=== PATIENT | female | born 1955 | race Caucasian/White ===

== ENCOUNTER 2018-01-15 20:57 | Observation (INO) | payer OTHER, SELFPAY ==
[2018-01-15] VITALS (7 sets, daily range): BP systolic 141–189; BP diastolic 66–104; PULSE 73–101; RESP 14–20; TEMP 36.3–36.9; O2SAT 97–100; BMI 32.2; BMI 33.5; BMI 33.6
--- NOTE | 2018-01-15 21:13 | EKG12_ITS ---
Test Reason : CP Blood Pressure : / mmHG Vent. Rate : 086 BPM Atrial Rate : 086 BPM P-R Int : 148 ms QRS Dur : 098 ms QT Int : 384 ms P-R-T Axes : 026 -20 036 degrees QTc Int : 459 ms Sinus rhythm with frequent Premature ventricular complexes Nonspecific ST abnormality Abnormal ECG Confirmed by ARLYN MCKEON, CHIRAG ([id number]), film or videotape editor MILES KINSEY ([id number]) on 01/16/2018 2:30:24 PM Referred By: DIXIE Confirmed By:CHIRAG STODDARD MD
--- NOTE | 2018-01-15 21:15 | RAD_ITS ---
STUDY: X-RAY CHEST REASON FOR EXAM: Female, 62 years old. Shortness of breath TECHNIQUE: Single AP portable view of the chest. COMPARISON: None. FINDINGS: The lungs are clear and expanded. There is no demonstrated pleural abnormality. Normal size heart. Normal mediastinum and jayson. Normal visualized pulmonary arteries. Normal visualized aortic arch and descending thoracic aorta. Normal visualized thoracic spine. Normal visualized ribs, clavicles, and shoulders. There is no demonstrated abnormality of the visualized soft tissue structures of the upper abdomen. RAD/Chest 1 View (Portable) IMPRESSION: Normal x-ray examination of the chest. Electronically Signed: Darryl Rodriguez MD at 21:42 EST , Service support ,
[2018-01-15 21:24] LABS: Absolute Lymphocyte Count 2.63 X10^3/ul (0.83-4.51); Basophil# 0.02 X10^3/uL; Basophil% 0.3 % (0-1); Eosinophil# 0.43 X10^3/uL; Eosinophils% 5.4 % (0-5); Hematocrit 43.6 % (37-47); Hemoglobin 14.2 g/dl (12.0-15.0); Lymphocyte # 2.63 X10^3/ul (4.0); Lymphocyte % 33.2 % (19-41); Mean Corp Hgb Conc 32.6 g/gl (32-36); Mean Corpuscular Hgb 28.6 pg (27.0-32.0); Mean Corpuscular Volume 87.9 fL (81-99); Mean Platelet Vol. 10.1 fl (6.2-12.0); Monocyte# 0.81 X10^3/uL; Monocyte% 10.2 % (0-10); Neutrophil # 4.03 X10^3/uL (2.7-7.7); Neutrophil % 50.8 % (47-70); POSITIVE COUNT NO; POSITIVE DIFFERENTIAL NO; POSITIVE MORPHOLOGY NO; Platelet Count 283 K/mm3 (150-450); RBC Distribution Width CV 13.5 % (11.6-14.6); RBC Distribution Width SD 43.1 fl (35.1-43.9); Red Blood Count 4.96 M/mm3 (4.2-5.4); White Blood Count 7.9 K/mm3 (4.4-11.0)
[2018-01-15] MEDS: Aspirin 81 MG TAB.CHEW 324 MG PO (21:26)
[2018-01-15 21:44] LABS: Anion Gap 5 (5-15); BUN 22 mg/dL (7-18); BUN/Creat Ratio 19.8 RATIO (10-20); Calcium,Total 9.1 mg/dL (8.5-10.1); Chloride 104 mmol/L (98-107); Creatinine, Serum 1.11 mg/dL (0.55-1.02); EST Glomerular Filtration Rate 53 mL/min (>60); Est Glom Filt Rate - Afr Amer 64 mL/min (>60); Estimated Creatinine Clearance 44.21 ml/min; Glucose 125 mg/dL (74-106); Potassium 3.8 mmol/L (3.5-5.1); Sodium Level 137 mmol/L (136-145)
--- NOTE | 2018-01-15 21:54 | ED.DCSUM_ITS ---
- ER Visit Summary Date of Service: 01/15/18 Chief Complaint: Chest pain History of Present Illness: The patient is a 62 F she reports that approximately 45 minutes ago while at rest she had the onset of a left-sided chest tightness associated with shortness of breath. States that it is 7 out of 10 at worst and 4-10 currently. She denies any associated nausea, vomiting, or diaphoresis. She reports that after this came on she began to feel anxious and went outside to try to catch her breath. She denies any chest pain or change in dyspnea exertion in the past week. She has never had a stress test or heart catheterization. Physical Examination: Vitals: Stable. Afebrile. General: Well-nourished and well-developed. Head: Normocephalic atraumatic. Neck: Supple, no lymphadenopathy. No JVD. Nontender. Cardiovascular: Regular rate and rhythm. No murmurs. Respiratory: No respiratory distress. Clear to auscultation bilaterally. Abdominal: Soft, nontender, nondistended, normal bowel sounds. No guarding, rebound, or peritoneal signs. Back: Nontender. Extremities: Nontender, no edema. Skin: Normal color, no rash. Neurologic: Alert and oriented ?3. Cranial nerves II through XII are intact. Normal strength and sensation. Psych: Normal affect. Test Results: EKG is sinus at 86 with no acute changes. Troponin is negative. Chem-7 is more for BUN of 22, creatinine 1.11, glucose 125. CBC is more for monocytes of 10. Chest x-ray is normal. Emergency Department Course and Treatment: Patient was treated with aspirin. She is resting comfortably. Treatment Plan: The patient was discussed with Dr. Barker. She will be admitted to the hospital for further evaluation and treatment. Disposition: Admitted in improved condition. Impression: 1. Chest pain. 2. JEANINE score of 0. This note was generated with [employer] dictation software. It may contain incorrect words, spelling, and punctuation that were not noted in review of the chart prior to signing ED Disposition - Plan for ED Patient: Chief Complaint: Shortness of Breath Referrals: Neftali Lowe MD [Primary Care Provider] -
--- NOTE | 2018-01-15 22:13 | PCM.HP.STD ---
Problem List (1) Atypical chest pain Status: Acute (2) Anxiety Status: Chronic History of Present Illness Date of Admission: 01/15/18 Chief Complaint: Chest pain today The patient is a 62 year old F with no significant past medical history except anxiety on bupropion came to ER with left-sided chest pain at about 8 PM. She was nervous and anxiety and upset at the workplace with her bowels. She also lifted firewood in the evening but this is not first time and then she felt bilateral shoulder discomfort. After that she was short of breath and felt like she could not take deep breath. She was restless and then developed left-sided chest pain which lasted about an hour. Chest pain was limited on the left side without radiation and has now almost resolved. She denies palpitation, near syncope or syncope. She never had SD or coronary artery disease. In ED her blood pressure was high 189/95 currently systolic 150s. Patient does not want antihypertensive medication and she said her blood pressure in the PCP office recently was 130/84. [] Initial blood workup in the ER is unremarkable. EKG shows normal sinus rhythm with frequent PVCs. Past Medical History Past Medical History (Chronic Problems): Chronic Problems Anxiety (Chronic) Allergies cefazolin [From Anc] Allergy (Verified 01/15/18 21:02) Shortness of breath codeine Allergy (Verified 01/15/18 21:02) Unknown Home Medications: Ambulatory Orders Medication Instructions Recorded Bupropion HCl [Bupropion HCl Sr] 150 mg PO DAILY 01/15/18 Spironolactone 25 mg PO DAILY 01/15/18 Surgical History: no surgical history Smoking Status: Never smoker - *Family History Paternal History Items: No pertinent history Review of Systems Constitutional: Denies: Chills, Fever, Weight Change HEENT: Denies: Head Aches, Sinus Congestion, Sinus Drainage Cardiovascular: Reports: Chest Pain. Denies: Palpitations Respiratory: Reports: Shortness of Breath. Denies: Cough, Shortness of breath at rest, Sputum production Gastrointestinal: Denies: Abdominal Pain, Nausea, Vomiting Genitourinary: Denies: Dysuria Musculoskeletal: Denies: Joint Pain, Joint Tenderness Skin: Denies: Rash, Wounds Neurological: Denies: Numbness, Tingling, Focal weakness Psychiatric: Denies: Anxiety, Depression, Homicidal Ideations, Suicidal Ideations Hematologic/ Lymphatic: Denies: Easy Bruising, Easy Bleeding VTE Information - Inpt Only VTE Present on Admission: No VTE Mechan Device Prophylaxis: SCD's VTE Pharm Prophylaxis ordered?: Yes Patient Problems: Active and Suspected Problems Atypical chest pain (Acute) - Physical Exam General: Alert, Oriented x3, Cooperative HEENT: Atraumatic, PERRLA, EOMI, Normocephalic Neck: Supple, No JVD, Negative Carotid Bruits Lungs: Clear to auscultation, Normal air movement, No rhonchi, No wheeze, No rales Cardiovascular: Regular rate, Regular Rhythm, Normal S1, Normal S2, No murmurs Abdomen: Bowel Sounds Present, Soft, Non Tender, Non-Distended Extremities: No edema, Capillary Refill Less than 3 Seconds Skin: No rashes, No breakdown Musculoskeletal: No Tenderness to Palpation of Joints or Extremities Neurological: Cranial nerves II-XII grossly intact Psych/Mental Status: Normal Affect, Appropriate Vital Signs Temp Pulse Resp BP Pulse Ox 97.4 F L 92 14 189/95 H 100 01/15/18 20:57 01/15/18 21:04 01/15/18 21:04 01/15/18 21:04 01/15/18 21:21 Oxygen Flow Rate 2 Oxygen Delivery Method Nasal Cannula Weight: 188 lb Body Mass Index (BMI) 32.2 Laboratory Tests Past 24 Hrs 01/15/18 01/15/18 21:10 21:10 WBC 7.9 RBC 4.96 Hgb 14.2 Hct 43.6 MCV 87.9 MCH 28.6 MCHC 32.6 RDW 13.5 RDW Differential 43.1 Plt Count 283 MPV 10.1 Immature Gran % (Auto) 0.100 Neut % (Auto) 50.8 Lymph % (Auto) 33.2 Gates % (Auto) 10.2 H Eos % (Auto) 5.4 H Baso % (Auto) 0.3 Absolute Neuts (auto) 4.0 Absolute Lymphs (auto) 2.63 Total Counted Not Reportable Sodium 137 Potassium 3.8 Chloride 104 Carbon Dioxide 28.0 Anion Gap 5 BUN 22 H Creatinine 1.11 H Estim Creat Clear Calc 44.21 Est GFR (MDRD) Af Amer 64 Est GFR (MDRD) Non-Af 53 L BUN/Creatinine Ratio 19.8 Glucose 125 H Calcium 9.1 Troponin I < 0.02 Assessment/Plan Active and Suspected Problems Atypical chest pain (Acute) The patient is a 62 year old F with no significant past medical history except anxiety on bupropion came to ER with left-sided chest pain at about 8 PM. She was nervous and anxiety and upset at the workplace with her Boss. She was restless and then developed left-sided chest pain which lasted about an hour. Chest pain was limited on the left side without radiation, aggravating or relieving factor and has now almost resolved. She denies palpitation, near syncope or syncope. She never had SD or coronary artery disease. In ED her blood pressure was high 189/95 currently systolic 150s. Patient does not want antihypertensive medication and she said her blood pressure in the PCP office recently was 130/84. [] Initial blood workup in the ER is unremarkable. EKG shows normal sinus rhythm with frequent PVCs. 1. Atypical chest pain: Patient is being admitted as an observation in the PCU. ACS protocol with serial cardiac enzymes and treadmill nuclear stress test tomorrow morning. Discussed with the plan and patient agreed that if stress test negative, can be discharged tomorrow. On sublingual nitro as needed for chest pain. 2. Elevated blood pressure probably related to anxiety: Patient denies history of hypertension. Given the option of antihypertensive medication, patient wanted to wait and watch and declined for medication. 3. Chronic anxiety and possible depression: Continue bupropion. DVT prophylaxis: Moderate risk: On Lovenox and bilateral SCDs This note was generated with [employer] dictation software. Every effort was made to ensure accuracy, however computerized animal attendant mistakes may persist. Code Visit OBSV E&M: 88059 Initial observation care L3
--- NOTE | 2018-01-15 22:23 | HP.PCM_ITS ---
Problem List (1) Atypical chest pain Status: Acute (2) Anxiety Status: Chronic History of Present Illness Date of Admission: 01/15/18 Chief Complaint: Chest pain today The patient is a 62 year old F with no significant past medical history except anxiety on bupropion came to ER with left-sided chest pain at about 8 PM. She was nervous and anxiety and upset at the workplace with her bowels. She also lifted firewood in the evening but this is not first time and then she felt bilateral shoulder discomfort. After that she was short of breath and felt like she could not take deep breath. She was restless and then developed left- sided chest pain which lasted about an hour. Chest pain was limited on the left side without radiation and has now almost resolved. She denies palpitation , near syncope or syncope. She never had IN or coronary artery disease. In ED her blood pressure was high 189/95 currently systolic 150s. Patient does not want antihypertensive medication and she said her blood pressure in the PCP office recently was 130/84. [] Initial blood workup in the ER is unremarkable. EKG shows normal sinus rhythm with frequent PVCs. Past Medical History Past Medical History (Chronic Problems): Chronic Problems Anxiety (Chronic) Allergies cefazolin [From Anc] Allergy (Verified 01/15/18 21:02) Shortness of breath codeine Allergy (Verified 01/15/18 21:02) Unknown Home Medications: Ambulatory Orders Medication Instructions Recorded Bupropion HCl [Bupropion HCl Sr] 150 mg PO DAILY 01/15/18 Spironolactone 25 mg PO DAILY 01/15/18 Surgical History: no surgical history Smoking Status: Never smoker - *Family History Paternal History Items: No pertinent history Review of Systems Constitutional: Denies: Chills, Fever, Weight Change HEENT: Denies: Head Aches, Sinus Congestion, Sinus Drainage Cardiovascular: Reports: Chest Pain. Denies: Palpitations Respiratory: Reports: Shortness of Breath. Denies: Cough, Shortness of breath at rest, Sputum production Gastrointestinal: Denies: Abdominal Pain, Nausea, Vomiting Genitourinary: Denies: Dysuria Musculoskeletal: Denies: Joint Pain, Joint Tenderness Skin: Denies: Rash, Wounds Neurological: Denies: Numbness, Tingling, Focal weakness Psychiatric: Denies: Anxiety, Depression, Homicidal Ideations, Suicidal Ideations Hematologic/ Lymphatic: Denies: Easy Bruising, Easy Bleeding VTE Information - Inpt Only VTE Present on Admission: No VTE Mechan Device Prophylaxis: SCD's VTE Pharm Prophylaxis ordered?: Yes Patient Problems: Active and Suspected Problems Atypical chest pain (Acute) - Physical Exam General: Alert, Oriented x3, Cooperative HEENT: Atraumatic, PERRLA, EOMI, Normocephalic Neck: Supple, No JVD, Negative Carotid Bruits Lungs: Clear to auscultation, Normal air movement, No rhonchi, No wheeze, No rales Cardiovascular: Regular rate, Regular Rhythm, Normal S1, Normal S2, No murmurs Abdomen: Bowel Sounds Present, Soft, Non Tender, Non-Distended Extremities: No edema, Capillary Refill Less than 3 Seconds Skin: No rashes, No breakdown Musculoskeletal: No Tenderness to Palpation of Joints or Extremities Neurological: Cranial nerves II-XII grossly intact Psych/Mental Status: Normal Affect, Appropriate Vital Signs Temp Pulse Resp BP Pulse Ox 97.4 F L 92 14 189/95 H 100 01/15/18 20:57 01/15/18 21:04 01/15/18 21:04 01/15/18 21:04 01/15/18 21:21 Oxygen Flow Rate 2 Oxygen Delivery Method Nasal Cannula Weight: 188 lb Body Mass Index (BMI) 32.2 Laboratory Tests Past 24 Hrs 01/15/18 01/15/18 21:10 21:10 WBC 7.9 RBC 4.96 Hgb 14.2 Hct 43.6 MCV 87.9 MCH 28.6 MCHC 32.6 RDW 13.5 RDW Differential 43.1 Plt Count 283 MPV 10.1 Immature Gran % (Auto) 0.100 Neut % (Auto) 50.8 Lymph % (Auto) 33.2 Harlan % (Auto) 10.2 H Eos % (Auto) 5.4 H Baso % (Auto) 0.3 Absolute Neuts (auto) 4.0 Absolute Lymphs (auto) 2.63 Total Counted Not Reportable Sodium 137 Potassium 3.8 Chloride 104 Carbon Dioxide 28.0 Anion Gap 5 BUN 22 H Creatinine 1.11 H Estim Creat Clear Calc 44.21 Est GFR (MDRD) Af Amer 64 Est GFR (MDRD) Non-Af 53 L BUN/Creatinine Ratio 19.8 Glucose 125 H Calcium 9.1 Troponin I < 0.02 Assessment/Plan Active and Suspected Problems Atypical chest pain (Acute) The patient is a 62 year old F with no significant past medical history except anxiety on bupropion came to ER with left-sided chest pain at about 8 PM. She was nervous and anxiety and upset at the workplace with her Boss. She was restless and then developed left-sided chest pain which lasted about an hour. Chest pain was limited on the left side without radiation, aggravating or relieving factor and has now almost resolved. She denies palpitation, near syncope or syncope. She never had IN or coronary artery disease. In ED her blood pressure was high 189/95 currently systolic 150s. Patient does not want antihypertensive medication and she said her blood pressure in the PCP office recently was 130/84. [] Initial blood workup in the ER is unremarkable. EKG shows normal sinus rhythm with frequent PVCs. 1. Atypical chest pain: Patient is being admitted as an observation in the PCU. ACS protocol with serial cardiac enzymes and treadmill nuclear stress test tomorrow morning. Discussed with the plan and patient agreed that if stress test negative, can be discharged tomorrow. On sublingual nitro as needed for chest pain. 2. Elevated blood pressure probably related to anxiety: Patient denies history of hypertension. Given the option of antihypertensive medication, patient wanted to wait and watch and declined for medication. 3. Chronic anxiety and possible depression: Continue bupropion. DVT prophylaxis: Moderate risk: On Lovenox and bilateral SCDs This note was generated with [employer] dictation software. Every effort was made to ensure accuracy, however computerized set up mechanic coating machines mistakes may persist. Code Visit OBSV E&M: 12554 Initial observation care L3
[2018-01-16 03:12] VITALS: PULSE 64
[2018-01-16 04:50] VITALS: BP 139/84; PULSE 65; RESP 14; TEMP 36.6; O2SAT 97
[2018-01-16] MEDS: 0.9% NaCl Peripheral Flush Adult/Peds IV (05:03)
[2018-01-16 05:21] LABS: Absolute Lymphocyte Count 1.66 X10^3/ul (0.83-4.51); Absolute Neutrophil Count 4.2 X10^3/uL (2.0-7.7); Basophil# 0.03 X10^3/uL; Basophil% 0.4 % (0-1); Eosinophil# 0.25 X10^3/uL; Eosinophils% 3.7 % (0-5); Hematocrit 43.4 % (37-47); Lymphocyte # 1.66 X10^3/ul (4.0); Lymphocyte % 24.3 % (19-41); Mean Corp Hgb Conc 32.3 g/gl (32-36); Mean Corpuscular Hgb 28.5 pg (27.0-32.0); Mean Corpuscular Volume 88.2 fL (81-99); Mean Platelet Vol. 10.1 fl (6.2-12.0); Monocyte# 0.64 X10^3/uL; Monocyte% 9.4 % (0-10); Neutrophil # 4.24 X10^3/uL (2.7-7.7); Neutrophil % 62.1 % (47-70); Platelet Count 271 K/mm3 (150-450); RBC Distribution Width CV 13.5 % (11.6-14.6); RBC Distribution Width SD 43.7 fl (35.1-43.9); Red Blood Count 4.92 M/mm3 (4.2-5.4); White Blood Count 6.8 K/mm3 (4.4-11.0)
[2018-01-16 05:24] LABS: POSITIVE COUNT NO; POSITIVE DIFFERENTIAL NO; POSITIVE MORPHOLOGY NO
[2018-01-16 05:46] LABS: Anion Gap 7 (5-15); BUN 22 mg/dL (7-18); BUN/Creat Ratio 25.7 RATIO (10-20); Chloride 104 mmol/L (98-107); Cholesterol 230 mg/dL (200); Creatinine, Serum 0.86 mg/dL (0.55-1.02); EST Glomerular Filtration Rate 71 mL/min (>60); Est Glom Filt Rate - Afr Amer 86 mL/min (>60); Estimated Creatinine Clearance 57.07 ml/min; Glucose 93 mg/dL (74-106); High Density Lipoprotein 58 mg/dL; Potassium 4.5 mmol/L (3.5-5.1); Sodium Level 141 mmol/L (136-145); Thyroid Stim Hormone (TSH) 2.22 uIU/mL (0.358-3.74); Triglycerides 141 mg/dL; Very Low Density Lipoprotein 28 mg/dL (5-40)
[2018-01-16 05:52] LABS: International Normalized Ratio 1.2; Partial Thromboplast Time 29.6 Seconds (24.1-36.2); Prothrombin Time (Protime)PT. 14.6 SECONDS (11.7-14.9)
--- NOTE | 2018-01-16 05:55 | EKG12_ITS ---
Test Reason : AM EKG Blood Pressure : / mmHG Vent. Rate : 063 BPM Atrial Rate : 063 BPM P-R Int : 160 ms QRS Dur : 098 ms QT Int : 442 ms P-R-T Axes : 023 -20 018 degrees QTc Int : 452 ms Normal sinus rhythm Normal ECG When compared with ECG of 15-JAN-2018 21:07, MANUAL COMPARISON REQUIRED, DATA IS UNCONFIRMED Confirmed by ARLYN MCKEON, CHIRAG ([id number]), electronic news gathering editor MILES KINSEY ([id number]) on 01/23/2018 1:21:27 PM Referred By: DR KELLOGG Confirmed By:CHIRAG STODDARD MD
[2018-01-16 06:54] VITALS: PULSE 69
--- NOTE | 2018-01-16 08:45 | STRESSREP ---
Stress Test Report Exercise myocardial perfusion stress test. 62-year-old lady with a history of chest pain. Stress protocol: Resting EKG demonstrates normal sinus rhythm with a rate of 71 bpm. Resting blood pressure is 122/88 mmHg. The patient exercised according to the regular Celio protocol for a total duration of 7 minutes and 15 seconds completing 1 minute and 15 seconds into stage III of the Celio protocol. The maximum heart rate attained was 141 bpm which was 90% of the maximum predicted heart rate. The maximum workload was 8.9 metabolic equivalents. At rest there were no ST or T-wave changes noted to suggest ischemia at peak exercise upsloping ST changes only were noted we did not meet the criteria for ischemia. The resting blood pressure is 122/88 with a peak blood pressure 184/80. No angina was noted no arrhythmias were noted. The test was terminated due to leg fatigue. Myocardial perfusion protocol: 11.9 mCi of technetium 99m sestamibi was injected at rest. The patient exercised according to the regular Celio protocol. At peak exercise 33.4 mCi of technetium 99m sestamibi was injected. Stress and rest images were reconstructed and compared in the short axis vertical long and horizontal long axis. Gated images were also obtained. Perfusion SPECT analysis: Review of the stress images demonstrate normal uptake of tracer in all areas of the myocardium. The resting images similarly demonstrated normal uptake of tracer noted in all areas of the myocardium. No areas of reversibility are noted suggest ischemia no previous infarct is noted. Gated SPECT analysis: The gated ejection fraction is noted to be 75%. No wall motion abnormalities are present. Conclusion: Normal exercise myocardial perfusion stress test at a moderate workload with no evidence of ischemia. Preserved ejection fraction.
[2018-01-16 10:15] VITALS: BP 142/77; PULSE 75; RESP 18; TEMP 37.1; O2SAT 98
[2018-01-16] MEDS: Loratadine 10 MG Tablet PO (10:21)
[2018-01-16] MEDS: Spironolactone 25 MG Tablet PO (10:22)
[2018-01-16 11:12] VITALS: PULSE 74
--- NOTE | 2018-01-16 11:44 | PCM.DC ---
- Discharge Diagnoses Current Active Problems: Current Active and Chronic Problems Atypical chest pain (Acute) Anxiety (Chronic) You will use the following diet at home:: Cardiac - 3g sodium restriction Your food should be the consistency of: Regular Your liquids should be the consistency of: Regular/Thin Discharge Activity: Return to Normal Activity Allergies/Adverse Reactions: Allergies cefazolin [From Anc] Allergy (Verified 01/15/18 21:02) Shortness of breath codeine Allergy (Verified 01/15/18 21:02) Unknown Medications to take at Discharge Bupropion HCl [Bupropion HCl Sr] 150 mg PO DAILY 01/15/18 Cetirizine HCl [Zyrtec] 10 mg PO DAILY 01/15/18 Spironolactone 25 mg PO DAILY 01/15/18 Amlodipine [Norvasc] 5 mg PO DAILY #30 tab 01/16/18 Atorvastatin Calcium [Lipitor] 10 mg PO QHS #30 tab 01/16/18 The following prescriptions were given: Amlodipine [Norvasc] 5 mg PO DAILY #30 tab Atorvastatin Calcium [Lipitor] 10 mg PO QHS #30 tab Primary Care Physician: Neftali Lowe MD [Primary Care Provider] - Please follow up with your Primary Care Physician in: 1-2 weeks Proposed Discharge Date: 01/16/18
--- NOTE | 2018-01-16 12:04 | PCM.DC.SUM ---
Discharge Date and Diagnosis - Problem List Patient Problems: Active and Suspected Problems Atypical chest pain (Acute) Date of Admission: 01/15/18 Date of Discharge: 01/16/18 - Primary Discharge Diagnosis Active and Suspected Problems Atypical chest pain (Acute) - musculoskeletal HTN HLD Chronic anx/depression Chronic vertigo - Secondary Discharge Diagnosis Chronic Problems Anxiety (Chronic) Hospital Course and Treatment Imaging Results: 01/16/18 05:55 Nuclear Stress Test - Treadmil [NM] AM (NON MEDS) Conclusion: Normal exercise myocardial perfusion stress test at a moderate workload with no evidence of ischemia. Preserved ejection fraction. RAD/Chest 1 View (Portable) IMPRESSION: Normal x-ray examination of the chest. Operations: None Procedures: Stress test Summary of Care Provided: General: Resting comfortably NAD Psych: A/Ox3 normal affect HEENT: PEARRLA AT NC Neck: Supple NT CV: RRR no m/t/r/g/h Resp: CTA Abd: [id number] Soft NT no guarding or rigidity Ext: DP2+= no edema Skin: W/D normal turgor Lymph/Heme: No active bleeding or adenopathy Neuro: CN2-12 intact Hospital course: The patient is a 62 year old F who presented to the emergency room with chief complaint of chest pain that began that day earlier when she was highly stressed out with conversation with her boss, and after lifting firewood at home. She described her pain is left-sided with some pain in the shoulders as well. Pain lasts about an hour and was nonradiating. Had resolved by time she came to the emergency room. In the ER her blood pressure was significantly elevated at 189/95, she had negative troponin, negative chest x-ray, and EKG with PVCs. She is admitted for chest pain workup. Troponin was cycled remained negative. She was remained on telemetry with no events overnight. The following morning she had a normal EKG. She underwent stress testing which was negative for inducible ischemia. Lipid panel was checked and had an elevated LDL so she was started on low-dose atorvastatin. Her blood pressure did improve but did remain elevated in the 140 systolic so she was started on Norvasc. She is also started on daily baby aspirin. She is discharged home in stable condition and will need follow-up with her PCP in 1-2 weeks. This patient was seen by Isael Quintanilla PA-C under the supervision of Doctor Loly. [] Discharge Diet: Low fat/ Low Cholesterol, - - 3 g sodium daily Discharge Activity: Return to Normal Activity Home Medications: Medications to take at Discharge Bupropion HCl [Bupropion HCl Sr] 150 mg PO DAILY 01/15/18 Cetirizine HCl [Zyrtec] 10 mg PO DAILY 01/15/18 Spironolactone 25 mg PO DAILY 01/15/18 Amlodipine [Norvasc] 5 mg PO DAILY #30 tab 01/16/18 Aspirin [Aspirin, Baby] 81 mg PO DAILY@0800 #30 tab.chew 01/16/18 Atorvastatin Calcium [Lipitor] 10 mg PO QHS #30 tab 01/16/18 Following Prescrptions Were Given to Patient: Amlodipine [Norvasc] 5 mg PO DAILY #30 tab Aspirin [Aspirin, Baby] 81 mg PO DAILY@0800 #30 tab.chew Atorvastatin Calcium [Lipitor] 10 mg PO QHS #30 tab Primary Care Physician: Neftali Lowe MD [Primary Care Provider] - Please follow up with your Primary Care Physician in: 1-2 weeks Disposition: Home Minutes spent on discharge:: 35 Patient Condition:: Stable Meaningful Use Info Meaningful Use Diagnoses (Choose all that apply): None applicable
== END 2018-01-16 13:28 | disposition home or self-care (01) ==
LOC: ED 21:46 → PCU 22:15
PROVIDERS: Admitting Provider Internal Medicine; Emergency Provider Emergency Medicine; Family Provider Family Medicine; PCP Family Medicine; Visit Provider Family Medicine
DX: R07.89 Other chest pain (principal); E78.5 Hyperlipidemia, unspecified; R03.0 Elevated blood-pressure reading, without diagnosis of hypertension; F41.9 Anxiety disorder, unspecified; F32.9 Major depressive disorder, single episode, unspecified; Z79.899 Other long term (current) drug therapy
CPT/HCPCS: 36415; 71045; 78452; 80048; 80061; 84443; 84484; 85025; 85610; 85730; 93005; 93017; 99218; 99285; A9500; A4216; G0378

== ENCOUNTER → 2018-08-23 08:19 | Outpatient (CLI) | payer OTHER, SELFPAY ==
--- NOTE | 2018-08-23 08:22 | BI_ITS ---
MAMMOGRAPHY - BILATERAL SCREENING 3-D LELAND SYNTHESIS REASON FOR EXAM: Female, 62 years old. Bilateral Screening 3-D tomosynthesis PERTINENT HISTORY: Left breast excisional biopsy 1992. 1 paternal aunt and one maternal aunt, both approximate age 50. TECHNIQUE: 2-D mammograms and 3-D Leland synthesis of the breast (s) were performed. CAD was performed. COMPARISON: 06/25/2017, 05/05/2016 and 04/26/2015. FINDINGS: The breast composition is composed of scattered fibroglandular density. No dense spiculated dominant masses or suspicious microcalcification cluster are identified. No architectural distortion, asymmetric density, skin thickening or nipple retraction identified. There has been no significant change since the prior study. BI/SCREENING MAMM (CAD), BILAT IMPRESSION: No mammographic signs of malignancy. Routine yearly mammograms recommended. ASSESSMENT CATEGORY: BIRADS Category 2: Benign. A letter regarding these results will be sent to the patient by the facility within 30 days. FOLLOW UP RECOMMENDATION: Yearly follow up mammogram recommended. (A) Negative mammographic results should not deter biopsy as a palpable lesion if present should be followed based on clinical grounds and biopsy performed if clinically persistent for 3 months or increasing size. Approximately 10% of breast cancers are not detected by mammography. A normal mammogram should not delay biopsy of a clinically suspicious abnormality. Electronically Signed: Remi Luu, at 8:15 EDT Tel , Service support ,
== END ==
PROVIDERS: Family Provider Family Medicine; PCP Family Medicine; Referring Provider Family Medicine; Visit Provider Family Medicine
DX: Z12.31 Encounter for screening mammogram for malignant neoplasm of breast (principal)
CPT/HCPCS: 77063; 77067

== ENCOUNTER → 2018-09-23 13:06 | Outpatient (CLI) | payer OTHER, SELFPAY ==
--- NOTE | 2018-09-23 13:10 | RAD_ITS ---
STUDY: X-RAY - SOFT TISSUE NECK REASON FOR EXAM: Female, 62 years old. Snoring. Possible sleep apnea. TECHNIQUE: AP and lateral view(s) of the neck were obtained. COMPARISON: None. FINDINGS: Normal visualized nasopharynx, oropharynx, hypopharynx. The airway measures 12.2 mm from the base of the tongue to the anterior paravertebral soft tissues at the C2-C3 level. Normal epiglottis. Normal visualized subglottic tracheal air column. Normal prevertebral soft tissue structures. There are degenerative changes of the cervical spine with cervical spondylosis. The soft tissue structures are unremarkable. RAD/Neck for Soft Tissue IMPRESSION: The airway measures 12.2 mm from the base of the tongue into the anterior prevertebral soft tissues. Electronically Signed: Breezy Galan MD at 11:19 EST Tel [phone], Service support ,
== END ==
PROVIDERS: Family Provider Family Medicine; PCP Family Medicine; Referring Provider Otolaryngology Otolaryngology/Facial Plastic Surgery; Visit Provider Otolaryngology Otolaryngology/Facial Plastic Surgery
DX: R06.83 Snoring (principal)
CPT/HCPCS: 70360

== ENCOUNTER → 2019-09-19 08:02 | Outpatient (CLI) | payer OTHER, SELFPAY ==
[2019-09-19 10:24] LABS: Vitamin D,25 Hydroxy 29.3 ng/mL (29.95-100.01)
[2019-09-19 10:37] LABS: Anion Gap 10 (5-15); BUN 20 mg/dL (7-18); BUN/Creat Ratio 24.1 RATIO (10-20); Calcium,Total 9.1 mg/dL (8.5-10.1); Chloride 104 mmol/L (98-107); Cholesterol 240 mg/dL (200); Creatinine, Serum 0.83 mg/dL (0.55-1.02); EST Glomerular Filtration Rate 73 mL/min (>60); Est Glom Filt Rate - Afr Amer 89 mL/min (>60); Glucose 90 mg/dL (74-106); High Density Lipoprotein 62 mg/dL; Potassium 4.2 mmol/L (3.5-5.1); Sodium Level 139 mmol/L (136-145); Triglycerides 133 mg/dL; Very Low Density Lipoprotein 27 mg/dL (5-40)
== END ==
PROVIDERS: Family Provider Family Medicine; PCP Family Medicine; Visit Provider Family Medicine
DX: Z00.00 Encounter for general adult medical examination without abnormal findings (principal)
CPT/HCPCS: 36415; 80048; 80061; 82306

== ENCOUNTER → 2019-09-29 08:04 | Outpatient (CLI) | payer OTHER, SELFPAY ==
[2018-01-15 22:58] VITALS: BMI 33.5
--- NOTE | 2019-09-29 08:08 | BI_ITS ---
MAMMOGRAPHY - BILATERAL SCREENING REASON FOR EXAM: Female, 63 years old. Routine annual screening examination. PERTINENT HISTORY: Aunt with breast cancer. Remote left excisional breast biopsy. TECHNIQUE: Digital bilateral breast leland (3D mammographic acquisition) in the CC and MLO projections. 2-D mediolateral oblique (MLO) and craniocaudad (CC) views of both breasts were obtained. CAD: Full Field Digital Mammography with Computer Added Detection was performed. COMPARISON: Comparison is made with prior study September 17, 2018 and June 25, 2017. FINDINGS: Breast Composition: There are scattered areas of fibroglandular density. Questionable area of architectural distortion in the deep lateral aspect of the left breast as seen on the craniocaudad view. The patient will be recalled for additional views including compression spot views and exaggerated craniocaudad view. No other significant abnormalities are identified. BI/SCREEN MAMM (CAD) W/LELAND BILAT IMPRESSION: Focal area of architectural distortion in the deep lateral aspect of the left breast as seen on the craniocaudad view. Patient will be recalled for additional views. Recall Side: Left Breast ASSESSMENT CATEGORY: BIRADS Category 0: Incomplete. Need additional imaging evaluation. A letter regarding these results will be sent to the patient by the facility within 30 days. Approximately 10% of breast cancers are not detected by mammography. A normal mammogram should not delay biopsy of a clinically suspicious abnormality. [id number] Electronically Signed: Breezy Galan, at 11:19 EST , Service support ,
== END ==
PROVIDERS: Family Provider Family Medicine; PCP Family Medicine; Referring Provider Family Medicine; Visit Provider Family Medicine
DX: Z12.31 Encounter for screening mammogram for malignant neoplasm of breast (principal); Z80.3 Family history of malignant neoplasm of breast
CPT/HCPCS: 77063; 77067

== ENCOUNTER → 2019-09-30 08:53 | Outpatient (CLI) | payer OTHER, SELFPAY ==
--- NOTE | 2019-09-30 08:55 | BI_ITS ---
MAMMOGRAPHY - UNILATERAL DIAGNOSTIC: LEFT BREAST REASON FOR EXAM: Female, 63 years old. Abnormal screening mammogram. PERTINENT HISTORY: Aunt with breast cancer. TECHNIQUE: Compression spot views as well as a 90 degree lateral view of the left breast were obtained. An exaggerated craniocaudad view was obtained as well. CAD: Full Field Digital Mammography with Computer Added Detection was performed. COMPARISON: Comparison is made with prior mammogram dated September 29, 2019. FINDINGS: Breast Composition: There are scattered areas of fibroglandular density. The previously seen possible area of architectural distortion in the deep lateral aspect of the left breast is not seen at this time. This represents superimposition of tissue. No other significant abnormalities are identified. BI/DIAG MAMM W/CAD, UNILAT IMPRESSION: Negative unilateral diagnostic mammogram. Yearly followup mammogram recommended. (A) ASSESSMENT CATEGORY: BIRADS Category 2: Benign. A letter regarding these results will be sent to the patient by the facility within 30 days. Approximately 10% of breast cancers are not detected by mammography. A normal mammogram should not delay biopsy of a clinically suspicious abnormality. Electronically Signed: Breezy Galan, at 9:54 EST , Service support ,
== END ==
PROVIDERS: Family Provider Family Medicine; PCP Family Medicine; Referring Provider Family Medicine; Visit Provider Family Medicine
DX: R92.8 Other abnormal and inconclusive findings on diagnostic imaging of breast (principal); Z80.3 Family history of malignant neoplasm of breast
CPT/HCPCS: 77065

== ENCOUNTER → 2020-09-15 09:59 | Outpatient (CLI) | payer OTHER, SELFPAY ==
[2018-01-15 22:58] VITALS: BMI 33.5
[2020-09-15 12:48] LABS: Vitamin D,25 Hydroxy 27.1 ng/mL
[2020-09-15 12:53] LABS: Anion Gap 6 (5-15); BUN 14 mg/dL (7-18); BUN/Creat Ratio 16.1 RATIO (10-20); Calcium,Total 9.3 mg/dL (8.5-10.1); Chloride 104 mmol/L (98-107); Cholesterol 248 mg/dL (200); Creatinine, Serum 0.87 mg/dL (0.55-1.02); EST Glomerular Filtration Rate 69 mL/min (>60); Est Glom Filt Rate - Afr Amer 84 mL/min (>60); Glucose 89 mg/dL (74-106); High Density Lipoprotein 64 mg/dL; Potassium 4.2 mmol/L (3.5-5.1); Sodium Level 138 mmol/L (136-145); Triglycerides 210 mg/dL; Very Low Density Lipoprotein 42 mg/dL (5-40)
== END ==
PROVIDERS: PCP Family Medicine; Referring Provider Family Medicine; Visit Provider Family Medicine
DX: Z00.00 Encounter for general adult medical examination without abnormal findings (principal)
CPT/HCPCS: 36415; 80048; 80061; 82306

== ENCOUNTER → 2021-09-07 08:49 | Outpatient (CLI) | payer OTHER, SELFPAY ==
[2021-09-07 10:40] LABS: Anion Gap 6 (5-15); BUN 18 mg/dL (7-18); Calcium,Total 8.9 mg/dL (8.5-10.1); Chloride 106 mmol/L (98-107); Cholesterol 229 mg/dL (200); Creatinine, Serum 0.75 mg/dL (0.55-1.02); EST Glomerular Filtration Rate 82 mL/min (>60); Est Glom Filt Rate - Afr Amer 99 mL/min (>60); Glucose 91 mg/dL (74-106); High Density Lipoprotein 58 mg/dL; Sodium Level 140 mmol/L (136-145); Triglycerides 100 mg/dL; Very Low Density Lipoprotein 20 mg/dL (5-40)
[2021-09-07 12:48] LABS: Vitamin D,25 Hydroxy 40.8 ng/mL
== END ==
PROVIDERS: PCP Family Medicine; Referring Provider Family Medicine; Visit Provider Family Medicine
DX: Z00.00 Encounter for general adult medical examination without abnormal findings (principal); Z20.822 Contact with and (suspected) exposure to COVID-19
CPT/HCPCS: 36415; 80048; 80061; 82306; 86769

== ENCOUNTER 2022-01-14 11:32 | Emergency (ER) | payer OTHER, SELFPAY ==
[2022-01-14 11:33] VITALS: BP 186/83; PULSE 84; RESP 16; TEMP 36.3; O2SAT 97; BMI 31.6
--- NOTE | 2022-01-14 11:51 | ED.VIS.LOWEX ---
HPI History of Present Illness Chief Complaint: Lower Extremity Injury Informant: patient Occured/Mechanism Mechanism/Context: Yes blunt trauma Onset/Context/Timing Onset: Yesterday Context: Sudden Onset Timing: Continuous Quality of Pain: Aching Current Severity: Moderate Maximum Severity: Moderate Associated Symptoms Associated Symptoms: Negative for Parasthesia, Weakness and Loss of Funtion Narrative Narrative: 66 yo female history of hypertension. States that she was walking down the steps last night she missed a step and injured her right knee. She fell and hyperflexed and thinks she stretched the soft tissues around it. No prior right knee history. No surgery to the right knee. Denies any other injuries. Did not hit her head. No LOC. No neck or back pain. Prior similar symptoms: No Recent Illness/Hospitalization: No PFSH PFSH Home Medications bupropion HCl (smoking deter) 150 mg PO DAILY 01/15/18 [History Last Taken 01/15/18 08:00] cetirizine [Zyrtec] 10 mg PO DAILY 01/15/18 [History Last Taken 01/15/18 08:00] spironolactone 25 mg PO DAILY 01/15/18 [History Last Taken 01/15/18 08:00] amlodipine 5 mg PO DAILY #30 tab 01/16/18 [Rx Last Taken Unknown] aspirin 81 mg PO DAILY@0800 #30 tab.chew 01/16/18 [Rx Last Taken Unknown] atorvastatin 10 mg PO QHS #30 tab 01/16/18 [Rx Last Taken Unknown] Allergy/AdvReac Type Severity Reaction Status Date / Time cefazolin [From [facility]] Allergy Shortness Verified 01/14/22 11:34 of breath codeine Allergy Unknown Verified 01/14/22 11:34 Social History Smoking Status: Never smoker ROS ROS ED ROS Narrative Denies recent illness. Review of Systems ROS Unobtainable: Denies due to encephalopathy Constitutional Constitutional ED: Denies fever(s) Eyes Eyes: Denies change in vision ENT ENT ED: Denies ear pain Cardiovascular Cardiovascular: Denies chest pain Respiratory/Chest Respiratory/Chest: Denies dyspnea Gastrointestinal Gastrointestinal: Denies abdominal pain, diarrhea, nausea or vomiting Genitourinary Genitourinary ED: Denies dysuria Musculoskeletal Musculoskeletal: Denies myalgias Integumentary Denies rash Neurologic Neurologic: Denies headache(s) Psychiatric Psychiatric: Denies depression Endocrine Endocrinology: Denies polyuria Hematologic/Lymphatic Hematologic/Lymphatic: Denies easy bruising Allergic/Immunologic Allergic/Immunologic ED: Denies urticaria EXAM Physical Exam Narrative Exam Narrative: 58-year-old female no acute distress. Vital signs stable afebrile. H EENT exam unremarkable atraumatic nontender. C-spine nontender. Lungs are clear. Heart regular rhythm. Chest wall nontender. Abdomen soft nontender. Back and spine nontender no signs of trauma. Pelvic girdle intact. No shortening or rotation. No hip tenderness. Left lower extremity both upper extremities are nontender with normal range of motion, strength and sensation. Right knee tender. Minimal swelling. No significant large effusion. Ligaments are intact including the ACL, PCL, MCL, LCL. Also the quadriceps and infrapatellar tendons are intact. She can flex the knee with some discomfort. She can extend 180 degrees. She can lift her leg off the bed. No gross bony deformity. Right ankle and foot are nontender with normal range of motion and motor strength. Neurologic exam she is awake alert with no focal motor deficits. GCS of 15. Const Vital Signs: 01/14/22 11:33 Temperature 97.4 F L Temperature Source Temporal Pulse Rate 84 Respiratory Rate 16 Blood Pressure 186/83 H Blood Pressure Mean 117 Pulse Ox 97 Oxygen Delivery Method Room Air Positive well nourished and well developed; Negative for cachectic, contractures or unkempt General Appearance ED: well developed and NAD; Negative for unkempt, cachectic or contractures Nutritional Appearance: Negative for cachectic HEENT Reports moist mucous membranes normocephalic and atraumatic Eyes PERRL Neck full ROM and supple Thyroid: Negative for tender Chest Wall inspection of chest normal and palpation of chest normal Resp normal respiratory effort, no retractions and clear to auscultation bilaterally Auscultation: rales; Negative for rhonchi or wheezes Cardio regular rate, regular rhythm, S1 normal heart sound, S2 normal heart sound and no murmurs GI non-tender, non-distended and no masses Inspection: Negative for abdominal distention Auscultation: normoactive bowel sounds Palpation: soft; Negative for tender, guarding or rebound tenderness present Back/Spine no CVA tenderness General Back: Negative for CVA tenderness Cervical Spine: Negative for cervical spine tenderness Thoracic Spine / Upper Back: Negative for thoracic spinal tenderness Lumbar Spine / Lower Back: Negative for lumbar spinal tenderness Extremity normal to inspection and full ROM Extremity Narrative: Except tenderness of the right knee. Ligaments intact. Mild swelling. No significant effusion. Flexion extension intact. No bony deformity. General Extremety ED: Negative for cyanosis or edema General Extremity: Negative for cyanosis or edema Neuro oriented x3 Sensorium / Orientation: alert, oriented to person, oriented to place and oriented to time; Negative for confused or lethargic Motor Exam: strength 5/5 throughout Psych mental status grossly normal Appearance: Negative for unkempt Mood & Affect: Negative for anxious Skin no wounds Lesions: no lesions Rashes: no rashes Trauma: Negative for abrasion or laceration MDM MDM MDM Narrative Medical decision making narrative: Patient with a fall last night complaining of right knee pain. X-ray being obtained. Repeat exam at 12 PM unchanged. Patient be discharged home and treated as a knee sprain. Ice, elevate, Motrin and Tylenol for pain. Follow-up if not improving for further evaluation. I did discuss with the patient that x-rays are good for fractures and dislocations but are not good if there would be a soft tissue injury or an injury to the knee joint soft tissue. Radiography Diagnostic Testing: Right knee x-ray, 4 views, interpreted by myself. She has no acute abnormality. Chronic changes. No fracture. No dislocation. No significant effusion. Discharge Plan Triage Chief Complaint: Lower Extremity Injury ED Provider: Deandre Hernandez Dx/Rx/DC Orders Clinical Impression: Knee sprain, Fall Instructions: ED Knee Sprain Prescriptions: No Action spironolactone 25 MG tablet 25 mg PO DAILY RF: 0 bupropion HCl (smoking deter) 150 MG Tab.Er.12h 150 mg PO DAILY RF: 0 cetirizine [Zyrtec] 10 MG tablet 10 mg PO DAILY RF: 0 atorvastatin 10 MG tablet 10 mg PO QHS Qty: 30 RF: 0 amlodipine 5 MG tablet 5 mg PO DAILY Qty: 30 RF: 0 aspirin 81 MG Tab.Chew 81 mg PO DAILY@0800 Qty: 30 RF: 0 Primary Care Provider: Neftali Lowe Referrals: Neftali Lowe MD [Primary Care Provider] - 10-14 Days if not better Activity Restrictions/Additional Instructions: Ice and elevate your knee for the next several days. Motrin for pain and inflammation and Tylenol for pain. Increase activity slowly as tolerated. Follow-up with your primary care physician if not improving. The x-rays were unremarkable. Disposition Disposition: Home, Self Care
--- NOTE | 2022-01-14 12:05 | RAD_ITS ---
STUDY: X-RAY - RIGHT KNEE REASON FOR EXAM: Female, 66 years old. Status post fall TECHNIQUE: 4 view(s) of the knee. COMPARISON: None. FINDINGS: Normal visualized distal femur. Normal visualized proximal tibia and fibula. Normal proximal tibiofibular articulation. There is no demonstrated fracture. Normal medial femorotibial compartment. Normal lateral femorotibial compartment. There is mild to moderate degenerative arthrosis of the patellofemoral articulation. There is no demonstrated joint effusion. The soft tissue structures are unremarkable. RAD/Knee 4 or More Views IMPRESSION: Degenerative arthrosis. No demonstrated acute osseous injury. Electronically Signed: Shawn Wolff, at 12:31 EST ,
== END 2022-01-14 12:31 | disposition home or self-care (01) ==
PROVIDERS: Emergency Provider Emergency Medicine; PCP Family Medicine; Visit Provider Emergency Medicine
DX: S83.91XA Sprain of unspecified site of right knee, initial encounter (principal); W10.9XXA Fall (on) (from) unspecified stairs and steps, initial encounter; Y93.01 Activity, walking, marching and hiking; I10 Essential (primary) hypertension; Z79.899 Other long term (current) drug therapy
CPT/HCPCS: 73564; 99282

== ENCOUNTER → 2022-09-08 | Outpatient (CLI) | payer OTHER, SELFPAY ==
[2022-09-08 12:39] LABS: Anion Gap 6 (5-15); BUN 17 mg/dL (7-18); BUN/Creat Ratio 20.5 RATIO (10-20); Calcium,Total 9.1 mg/dL (8.5-10.1); Chloride 104 mmol/L (98-107); Cholesterol 228 mg/dL (200); Creatinine, Serum 0.83 mg/dL (0.55-1.02); EST Glomerular Filtration Rate 72 mL/min (>60); Est Glom Filt Rate - Afr Amer 88 mL/min (>60); Glucose 95 mg/dL (74-106); High Density Lipoprotein 65 mg/dL; Potassium 4.3 mmol/L (3.5-5.1); Sodium Level 137 mmol/L (136-145); Triglycerides 163 mg/dL; Very Low Density Lipoprotein 33 mg/dL (5-40); Vitamin D,25 Hydroxy 49.2 ng/mL
== END | disposition home or self-care (01) ==
LOC: MFPLAB 10:24
PROVIDERS: PCP Family Medicine; Referring Provider Family Medicine; Visit Provider Family Medicine
DX: Z00.00 Encounter for general adult medical examination without abnormal findings (principal)
CPT/HCPCS: 36415; 80048; 80061; 82306

== ENCOUNTER 2023-03-15 09:57 | Emergency (ER) | payer OTHER, SELFPAY ==
[2023-03-15 09:58] VITALS: BP 207/95; PULSE 90; RESP 20; TEMP 36.1; O2SAT 97; BMI 33.7
--- NOTE | 2023-03-15 10:38 | EKG12_ITS ---
Test Reason : CP Blood Pressure : / mmHG Vent. Rate : 082 BPM Atrial Rate : 082 BPM P-R Int : 148 ms QRS Dur : 098 ms QT Int : 394 ms P-R-T Axes : 015 -25 028 degrees QTc Int : 460 ms Normal sinus rhythm Nonspecific ST abnormality Abnormal ECG When compared with ECG of 16-JAN-2018 05:45, Nonspecific T wave abnormality no longer evident in Anterior leads Confirmed by ARLYN MCKEON, CHIRAG ([id number]), scientific publications editor PAUL BETANCOURT ([id number]) on 03/20/2023 11:55:19 AM Referred By: PIO Confirmed By:CHIRAG STODDARD MD
--- NOTE | 2023-03-15 10:45 | RAD_ITS ---
STUDY: X-RAY CHEST REASON FOR EXAM: Female, 67 years old. Left-sided chest pain. TECHNIQUE: PA and lateral views of the chest. COMPARISON: Comparison is made with prior study January 15, 2018. FINDINGS: EKG electrodes are seen. The lungs are clear and expanded. There is no demonstrated pleural abnormality. Normal size heart. Normal mediastinum and jayson. Normal visualized pulmonary arteries. Normal visualized aortic arch and descending thoracic aorta. There are diffuse degenerative changes of the visualized thoracic spine. Normal visualized ribs, clavicles, and shoulders. There is no demonstrated abnormality of the visualized soft tissue structures of the upper abdomen. RAD/Chest PA and Lateral IMPRESSION: No acute abnormality is seen. Electronically Signed: Breezy Galan MD at 11:03 EDT ,
[2023-03-15 10:52] LABS: Absolute Lymphocyte Count 1.23 X10^3/uL (0.83-4.51); Absolute Neutrophil Count 5.4 X10^3/uL (2.0-7.7); Basophil# 0.03 X10^3/uL; Basophil% 0.4 % (0-1); Eosinophils% 1.4 % (0-5); Hematocrit 47.8 % (37-47); Hemoglobin 14.9 g/dL (12.0-15.0); Lymphocyte # 1.23 X10^3/ul (0.83-4.51); Lymphocyte % 16.7 % (19-41); Mean Corp Hgb Conc 31.2 g/dL (32-36); Mean Corpuscular Hgb 28.5 pg (27.0-32.0); Mean Corpuscular Volume 91.4 fL (81-99); Monocyte# 0.53 X10^3/uL; Monocyte% 7.2 % (0-10); NRBC Flagged by Analyzer 0 % (0-5); Neutrophil # 5.43 X10^3/uL (2.7-7.7); Neutrophil % 73.9 % (47-70); Platelet Count 317 K/mm3 (150-450); RBC Distribution Width CV 12.4 % (11.6-14.6); RBC Distribution Width SD 41.4 fl (35.1-43.9); Red Blood Count 5.23 M/mm3 (4.2-5.4); White Blood Count 7.4 K/mm3 (4.4-11.0)
[2023-03-15 11:00] VITALS: BP 168/80; PULSE 72; RESP 14; O2SAT 99
[2023-03-15] MEDS: Aspirin 81 MG TAB.CHEW 324 MG PO (11:07)
[2023-03-15 11:10] LABS: Anion Gap 5 (5-15); BUN 16 mg/dL (7-18); Calcium,Total 9.4 mg/dL (8.5-10.1); Chloride 106 mmol/L (98-107); Creatinine, Serum 0.84 mg/dL (0.55-1.02); EST Glomerular Filtration Rate 71 mL/min (>60); Est Glom Filt Rate - Afr Amer 86 mL/min (>60); Estimated Creatinine Clearance 54.58 ml/min; Glucose 118 mg/dL (74-106); Magnesium 2.4 mg/dL (1.6-2.6); Potassium 3.6 mmol/L (3.5-5.1); Sodium Level 137 mmol/L (136-145); Troponin-I HS (w/2H Reflex) 6 pg/mL (3.0-54.0)
[2023-03-15 11:52] LABS: D-Dimer Quantitative (DVT/PE) 0.42 FEU/ug/m (0.27-0.49)
[2023-03-15 12:00] VITALS: BP 155/72; PULSE 67; RESP 22; O2SAT 98
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
[2023-03-15 12:47] LABS: Reflex Troponin-HS? (from REC) Y
[2023-03-15 13:00] VITALS: BP 138/77; PULSE 66; RESP 17; O2SAT 98
[2023-03-15 13:16] LABS: Troponin-I HS 7 pg/mL (3.0-54.0)
[2023-03-15 14:00] VITALS: BP 159/76; PULSE 66; RESP 18; O2SAT 98
[2023-03-15 14:34] VITALS: BP 159/86
== END 2023-03-15 14:37 | disposition home or self-care (01) ==
PROVIDERS: Emergency Provider Emergency Medicine; PCP Family Medicine; Visit Provider Emergency Medicine
DX: R07.89 Other chest pain (principal); F41.9 Anxiety disorder, unspecified; I10 Essential (primary) hypertension
CPT/HCPCS: 71046; 80048; 83735; 84484; 85025; 85379; 93005; 99284; A4216

== ENCOUNTER → 2023-08-15 | Outpatient (CLI) | payer OTHER, SELFPAY ==
--- NOTE | 2023-08-15 10:54 | BD_ITS ---
STUDY: DUAL ENERGY X-RAY ABSORPTIOMETRY / DXA REASON FOR EXAM: Female, 67 years old. [id number] TECHNIQUE: Bone Mineral Density (BMD) measurements of lumbar spine and bilateral hips were obtained. COMPARISON: Comparison is made with prior study dated August 31, 2016. FINDINGS: Lumbar Spine (L1-L4): g/cm2 (0.982) / T-score (-0.6) / Z-score (1.5) Findings are suggestive of normal bone density with a low fracture risk. Left Femur Total: g/cm2 (0.911) / T-score (-0.3) / Z-score (1.2) Left Femoral Neck: g/cm2 (0.749) / T-score (-0.9) / Z-score (0.9) Right Femur Total: g/cm2 (0.853) / T-score (-0.7) / Z-score (0.8) Right Femoral Neck: g/cm2 (0.745) / T-score (-0.9) / Z-score (0.8) The T-Scores on the most recent prior examination were: Lumbar Spine (L1-L4): There has been worsening of bone density since the previous examination. Left Femur Total: which represents a worsening of 2.3%. Right Femur Total: which represents a worsening of 8.1%. BD/Dexa Bone Density Study IMPRESSION: The patient is considered normal as outlined below according to World Víctor Organization (WHO) criteria with a low fracture risk. There has been worsening of bone density since the previous examination. Reference Information: The T-score is the number of standard deviations above or below the standard which is normal for young adults at their peak bone mineral density. The World Health Organization (WHO) interprets the T-scores as follows: Above -1 Normal bone density Between -1 and -2.5 Osteopenia Equal to / or below -2.5 Osteoporosis As a practical clinical guideline, osteopenia may be graded as follows: Mild -1 through -1.5 Moderate -1.6 through -2.0 Severe -2.1 through -2.4 The Z-score is the number of standard deviations above or below age-matched controls. A Z-score of less than -1.5 would be considered abnormal. References: 1. NIH Osteoporosis and Related Bone Diseases www osteo.org 2. International Society for Clinical Densitometry www iscd.org 3. National Osteoporosis Foundation www nof.org Electronically Signed: Breezy Galan MD at 15:07 EDT ,
== END | disposition home or self-care (01) ==
LOC: OPBD 10:46
PROVIDERS: PCP Family Medicine; Referring Provider Family Medicine; Visit Provider Family Medicine
DX: Z00.00 Encounter for general adult medical examination without abnormal findings (principal)
CPT/HCPCS: 77080

== ENCOUNTER → 2023-09-14 | Outpatient (CLI) | payer OTHER, SELFPAY ==
[2023-09-14 13:03] LABS: Anion Gap 6 (5-15); BUN 18 mg/dL (7-18); BUN/Creat Ratio 23.8 RATIO (10-20); Chloride 105 mmol/L (98-107); Cholesterol 234 mg/dL (200); Creatinine, Serum 0.76 mg/dL (0.55-1.02); EST Glomerular Filtration Rate 80 mL/min (>60); Est Glom Filt Rate - Afr Amer 97 mL/min (>60); Glucose 92 mg/dL (74-106); High Density Lipoprotein 65 mg/dL; Potassium 4.2 mmol/L (3.5-5.1); Sodium Level 137 mmol/L (136-145); Triglycerides 134 mg/dL; Very Low Density Lipoprotein 27 mg/dL (5-40)
== END | disposition home or self-care (01) ==
LOC: MFPLAB 09:33
PROVIDERS: PCP Family Medicine; Visit Provider Family Medicine
DX: Z00.00 Encounter for general adult medical examination without abnormal findings (principal)
CPT/HCPCS: 36415; 80048; 80061

== ENCOUNTER → 2024-10-13 | Outpatient (CLI) | payer OTHER, SELFPAY ==
[2024-10-13 11:04] LABS: Anion Gap 6 (5-15); BUN 16 mg/dL (7-18); BUN/Creat Ratio 22.1 RATIO (10-20); Calcium,Total 9.1 mg/dL (8.5-10.1); Chloride 107 mmol/L (98-107); Cholesterol 205 mg/dL (200); Creatinine, Serum 0.72 mg/dL (0.55-1.02); EST Glomerular Filtration Rate 84 mL/min (>60); Est Glom Filt Rate - Afr Amer 102 mL/min (>60); Glucose 94 mg/dL (74-106); High Density Lipoprotein 67 mg/dL; Potassium 4.4 mmol/L (3.5-5.1); Sodium Level 139 mmol/L (136-145); Triglycerides 79 mg/dL; Very Low Density Lipoprotein 16 mg/dL (5-40)
== END | disposition home or self-care (01) ==
LOC: MFPLAB 08:40
PROVIDERS: PCP Family Medicine; Visit Provider Family Medicine
DX: Z00.00 Encounter for general adult medical examination without abnormal findings (principal)
CPT/HCPCS: 36415; 80048; 80061

== ENCOUNTER 2024-11-10 10:14 | Emergency (ER) | payer OTHER, SELFPAY ==
[2024-11-10 10:15] VITALS: BP 215/103; PULSE 97; PULSE 99; RESP 16; RESP 18; TEMP 36.1; O2SAT 96; O2SAT 98
--- NOTE | 2024-11-10 10:32 | EKG12_ITS ---
Test Reason : SOB/PALP Blood Pressure : */* mmHG Vent. Rate : 95 BPM Atrial Rate : 95 BPM P-R Int : 158 ms QRS Dur : 98 ms QT Int : 356 ms P-R-T Axes : 10 -35 23 degrees QTcB Int : 447 ms Normal sinus rhythm Left axis deviation Incomplete right bundle branch block Nonspecific ST abnormality Abnormal ECG Confirmed by ARLYN MCKEON, CHIRAG ([id number]), video news editor PAUL BETANCOURT ([id number]) on 11/13/2024 2:21:33 PM Referred By: KAY/PIO Confirmed By: CHIRAG STODDARD MD
[2024-11-10 10:48] LABS: Absolute Neutrophil Count 4.3 X10^3/uL (2.0-7.7); Basophil# 0.04 X10^3/uL; Basophil% 0.6 % (0-1); Eosinophil# 0.11 X10^3/uL; Eosinophils% 1.8 % (0-5); Hematocrit 47.8 % (37-47); Hemoglobin 15.2 g/dL (12.0-15.0); Lymphocyte % 19.4 % (19-41); Mean Corp Hgb Conc 31.8 g/dL (32-36); Mean Corpuscular Hgb 28.3 pg (27.0-32.0); Mean Corpuscular Volume 88.8 fL (81-99); Mean Platelet Vol. 9.8 fl (6.2-12.0); Monocyte# 0.48 X10^3/uL; Monocyte% 7.8 % (0-10); NRBC Flagged by Analyzer 0 % (0-5); Neutrophil # 4.32 X10^3/uL (2.7-7.7); Neutrophil % 69.9 % (47-70); Platelet Count 292 K/mm3 (150-450); RBC Distribution Width CV 12.7 % (11.6-14.6); Red Blood Count 5.38 M/mm3 (4.2-5.4); White Blood Count 6.2 K/mm3 (4.4-11.0)
--- NOTE | 2024-11-10 11:12 | EX.ED.DYSGE1 ---
HPI History of Present Illness Chief Complaint: Shortness of Breath Detail of Chief Complaint: Bilateral blurred vision, movement and problems with balance Informant: patient and spouse/S.O. Onset/Context/Timing Onset: Hours Context: Sudden Onset Timing: Intermittent and Lasts (30 to 60 seconds) Quality: Vertigo and patient became anxious Location: Patient was standing in the restroom when this occurred. Current Severity: Gone Maximum Severity: Moderate Worsened by: Nothing Relieved by: Not applicable Associated Symptoms Associated Symptoms: Nausea as well Narrative Narrative: Patient is a 68-year-old female. She has a history of vertigo. She also has history of anxiety. Patient was in the restroom. She was looking in the mirror. She then attempted to look at something. She states she had bilateral blurred vision that lasted approximately 30 seconds. She felt unsteady and her eyes were moving for 30 to 60 seconds. When she walked out of the restroom and spoke to her there was no abnormality of her voice or language. She denied headache. She denied double vision, partial loss of vision or loss of vision. She denies ringing or ears or decreased hearing. She denies rhinorrhea, postnasal drainage or congestion. She denies sore throat. She denies trouble with swallowing. She denies chest pain. She presently denies shortness of breath. She denies cough. She denies leg pain, swelling discoloration. She does have a history of hypertension. She reports compliance with her medication. She denies paresthesia, anesthesia or motor weakness of the upper or lower extremities. She presently has no symptoms. Prior similar symptoms: Yes (Vertigo) Recent Illness/Hospitalization: No [facility] Medical History Meniere's disease HTN (hypertension) Vertigo Home Medications ?Medication ?Instructions ?Recorded ?Last Taken ?Type bupropion HCl (smoking deter) 150 150 mg PO DAILY anxiety 01/15/18 01/15/18 08:00 History mg tablet,12 hr sustained-release(smoking deterrent) cetirizine 10 mg tablet (Zyrtec) 10 mg PO DAILY Allergies 01/15/18 01/15/18 08:00 History spironolactone 25 mg tablet 25 mg PO DAILY vertigo 01/15/18 01/15/18 08:00 History amlodipine 5 mg tablet 5 mg PO DAILY #30 tabs 01/16/18 Unknown Rx aspirin 81 mg chewable tablet 81 mg PO DAILY@0800 ##30 01/16/18 Unknown Rx atorvastatin 10 mg tablet 10 mg PO QHS #30 tabs 01/16/18 Unknown Rx hydroxyzine HCl 25 mg tablet 25 mg PO QHS PRN anxiety #7 tabs 03/15/23 Unknown Rx hukmaxyn-kakirqrwq-deddsupe 3.5 drp ophthalmic (eye) 11/10/24 Unknown History mg/mL-10,000 unit/mL-0.1% eye drops Allergy/AdvReac Type Severity Reaction Status Date / Time cefazolin (From [facility]) Allergy Shortness Verified 01/14/22 11:34 of breath codeine Allergy Unknown Verified 01/14/22 11:34 Social History (Updated 11/10/24 @ 11:[address] Carroll Saenz MD) household members: spouse Smoking Status: Never smoker ROS ROS ED Constitutional Constitutional ED: Denies chills, fever(s) or subjective Eyes Eyes: Reports blurry vision bilateral; Denies change in vision or diplopia ENT ENT ED: Denies ear pain, rhinorrhea or sore throat Cardiovascular Cardiovascular: Denies chest pain, orthopnea or palpitations Respiratory/Chest Respiratory/Chest: Denies cough, dyspnea, dyspnea on exertion or orthopnea Gastrointestinal Gastrointestinal: Reports nausea; Denies abdominal pain, diarrhea, melena or vomiting Genitourinary Genitourinary ED: Denies dysuria, hematuria or urinary frequency Musculoskeletal Musculoskeletal: Denies back pain or neck pain Integumentary Denies rash Neurologic Neurologic: Reports other Details: HPI narrative for complete detail ; Denies headache(s), paresthesias or weakness Psychiatric Psychiatric: Reports anxiety; Denies depression Endocrine Endocrinology: Denies cold intolerance Hematologic/Lymphatic Hematologic/Lymphatic: Denies systems reviewed and no addt'l complaints, except as documented EXAM Physical Exam Const Vital Signs: 11/10/24 10:15 11/10/24 10:15 11/10/24 10:28 Temperature 96.9 F L Temperature Source Temporal Pulse Rate 97 99 Respiratory Rate 16 18 Respiratory Effort Normal Blood Pressure 215/103 H 215/103 H Blood Pressure Mean 140 140 Pulse Ox 98 96 Oxygen Delivery Method Room Air Room Air Positive well nourished and well developed General Appearance ED: well developed and NAD; Negative for cyanotic, diaphoretic or pallor HEENT Reports moist mucous membranes HEENT Narrative: Head is atraumatic no cephalic. Ears normal. External auditory canal normal. TMs normal. Nares patent. Posterior pharynx is normal. Uvula is midline. There is no deviation tongue or protrusion. Eyes PERRL and EOMs intact bilaterally Eyes Narrative: There is no nystagmus. There is no visual field cut. General Eye ED: Negative for pale conjunctiva or scleral icterus Neck no lymphadenopathy, supple and no JVD Chest Wall inspection of chest normal Resp normal respiratory effort and clear to auscultation bilaterally Cardio regular rate, regular rhythm, S1 normal heart sound, S2 normal heart sound and no murmurs GI normal to inspection, nondistended, normoactive bowel sounds, non-tender, non-distended and no masses; Negative for hepatosplenomegaly Extremity normal to inspection Extremity Narrative: Radial pulse is 2+ and symmetric and DP pulse is 2+ and symmetric Neuro oriented x3, CN's II-XII intact bilaterally and no sensory deficits noted Neuro Narrative: There is no dysmetria. Romberg with eyes open and close is negative. The eye askew test was negative. DTR 2+ bicep, brachialis, patella and ankle. There is no clonus or Babinski sign noted. Sensorium / Orientation: alert Motor Exam: strength 5/5 throughout Psych mental status grossly normal Skin no rashes or lesions noted, no wounds and skin turgor normal General Skin Exam: Negative for jaundice or pallor MDM MDM MDM Narrative Medical decision making narrative: Suspicious this represents peripheral vertigo. Do not believe this to be a central process. Because of her symptoms EKG was done per protocol. Lab Data Attestation: I reviewed the patient's lab results. Lab results narrative: Electrolyte panel reveals an elevated BUN to creatinine ratio 24:1. Glucose slightly elevated 114 with a normal CO2 anion gap. CBC reveals an elevated H&H of 15.2 and 47.8. Labs: Laboratory Results - last 24 hr 11/10/24 10:40 WBC 6.2 RBC 5.38 Hgb 15.2 H Hct 47.8 H MCV 88.8 MCH 28.3 MCHC 31.8 L RDW Std Deviation 41.0 RDW Coeff of Melissa 12.7 Plt Count 292 MPV 9.8 Immature Gran % (Auto) 0.500 Neut % (Auto) 69.9 Lymph % (Auto) 19.4 Clare % (Auto) 7.8 Eos % (Auto) 1.8 Baso % (Auto) 0.6 Absolute Neuts (auto) 4.3 Absolute Lymphs (auto) 1.20 Nucleated RBC % 0 Sodium 135 L Potassium 4.4 Chloride 103 Carbon Dioxide 26.0 Anion Gap 6 BUN 21 H Creatinine 0.85 Estim Creat Clear Calc 2.31 Est GFR (MDRD) Af Amer 85 Est GFR (MDRD) Non-Af 70 BUN/Creatinine Ratio 24.6 H Glucose 114 H Calcium 9.4 EKG Initial EKG: Attestation: I personally reviewed and interpreted this EKG as follows: Interpretation: Sinus Rhythm (Rate is 95. ID interval is 158 ms. Cures duration 98 ms. QT duration 256 ms. Ethel is to the left. There is an RR prime in V1 and V2. There is ST abnormality predominately in V5. Will need old EKG for comparison.) Treatment and Re-Evaluation :: Patient was observed walking from the restroom to her room. There was no ataxia. There is no unsteadiness. Patient was informed in light of her history of M?ni?re's disease and benign positional vertigo and the fact that the symptoms lasted 30 seconds my opinion this is a peripheral issue and related to her vertigo. Plan is to discharge to home. (1200) Discharge Plan Triage Chief Complaint: Shortness of Breath ED Provider: Carroll Saenz Dx/Rx/DC Orders Clinical Impression: Vertigo, Elevated blood pressure reading with diagnosis of hypertension, History of anxiety Instructions: ED Vertigo, Unspecified Prescriptions: No Action spironolactone 25 MG tablet 25 mg PO DAILY Patient Comments: vertigo bupropion HCl (smoking deter) 150 MG tablet extended release 12 hr 150 mg PO DAILY Patient Comments: anxiety cetirizine [Zyrtec] 10 MG tablet 10 mg PO DAILY Patient Comments: Allergies atorvastatin 10 MG tablet 10 mg PO QHS Qty: 30 0RF amlodipine 5 MG tablet 5 mg PO DAILY Qty: 30 0RF aspirin 81 MG tablet,chewable 81 mg PO DAILY@0800 Qty: 30 0RF hydroxyzine HCl 25 mg tablet 25 mg PO QHS PRN (Reason: anxiety) Qty: 7 0RF neomycin-polymyxin B-dexameth 3.5mg/mL-10,000 unit/mL-0.1 % drops,suspension ophthalmic (eye) Primary Care Provider: Neftali Lowe Referrals: Neftali Lowe MD [Primary Care Provider] - 1-2 Weeks Activity Restrictions/Additional Instructions: Recommend contacting Dr. Neftali Lowe for blood pressure check in 1 to 2 weeks Print Language: Palestinian
[2024-11-10 11:27] LABS: Anion Gap 6 (5-15); BUN 21 mg/dL (7-18); BUN/Creat Ratio 24.6 RATIO (10-20); Calcium,Total 9.4 mg/dL (8.5-10.1); Chloride 103 mmol/L (98-107); Creatinine, Serum 0.85 mg/dL (0.55-1.02); EST Glomerular Filtration Rate 70 mL/min (>60); Est Glom Filt Rate - Afr Amer 85 mL/min (>60); Estimated Creatinine Clearance 2.31 ml/min; Glucose 114 mg/dL (74-106); Potassium 4.4 mmol/L (3.5-5.1); Sodium Level 135 mmol/L (136-145)
[2024-11-10 12:18] VITALS: BP 141/59
[2024-11-10 12:20] VITALS: BP 141/59; PULSE 87; RESP 16; TEMP 36.6; O2SAT 98
[2024-11-10 12:21] VITALS: BP 141/59; BP 147/71; BP 158/89; PULSE 87; PULSE 88; PULSE 94
== END 2024-11-10 12:20 | disposition home or self-care (01) ==
LOC: ED 11:05
PROVIDERS: Emergency Provider Emergency Medicine; PCP Family Medicine; Visit Provider Emergency Medicine
DX: R06.02 Shortness of breath (principal); F41.9 Anxiety disorder, unspecified; R42 Dizziness and giddiness; I10 Essential (primary) hypertension; Z79.899 Other long term (current) drug therapy; Z79.82 Long term (current) use of aspirin
CPT/HCPCS: 80048; 85025; 93005; 99284

== ENCOUNTER 2025-08-08 18:06 | Emergency (ER) | payer BC, SELFPAY ==
[2025-08-08] VITALS (11 sets, daily range): BP systolic 136–211; BP diastolic 63–106; PULSE 70–88; RESP 14–18; TEMP 36.2–36.6; O2SAT 93–100; BMI 32.3
--- NOTE | 2025-08-08 18:55 | RAD_ITS ---
PROCEDURE: CHEST 1 VIEW (PORTABLE) 08/08/2025 REASON FOR EXAM: CHEST PAIN TECHNIQUE: Frontal view of the chest. COMPARISON: Chest x-ray March 15, 2023. Prior report is not available. FINDINGS: Lungs: The lungs are symmetrically expanded. Lung volumes are low. Slightly coarsened reticular lung markings again noted likely due to chronic interstitial thickening. There is no consolidation. There is no peribronchial thickening. There is no pulmonary vascular redistribution. Pleura: No significant pleural effusion seen. There is no evidence of pneumothorax. Mediastinum: There is no mediastinal widening or mediastinal shift. Heart: The cardiac silhouette is not enlarged. Haven: The pulmonary haven are not enlarged or retracted. Osseous: No acute fracture is seen. Mild degenerative changes of the spine and shoulders. RAD/Chest 1 View (Portable) IMPRESSION: Low lung volumes. No acute infiltrate seen. Other findings discussed above. Reading Location: [id number]
--- NOTE | 2025-08-08 18:55 | EKG12_ITS ---
Test Reason : Blood Pressure : */* mmHG Vent. Rate : 79 BPM Atrial Rate : 79 BPM P-R Int : 154 ms QRS Dur : 100 ms QT Int : 386 ms P-R-T Axes : 8 -31 18 degrees QTcB Int : 442 ms Normal sinus rhythm Left axis deviation Incomplete right bundle branch block Nonspecific ST abnormality Abnormal ECG Confirmed by ARLYN MCKEON, CHIRAG ([id number]), supervising film or videotape editor ISAI GARCIA ([id number]) on 08/10/2025 8:31:42 AM Referred By: Confirmed By: CHIRAG STODDARD MD
[2025-08-08 19:17] LABS: Hematocrit 45.0 % (37-47); Hemoglobin 14.7 g/dL (12.0-15.0); Immature Granulocytes Count 0.010 X10^3/uL (0.0-0.0); Mean Corp Hgb Conc 32.7 g/dL (32-36); Mean Corpuscular Volume 87.5 fL (81-99); Mean Platelet Vol. 10.0 fl (6.2-12.0); NRBC Flagged by Analyzer 0 % (0-5); Platelet Count 296 K/mm3 (150-450); RBC Distribution Width CV 12.6 % (11.6-14.6); RBC Distribution Width SD 40.0 fl (35.1-43.9); Red Blood Count 5.14 M/mm3 (4.2-5.4); White Blood Count 7.3 K/mm3 (4.4-11.0)
[2025-08-08 19:18] LABS: Anion Gap 12 (5-15); BUN 16 mg/dL (4-19); BUN/Creat Ratio 21.1 RATIO (10-20); Calcium,Total 9.4 mg/dL (7.6-11.0); Carbon Dioxide 24.1 mmol/L (21.0-32.0); Chloride 103 mmol/L (98-108); Estimated Creatinine Clearance 70.75 ml/min (50-250); Glucose 88 mg/dL (70-99); Potassium 4.0 mmol/L (3.3-5.1); Troponin T High Sensitivity 13 ng/L (<=14)
--- NOTE | 2025-08-08 19:51 | CT_ITS ---
PROCEDURE: CT BRAIN/HEAD WITHOUT CONTRAST 08/08/2025 REASON FOR EXAM: LEFT SIDED PARESTHESIAS TECHNIQUE: Procedure Code: CTBR Modality: CT Procedure: BRAIN/HEAD WITHOUT CONTRAST Coronal and Sagittal reconstruction series were provided. One or more dose reduction techniques were used (e.g., Automated exposure control, adjustment of the mA and/or kV according to patient size, use of iterative reconstruction technique. RADIATION DOSE SUMMARY: CTDlvol: 44.99 mGy DLP: 796.11 mGycm COMPARISON: None. FINDINGS: No acute intracranial hemorrhage, extra-axial collection, mass effect or evidence of acute infarct. Ventricles and subarachnoid spaces are normal in size. Orbital contents are unremarkable. Intact skull base and calvarium. Clear paranasal sinuses and mastoid air cells. CT/Brain/Head without Contrast IMPRESSION: Unremarkable head CT. Reading Location: [facility]
--- OUTSIDE RECORDS SUMMARY | 2025-08-08 20:10 | XMS RPT_ITS | CCD ---
Author Organization [facility] Care Team Providers Care Twisting Operator Name Role Phone Neftali Lowe Primary Care Unavailable Neftali Lowe Attending Unavailable Carroll Saenz Attending Unavailable Neftali Lowe Primary Care Unavailable Allergies Allergy Classification Reported Allergen(s) Allergy Type Date of Onset Reaction(s) Facility (2 sources) ceFAZolin Drug Allergy 2 Shortness of breath [facility] (2 sources) Codeine Drug Allergy 2 Unknown [facility] (1 source) ceFAZolin Drug Allergy 2 [facility] (1 source) Codeine Drug Allergy 2 [facility] Medications Current Medications Medication Drug Class(es) Dates Sig (Normalized) Sig (Original) amLODIPine 5 mg oral tablet (2 sources) Dihydropyridine Calcium [place] Start: 01-16-2018 take 5 mg by mouth once daily Amlodipine Active 5 MG PO DAILY January 16, 2018 1:00am aspirin 81 mg chewable tablet (2 sources) Platelet Aggregation Inhibitor, Nonsteroidal Anti-inflammatory Drug Start: 01-16-2018 take 81 mg by mouth once daily Aspirin Active 81 MG PO DAILY@0800 January 16, 2018 1:00am atorvastatin 10 mg oral tablet (2 sources) HMG-CoA Reductase Inhibitor Start: 01-16-2018 take 10 mg by mouth at bedtime Atorvastatin Active 10 MG PO AT BEDTIME January 16, 2018 1:00am smoking cessation 12 hr buPROPion hydrochloride 150 mg extended release oral tablet (2 sources) Aminoketone Start: 01-15-2018 take 150 mg by mouth once daily Bupropion Hcl (Smoking Deter) Active 150 MG PO DAILY January 15, 2018 1:00am cetirizine hydrochloride 10 mg oral tablet (2 sources) Histamine-1 Receptor Antagonist Start: 01-15-2018 take 1 tablet by mouth once daily Cetirizine (Zyrtec) 10 MG tablet Active 10 MG PO DAILY January 15, 2018 1:00am hydrOXYzine hydrochloride 25 mg oral tablet (2 sources) Antihistamine Start: 03-15-2023 take 25 mg by mouth at bedtime Hydroxyzine Hcl Active 25 MG PO AT BEDTIME 7 March 15, 2023 2:28pm spironolactone 25 mg oral tablet (2 sources) Aldosterone Antagonist Start: 01-15-2018 take 25 mg by mouth once daily Spironolactone Active 25 MG PO DAILY January 15, 2018 1:00am Problems Problem Classification Problem Date Documented Da te Episodic/Chronic Anxiety disorders (2 sources) Anxiety; Translations: [Anxiety disorder, unspecified] 03-15-2023 Chronic E Codes: Fall (2 sources) Fall; Translations: [Unspecified fall, initial encounter] 01-22-2022 Episodic Nonspecific chest pain (2 sources) Atypical chest pain; Translations: [Other chest pain] 03-15-2023 Episodic Other lower respiratory disease (1 source) Shortness of breath; Translations: [Shortness of breath] Onset: 12-01-2024 Episodic Sprains and strains (2 sources) Sprain of knee; Translations: [Sprain of unspecified site of unspecified knee, initial encounter] 01-22-2022 Episodic Results Test Name Value Interpretation Reference Range Facility 12 Lead EKGon 11-10-2024 12 Lead EKG [facility] [address] [place] [address] 12 Lead EKG 11/10/24 1021 MR#: [id number] Acct: [id number] Name: CAN MALLORY Rep #: [id number] : 1955 68 From: Onesimo Stoddard MD Attending Dr: Status: DEP ER Ordering Dr: Carroll Saenz MD Date: 11/10/24 Location: ED Sex: F C Admitted: Test Reason : SOB/PALP Blood Pressure : */* mmHG Vent. Rate : 95 BPM Atrial Rate : 95 BPM P-R Int : 158 ms QRS Dur : 98 ms QT Int : 356 ms P-R-T Axes : 10 -35 23 degrees QTcB Int : 447 ms Normal sinus rhythm Left axis deviation Incomplete right bundle branch block Nonspecific ST abnormality Abnormal ECG Confirmed by ONESIMO STODDARD MD ([id number]), material expeditor PAUL BETANCOURT ([id number]) on 11/13/2024 2:21:33 PM Referred By: KAY/PIO Confirmed By: ONESIMO STODDARD MD 11/13/24 1421 Date Onesimo Stoddard MD CC: Dr. Neftali Lowe MD; Dr. Carroll Saenz MD Signed Normal [facility] Basic Metabolic Profile (BMP )on 11-10-2024 BUN/CRE 24.6 RATIO High 10-20 [facility] Comment on above: Performed By: #### L 500.2500, L100.0100 #### [facility] [address] [place], [address] CA,Total 9.4 mg/dL Normal 8.5-10.1 [facility] Comment on above: Performed By: #### L 500.2500, L100.0100 #### [facility] [address] [place], [address] Chloride [Moles/Vol] 103 mmol/L Normal 98-107 [facility] Comment on above: Performed By: #### L 500.2500, L100.0100 #### [facility] [address] [place], [address] CO2 [Moles/Vol] 26.0 mmol/L Normal 21.0-32.0 [facility] Comment on above: Performed By: #### L 500.2500, L100.0100 #### [facility] [address] [place], [address] Creatinine [Mass/Vol] 0.85 mg/dL Normal 0.55-1.02 [facility] Comment on above: Result Comment: The validity of the calculated GFR GFRAA in patients over 70 years has not been determined. Clinical correlation is essential. Performed By: #### L 500.2500, L100.0100 #### [facility] [address] [place], [address] ECRCL 2.31 ml/min Normal [facility] Comment on above: Performed By: #### L 500.2500, L100.0100 #### [facility] [address] [place], [address] EST GFR - AA 85 mL/min Normal >60 [facility] Comment on above: Result Comment: Afri can Greek GFR Calc Performed By: #### L 500.2500, L100.0100 #### [facility] [address] [place], [address] GAP 6 Normal 5-15 [facility] Comment on above: Performed By: #### L 500.2500, L100.0100 #### [facility] [address] [place], [address] GFR/1.73 sq M.predicted among non-blacks MDRD (S/P/Bld) [Vol rate/Area] 70 mL/min/{1.73_m2} Normal >60 [facility] Comment on above: Result Comment: Non- GFR Calc Performed By: #### L 500.2500, L100.0100 #### [facility] [address] [place], [address] Glucose [Mass/Vol] 114 mg/dL High 74-106 [facility] Comment on above: Result Comment: Fast ing Glucose result from 100 to 125 mg/dL suggests IMPAIRED HOMEOSTASIS per A.D.A. criteria. Performed By: #### L 500.2500, L100.0100 #### [facility] [address] [place], [address] Potassium [Moles/Vol] 4.4 mmol/L Normal 3.5-5.1 [facility] Comment on above: Result Comment: Mode rate Hemolysis, Result may be falsely increased. Performed By: #### L 500.2500, L100.0100 #### [facility] [address] [place], [address] Sodium [Moles/Vol] 135 mmol/L Low 136-145 [facility] Comment on above: Performed By: #### L 500.2500, L100.0100 #### [facility] [address] [place], [address] Urea nitrogen [Mass/Vol] 21 mg/dL High 7-18 [facility] Comment on above: Performed By: #### L 500.2500, L100.0100 #### [facility] [address] [place], [address] CBC W/Diff, Automatedon 12-12 22-2023 Absolute Lymph 1.20 X10 3/uL Normal 0.83-4.51 [facility] Comment on above: Performed By: #### L 500.2500, L100.0100 #### [facility] [address] [place], [address] Absolute Neut 4.3 X10 3/uL Normal 2.0-7.7 [facility] Comment on above: Performed By: #### L 500.2500, L100.0100 #### [facility] [address] [place], [address] Basophils/100 WBC (Bld) 0.6 % Normal 0-1 [facility] Comment on above: Performed By: #### L 500.2500, L100.0100 #### [facility] [address] [place], [address] Eosinophils/100 WBC (Bld) 1.8 % Normal 0-5 [facility] Comment on above: Performed By: #### L 500.2500, L100.0100 #### [facility] [address] [place], [address] Erythrocyte distribution width (RBC) [Ratio] 12.7 % Normal 11.6-14.6 [facility] Comment on above: Performed By: #### L 500.2500, L100.0100 #### [facility] [address] [place], [address] Hematocrit (Bld) [Volume fraction] 47.8 % High 37-47 [facility] Comment on above: Performed By: #### L 500.2500, L100.0100 #### [facility] [address] [place], [address] Hemoglobin (Bld) [Mass/Vol] 15.2 g/dL High 12.0-15.0 [facility] Comment on above: Performed By: #### L 500.2500, L100.0100 #### [facility] [address] [place], [address] IG% 0.500 Normal 0.0-0.9 [facility] Comment on above: Result Comment: IG% - Immature Granulocytes (promyelocytes, myelocytes and metamyelocytes) > 1% indicates that a LEFT SHIFT is Present. Performed By: #### L 500.2500, L100.0100 #### [facility] [address] [place], [address] Lymphocytes/100 WBC (Bld) 19.4 % Normal 19-41 [facility] Comment on above: Performed By: #### L 500.2500, L100.0100 #### [facility] [address] [place], [address] MCH (RBC) [Entitic mass] 28.3 pg Normal 27.0-32.0 [facility] Comment on above: Performed By: #### L 500.2500, L100.0100 #### [facility] [address] [place], [address] MCHC (RBC) [Mass/Vol] 31.8 g/dL Low 32-36 [facility] Comment on above: Performed By: #### L 500.2500, L100.0100 #### [facility] [address] [place], [address] MCV (RBC) [Entitic vol] 88.8 fL Normal 81-99 [facility] Comment on above: Performed By: #### L 500.2500, L100.0100 #### [facility] [address] [place], [address] Monocytes/100 WBC (Bld) 7.8 % Normal 0-10 [facility] Comment on above: Performed By: #### L 500.2500, L100.0100 #### [facility] [address] [place], [address] Neutrophils/100 WBC (Bld) 69.9 % Normal 47-70 [facility] Comment on above: Performed By: #### L 500.2500, L100.0100 #### [facility] [address] [place], [address] Nucleated RBC (Bld) [#/Vol] 0 10*3/uL Normal 0-5 [facility] Comment on above: Performed By: #### L 500.2500, L100.0100 #### [facility] [address] [place], [address] Platelet mean volume (Bld) [Entitic vol] 9.8 fL Normal 6.2-12.0 [facility] Comment on above: Performed By: #### L 500.2500, L100.0100 #### [facility] [address] [place], [address] Platelets (Bld) [#/Vol] 292 10*3/uL Normal 150-450 [facility] Comment on above: Performed By: #### L 500.2500, L100.0100 #### [facility] [address] [place], [address] RBC (Bld) [#/Vol] 5.38 10*6/uL Normal 4.2-5.[address] [facility] Comment on above: Performed By: #### L 500.2500, L100.0100 #### [facility] [address] [place], [address] RDW SD 41.0 fl Normal 35.1-43.9 [facility] Comment on above: Performed By: #### L 500.2500, L100.0100 #### [facility] [address] [place], [address] WBC (Bld) [#/Vol] 6.2 10*3/uL Normal 4.4-11.0 [facility] Comment on above: Performed By: #### L 500.2500, L100.0100 #### [facility] [address] [place], [address] Emergency Department Summary on 11-10-2024 Emergency Department Summary [facility] Medical Records Department [address] [place] [address] Emergency Department Summary 11/10/24 MR#: [id number] Acct: [id number] Name: CAN MALLORY Rep #: [id number] : 1955 68 From: Carroll Saenz MD PCP: Dr. Neftali Lowe MD Status:REG ER Location: ED HPI History of Present Illness Chief Complaint: Shortness of Breath Detail of Chief Complaint: Bilateral blurred vision, movement and problems with balance Informant: patient and spouse/S.O. Onset/Context/Gianni ng Onset: Hours Context: Sudden Onset Timing: Intermittent and Lasts (30 to 60 seconds) Quality: Vertigo and patient became anxious Location: Patient was standing in the restroom when this occurred. Current Severity: Gone Maximum Severity: Moderate Worsened by: Nothing Relieved by: Not applicable Associated Symptoms Associated Symptoms: Nausea as well Narrative Narrative: Patient is a 68-year-old female. She has a history of vertigo. She also has history of anxiety. Patient was in the restroom. She was looking in the mirror. She then attempted to look at something. She states she had bilateral blurred vision that lasted approximately 30 seconds. She felt unsteady and her eyes were moving for 30 to 60 seconds. When she walked out of the restroom and spoke to her there was no abnormality of her voice or language. She denied headache. She denied double vision, partial loss of vision or loss of vision. She denies ringing or ears or decreased hearing. She denies rhinorrhea, postnasal drainage or congestion. She denies sore throat. She denies trouble with swallowing. She denies chest pain. She presently denies shortness of breath. She denies cough. She denies leg pain, swelling discoloration. She does have a history of hypertension. She reports compliance with her medication. She denies paresthesia, anesthesia or motor weakness of the upper or lower extremities. She presently has no symptoms. Prior similar symptoms: Yes (Vertigo) Recent Illness/Hospitaliz ation: No [facility] Medical History Meniere's disease HTN (hypertension) Vertigo Home Medications ???Medication ???Instructions ???Recorded ???Last Taken ???Type bupropion HCl (smoking deter) 150 150 mg PO DAILY anxiety 01/15/18 01/15/18 08:00 History mg tablet,12 hr sustained-release( smoking deterrent) cetirizine 10 mg tablet (Zyrtec) 10 mg PO DAILY Allergies 01/15/18 01/15/18 08:00 History spironolactone 25 mg tablet 25 mg PO DAILY vertigo 01/15/18 01/15/18 08:00 History amlodipine 5 mg tablet 5 mg PO DAILY #30 tabs 01/16/18 Unknown Rx aspirin 81 mg chewable tablet 81 mg PO DAILY@0800 ##30 01/16/18 Unknown Rx atorvastatin 10 mg tablet 10 mg PO QHS #30 tabs 01/16/18 Unknown Rx hydroxyzine HCl 25 mg tablet 25 mg PO QHS PRN anxiety #7 tabs 03/15/23 Unknown Rx neomycin-polymyxin -dexameth 3.5 drp ophthalmic (eye) 11/10/24 Unknown History mg/mL-10,000 unit/mL-0.1% eye drops Allergy/AdvReac Type Severity Reaction Status Date / Time cefazolin (From Anc) Allergy Shortness Verified 01/14/22 11:34 of breath codeine Allergy Unknown Verified 01/14/22 11:34 Social History (Updated 11/10/24 @ 11:[address] Carroll Saenz MD) household members: spouse Smoking Status: Never smoker ROS ROS ED Constitutional Constitutional ED: Denies chills, fever(s) or subjective Eyes Eyes: Reports blurry vision bilateral; Denies change in vision or diplopia ENT ENT ED: Denies ear pain, rhinorrhea or sore throat Cardiovascular Cardiovascular: Denies chest pain, orthopnea or palpitations Respiratory/Chest Respiratory/Chest: Denies cough, dyspnea, dyspnea on exertion or orthopnea Gastrointestinal Gastrointestinal: Reports nausea; Denies abdominal pain, diarrhea, melena or vomiting Genitourinary Genitourinary ED: Denies dysuria, hematuria or urinary frequency Musculoskeletal Musculoskeletal: Denies back pain or neck pain Integumentary Denies rash Neurologic Neurologic: Reports other Details: HPI narrative for complete detail ; Denies headache(s), paresthesias or weakness Psychiatric Psychiatric: Reports anxiety; Denies depression Endocrine Endocrinology: Denies cold intolerance Hematologic/Lympha tic Hematologic/Lympha tic: Denies systems reviewed and no addt'l complaints, except as documented EXAM Physical Exam Const Vital Signs: 11/10/24 10:15 11/10/24 10:15 11/10/24 10:28 Temperature 96.9 F L Temperature Source Temporal Pulse Rate 97 99 Respiratory Rate 16 18 Respiratory Effort Normal Blood Pressure 215/103 H 215/103 H Blood Pressure Mean 140 140 Pulse Ox 98 96 Oxygen Delivery Method Room Air Room Air Positive well nourished and well developed General Appearance ED: well developed and (more content not included)... Normal [facility] Basic Metabolic Profile (BMP )on 10-13-2024 BUN/CRE 22.1 RATIO High 09-07 [facility] Comment on above: Performed By: #### L 500.4100, L500.2500 #### [facility] [address] [place], [address] CA,Total 9.1 mg/dL Normal 8.5-10.1 [facility] Comment on above: Performed By: #### L 500.4100, L500.2500 #### [facility] [address] [place], [address] Chloride [Moles/Vol] 107 mmol/L Normal 98-107 [facility] Comment on above: Performed By: #### L 500.4100, L500.2500 #### [facility] [address] [place], [address] CO2 [Moles/Vol] 26.0 mmol/L Normal 21.0-32.0 [facility] Comment on above: Performed By: #### L 500.4100, L500.2500 #### [facility] [address] [place], [address] Creatinine [Mass/Vol] 0.72 mg/dL Normal 0.55-1.02 [facility] Comment on above: Result Comment: The validity of the calculated GFR GFRAA in patients over 70 years has not been determined. Clinical correlation is essential. Performed By: #### L 500.4100, L500.2500 #### [facility] [address] [place], [address] EST GFR - AA 102 mL/min Normal >60 [facility] Comment on above: Result Comment: Afri can Greek GFR Calc Performed By: #### L 500.4100, L500.2500 #### [facility] [address] [place], [address] GAP 6 Normal 5-15 [facility] Comment on above: Performed By: #### L 500.4100, L500.2500 #### [facility] [address] [place], [address] GFR/1.73 sq M.predicted among non-blacks MDRD (S/P/Bld) [Vol rate/Area] 84 mL/min/{1.73_m2} Normal >60 [facility] Comment on above: Result Comment: Non- GFR Calc Performed By: #### L 500.4100, L500.2500 #### [facility] [address] [place], [address] Glucose [Mass/Vol] 94 mg/dL Normal 74-106 [facility] Comment on above: Performed By: #### L 500.4100, L500.2500 #### [facility] [address] [place], [address] Potassium [Moles/Vol] 4.4 mmol/L Normal 3.5-5.1 [facility] Comment on above: Performed By: #### L 500.4100, L500.2500 #### [facility] [address] [place], [address] Sodium [Moles/Vol] 139 mmol/L Normal 136-145 [facility] Comment on above: Performed By: #### L 500.4100, L500.2500 #### [facility] [address] [place], [address] Urea nitrogen [Mass/Vol] 16 mg/dL Normal 7-18 [facility] Comment on above: Performed By: #### L 500.4100, L500.2500 #### [facility] [address] [place], [address] Lipid Profileon 10-13-2024 Cholesterol [Mass/Vol] 205 mg/dL High 200 [facility] Comment on above: Result Comment: <200 mg/dL Desirable 200-240 mg/dL Borderline >240 mg/dL High Risk Performed By: #### L 500.4100, L500.2500 #### [facility] [address] [place], [address] Cholesterol in HDL [Mass/Vol] 67 mg/dL Normal [facility] Comment on above: Result Comment: The drugs N-Acetylcysteine and Metamizole may falsely depress this assay. Reference Range HDL <40 mg/dL Low HDL Cholesterol HDL >or= 60 mg/dL High HDL Cholesterol Performed By: #### L 500.4100, L500.2500 #### [facility] [address] [place], [address] Cholesterol in LDL [Mass/Vol] 122 mg/dL Normal 0-130 [facility] Comment on above: Performed By: #### L 500.4100, L500.2500 #### [facility] [address] [place], [address] Cholesterol in VLDL [Mass/Vol] 16 mg/dL Normal 5-40 [facility] Comment on above: Performed By: #### L 500.4100, L500.2500 #### [facility] [address] [place], [address] Triglyceride [Mass/Vol] 79 mg/dL Normal [facility] Comment on above: Result Comment: The drugs N-Acetylcysteine and Metamizole may falsely depress this assay. Serum Triglycerides Reference Interval Normal <150 mg/dL Borderline high 150 - 199 mg/dL High 200 - 499 mg/dL Very High > or = 500 mg/dL Performed By: #### L 500.4100, L500.2500 #### [facility] [address] [place], [address] Basophil percentageOrdered B y: Neftali Lowe on 09-14-2023 Chloride [Moles/Vol] 105 mmol/L 98-107 [facility] Cholesterol [Mass/Vol] 234 mg/dL <200 [facility] Comment on above: <200 mg/dL Desirable 200-240 mg/dL Borderline >240 mg/dL High Risk Glucose [Mass/Vol] 92 mg/dL 74-106 [facility] Potassium [Moles/Vol] 4.2 mmol/L 3.5-5.1 [facility] Comment on above: Slight Hemolysis, Re sult may be falsely increased. Sodium [Moles/Vol] 137 mmol/L 136-145 [facility] Triglyceride [Mass/Vol] 134 mg/dL <199 [facility] Comment on above: The drugs N-Acetylcy steine and Metamizole may falsely depress this assay.Serum Triglycerides Reference Interval Normal <150 mg/dL Borderline high 150 - 199 mg/dL High 200 - 499 mg/dL Very High > or = 500 mg/dL Laboratory - Chemistry and C hemistry - challengeOrdered By: Neftali Lowe on 09-14-2023 CO2 [Moles/Vol] 26.0 mmol/L 21.0-32.0 [facility] Urea nitrogen/Creatinine [Mass ratio] 23.8 mg/mg 10-20 [facility] No Panel InformationOrdered By: Neftali Lowe on 09-14-2023 Estimated GFR (MDRD) Amer 97 mL/min >60 [facility] Comment on above: GFR Calc Estimated GFR (MDRD) Non-Af Amer 80 mL/min >60 [facility] Comment on above: Non- GFR Calc Serum or plasma calcium bridger urement (mass/volume)Ordered By: Neftali Lowe on 09-14-2023 Calcium [Mass/Vol] 9.0 mg/dL 8.5-10.1 [facility] Serum or plasma cholesterol in HDL measurement (mass/volume)Ordered By: Neftali Lowe on 09-14-2023 Cholesterol in HDL [Mass/Vol] 65 mg/dL >40 [facility] Comment on above: The drugs N-Acetylcy steine and Metamizole may falsely depress this assay. Reference Range HDL <40 mg/dL Low HDL Cholesterol HDL >or= 60 mg/dL High HDL Cholesterol Serum or plasma cholesterol in VLDL measurement (mass/volume)Ordered By: Neftali Lowe on 09-14-2023 Cholesterol in VLDL [Mass/Vol] 27 mg/dL 5-40 [facility] Serum or plasma creatinine m easurement (mass/volume)Ordered By: Neftali Lowe on 09-14-2023 Creatinine [Mass/Vol] 0.76 mg/dL 0.55-1.02 [facility] Comment on above: The validity of the calculated GFR & GFRAA in patients over 70 years has not been determined. Clinical correlation is essential. Serum or plasma low density lipoprotein (LDL) cholesterol measurement (mass/volume)Ordered By: Neftali Lowe on 09-14-2023 Cholesterol in LDL [Mass/Vol] 142 mg/dL 0-130 [facility] Serum or plasma urea nitroge n measurement (mass/volume)Ordered By: Neftali Lowe on 09-14-2023 Urea nitrogen [Mass/Vol] 18 mg/dL 7-18 [facility] Thin prep Papanicolaou smear with manual screeningOrdered By: Neftali Lowe on 09-14-2023 Thin prep Papanicolaou smear with manual screening 6 5-15 [facility] Absolute lymphocyte countOrd ered By: Dr. Cruz on 03-15-2023 Lymphocytes Auto (Unsp spec) [#/Vol] 1.23 10*3/uL 0.83-4.51 [facility] Basophil percentageOrdered B y: Dr. Cruz on 03-15-2023 Basophils/100 WBC (Bld) 0.4 % 0-1 [facility] Chloride [Moles/Vol] 106 mmol/L 98-107 [facility] Eosinophils/100 WBC (Bld) 1.4 % 0-5 [facility] Glucose [Mass/Vol] 118 mg/dL 74-106 [facility] Comment on above: Fasting Glucose resu lt from 100 to 125 mg/dL suggests IMPAIRED HOMEOSTASIS per A.D.A. criteria. Neutrophils (Bld) [#/Vol] 5.4 10*3/uL 2.0-7.7 [facility] Neutrophils/100 WBC (Bld) 73.9 % 47-70 [facility] Potassium [Moles/Vol] 3.6 mmol/L 3.5-5.1 [facility] Sodium [Moles/Vol] 137 mmol/L 136-145 [facility] WBC (Bld) [#/Vol] 7.4 10*3/uL 4.4-11.0 [facility] Blood erythrocytes count (nu mber/volume)Ordered By: Dr. Cruz on 03-15-2023 RBC (Bld) [#/Vol] 5.23 10*6/uL 4.2-5.[address] [facility] Blood hemoglobin measurement (mass/volume)Ordered By: Dr. Cruz on 03-15-2023 Hemoglobin (Bld) [Mass/Vol] 14.9 g/dL 12.0-15.0 [facility] Blood lymphocytes/100 leukoc ytesOrdered By: Dr. Cruz on 03-15-2023 Lymphocytes/100 WBC (Bld) 16.7 % 19-41 [facility] Blood monocytes/100 leukocyt esOrdered By: Dr. Cruz on 03-15-2023 Monocytes/100 WBC (Bld) 7.2 % 0-10 [facility] Blood platelet mean volumeOr dered By: Dr. Cruz on 03-15-2023 Platelet mean volume (Bld) [Entitic vol] 10.0 fL 6.2-12.0 [facility] Determination of erythrocyte mean corpuscular volume (MCV)Ordered By: Dr. Cruz on 03-15-2023 MCV (RBC) [Entitic vol] 91.4 fL 81-99 [facility] Hematocrit Auto (Bld) [Volum e fraction]Ordered By: Dr. Cruz on 03-15-2023 Hematocrit (Bld) [Volume fraction] 47.8 % 37-47 [facility] Laboratory - Chemistry and C hemistry - challengeOrdered By: Dr. Cruz on 03-15-2023 CO2 [Moles/Vol] 26.0 mmol/L 21.0-32.0 [facility] Magnesium [Mass/Vol] 2.4 mg/dL 1.6-2.6 [facility] Urea nitrogen/Creatinine [Mass ratio] 19.0 mg/mg 10-20 [facility] Laboratory - Hematology and Cell countsOrdered By: Dr. Cruz on 03-15-2023 Erythrocyte distribution width (RBC) [Entitic vol] 41.4 fL 35.1-43.9 [facility] Erythrocyte distribution width (RBC) [Ratio] 12.4 % 11.6-14.6 [facility] Immature granulocytes/100 WBC (Bld) 0.400 % 0.0-0.9 [facility] Comment on above: IG% - Immature Granu locytes (promyelocytes, myelocytes and metamyelocytes) > 1% indicates that a LEFT SHIFT is Present. MCH (RBC) [Entitic mass] 28.5 pg 27.0-32.0 [facility] Nucleated RBC/100 WBC (Bld) [Ratio] 0 % 0-5 [facility] MCHC Auto (RBC) [Mass/Vol]Or dered By: Dr. Cruz on 03-15-2023 MCHC (RBC) [Mass/Vol] 31.2 g/dL 32-36 [facility] No Panel InformationOrdered By: Dr. Cruz on 03-15-2023 Troponin I High Sensitivity 7 pg/mL 3.0-54.0 [facility] Comment on above: Please Note: [place] t Units and Gender Specific Reference Ranges. For more information see Policy Stat Procedure [place] High Sensitivity Troponin (TNIH) and attachments. D-Dimer Quantitative (PE/DVT) 0.42 FEU/ug/m 0.27-0.49 [facility] Comment on above: NORMAL D-Dimer level (<0.50) indicates no DVT or PE. Estimated Creatinine Clearance Calc 54.58 ml/min [facility] Estimated GFR (MDRD) Amer 86 mL/min >60 [facility] Comment on above: GFR Calc Estimated GFR (MDRD) Non-Af Amer 71 mL/min >60 [facility] Comment on above: Non- GFR Calc Platelets bldOrdered By: Dr. Cruz on 03-15-2023 Platelets (Bld) [#/Vol] 317 10*3/uL 150-450 [facility] Serum or plasma calcium bridger urement (mass/volume)Ordered By: Dr. Cruz on 03-15-2023 Calcium [Mass/Vol] 9.4 mg/dL 8.5-10.1 [facility] Serum or plasma creatinine m easurement (mass/volume)Ordered By: Dr. Cruz on 03-15-2023 Creatinine [Mass/Vol] 0.84 mg/dL 0.55-1.02 [facility] Comment on above: The validity of the calculated GFR & GFRAA in patients over 70 years has not been determined. Clinical correlation is essential. Serum or plasma urea nitroge n measurement (mass/volume)Ordered By: Dr. Cruz on 03-15-2023 Urea nitrogen [Mass/Vol] 16 mg/dL 7-18 [facility] Thin prep Papanicolaou smear with manual screeningOrdered By: Dr. Cruz on 03-15-2023 Thin prep Papanicolaou smear with manual screening 5 5-15 [facility] CNPTOUTREACHon 12-19-2019 [facility]reach (FAMPWS) -------- CAN MALLORY ([id number]) 1955 F Date Time Provider Department 12/19/19 ANGELIA KENDALL) CAROL During your visit today, we recorded the following information about you: Angelia Kendall MA 12/19/2019 2:57 PM Signed [facility] JACKIE Provider Action/FYI: Patients charted reviewed in teamlet with Dr. Montgomery Last patient activity 05-05-16 Last PCP visit 04-19-15 Based on this information has been removed as PCP. Patient identified by name and . Angelia Kendall MA Allergies As of Date: 12/19/2019 Noted Allergy Reaction ANCEF (CEFAZOLIN SODIUM) 09/05/2007 12 - Shortness of Breath HYDROCODONE-ACETAM INOPHEN 12/08/2010 11 - Vomiting Comments: told by hand surgeon not to take any pain meds in this class Z PACK (AZITHROMYCIN) 01/03/2011 5 - Intolerance Comments: cigarette smell Date Reviewed: 04/19/2015 Reviewed by: Karo Tapia Ma - Fully Assessed Reason for Visit: PHMA/Care Gap Outreach [[id number]] Prescriptions as of 12/19/2019 Sig: FAMCICLOVIR 500 MG TABLET Take 3 pills one time at the * LYSINE 1,000 MG TABLET Take 1,000 mg by mouth once d* SPIRONOLACTONE 25 MG TABLET Take 25 mg by mouth every oth* POTASSIUM GLUCONATE 500 MG (8* Take by mouth once daily. VITAMIN E 400 UNIT TABLET Take 1 capsule by mouth once * CHOLECALCIFEROL (VITAMIN D3) * Take 1,000 Units by mouth onc* ASCORBIC ACID (VITAMIN C) 1,0* Take 1 tablet by mouth once d* MECLIZINE 12.5 MG TABLET Take 1 tablet by mouth every * PROMETHAZINE 25 MG TABLET Take 1 tablet by mouth every * COMPOUNDED PRESCRIPTION otc allergy medication MULTIVITAMIN TABLET Take one(1) tablet daily. Problem List As Of Date 12/19/2019 Noted Resolved HYPERLIPIDEMIA NEC/NOS [E78.5] 02/24/2008 DEPRESSIVE DISORDER NEC [F32.9] 02/08/2009 Vertigo [R42] 05/13/2014 Tinnitus [H93.19] 05/13/2014 Hearing loss [H91.90] 05/13/2014 Meniere's disease [H81.09] 04/19/2015 Encounter Status:Closed by ANGELIA KENDALL on 12/19/19 [facility] PROGRESSon 12-19-2019 PROGRESS HNO ID: [id number] Author: Angelia Michele (Narinder) Faiza Service: ? Author Type: Certified Juvenile Probation Officer Type: Progress Notes Filed: 12/19/2019 2:57 PM Note Text: [facility] QUICKNOTE Provider Action/FYI: Patients charted reviewed in teamlet with Dr. Montgomery Last patient activity 05-05-16 Last PCP visit 04-19-15 Based on this information has been removed as PCP. Patient identified by name and . Angelia Kendall MA [facility] Vital Signs Date Time Vital Sign Value Performing Clinician Faci lity 08-15-2023 10:52-0400 Body height 162.56 cm [facility] 03-15-2023 14:34-0400 Diastolic blood pressure 86 mm[Hg] [facility] 03-15-2023 14:34-0400 Systolic blood pressure 159 mm[Hg] [facility] 03-15-2023 14:00-0400 Heart rate 66 /min [facility] 03-15-2023 14:00-0400 Respiratory rate 18 /min [facility] 03-15-2023 14:00-0400 SaO2% (BldA) [Mass fraction] 98 % [facility] 03-15-2023 09:58-0400 Body height 162.56 cm [facility] 03-15-2023 09:58-0400 Body mass index (BMI) [Ratio] 33.7 kg/m2 [facility] 03-15-2023 09:58-0400 Body temperature 97 [degF] [facility] 03-15-2023 09:58-0400 Body weight 89.08 kg [facility] Hospital Encounters Encounter Date Encounter Type Care Provider Facility Start: 11-11-2024 Encounter for genera l adult medical examination without abnormal findings Neftali Chrissy [facility] Start: 11-10-2024 End: 11-10-2024 Emergency department patient visit Carroll Saenz Facility:[facility] Start: 10-13-2024 End: 10[facility] Start: 09-14-2023 End: 09-14-2023 ambulatory [facility] Work Phone: Start: 09-14-2023 End: 09-14-2023 Patient encounter procedure [facility]Laboratory, Nadine Flores Start: 08-15-2023 End: 08-15-2023 Patient encounter procedure [facility]Outpatient Bone Densitometry Work Phone: Start: 03-15-2023 End: 03-15-2023 Emergency department patient visit [facility] Procedures Date Procedure Procedure Detail Performing Clinician Start: 08-15-2023 Dual energy X-ray absorptiometry Start: 03-15-2023 Plain chest X-ray Plan of Treatment Date Care Activity Detail Author Start: 03-15-2023 [facility] Patient Education ED Chest Pain, Uncertain Cause [facility] Work Phone: Patient referral [facility] Work Phone: Payers Date Payer Category Payer Self-pay [id number] 2024 Unknown [id number] Unknown [id number] Unknown [id number] Social History Date Type Detail Facility Start: [facility] Start: 1955 Sex Assigned At Female [facility] Mental Status Date Assessment Result Facility 03-15-2023 Cognitive function Voice/Name [facility] Work Phone: Evaluation note Note Date & Type Note Facility Evaluation note No assessment information availa ble [facility] Work Phone: Hospital Discharge instructions Note Date & Type Note Facility Hospital Discharge instructions Additional Instructions Please call Dr. Lowe's office today to schedule an appointment to be seen tomorrow. We will discuss further medication management and work-up outpatient. Return to the ER if you have progression or worsening of your symptoms. At this time you do not have findings consistent with acute coronary syndrome, heart attack, pneumonia, collapsed lung or blood clots. [facility] Work Phone: Summary Purpose Family History No Family History Records Found Relationship Condition Age at Onset Recorded Date/T leo Unknown Family History?No pe rtinent history Unknown January 15, 2018 11:22pm Family History?No pe rtinent history Unknown January 15, 2018 11:22pm Advance Directives No Advanced Directives Records Found Advance Directive Response Recorded Date/ Time Living Will No March 15, 2023 10:18am Power of Warehouse Manager No March 15 10:18am Chief Complaint and Reason for Visit Chief Complaint CHEST PAIN Chief Complaint ROUTINE [employer]NANCE Additional Source Comments INFORMATION SOURCE (unrecogn ized section and content) DATE CREATED AUTHOR 12/19/2019 [facility] DATE CREATED AUTHOR AUTHOR'S ORGANIZ ATION 12/04/2024 [facility] Care Teams (unrecognized sec tion and content) Team Status: Active Member Role Status Dates Dr. Neftali Lowe MD Family Provider Active Dr. Neftali Lowe MD Primary Care Provider Active Team Status: Inactive Member Role Status Dates Dr. Neftali Lowe MD Primary Care Provider Active Dr. Tiffanie Cruz DO Emergency Provider Active Team Status: Inactive Member Role Status Dates Dr. Neftali Lowe MD Primary Care Provi ethan, Attending Provider, Referring Provider Active Team Status: Inactive Member Role Status Dates Dr. Neftali Lowe MD Primary Care Provider, Attending Provider Active Goals (unrecognized section and content) Goals may be documented in a n alternate sectionGoals may be documented in an alternate section FOR RECORDS PERTAINING TO PATIENTS WHO ARE OR HAVE BEEN ENROLLED IN A CHEMICAL DEPENDENCY/SUBSTANCEABUSE PROGRAM, SOME INFORMATION MAY BE OMITTED. This clinical summary was aggregated from multiple sources. Caution should be exercised in using it in the provision of clinical care. This summary normalizes information from multiple sources, and as a consequence, information in this document may materially change the coding, format and clinical context of patient data. In addition, data may be omitted in some cases. CLINICAL DECISIONS SHOULD BE BASED ON THE PRIMARY CLINICAL RECORDS. [facility], [facility]. provides no warranty or guarantee of the accuracy or completeness of information in this document.
[2025-08-08 21:01] LABS: Troponin T High Sens 2 HR 16 ng/L (<=14)
[2025-08-08 22:58] LABS: Troponin T High Sens 4 HR 18 ng/L (<=14)
--- NOTE | 2025-08-08 23:26 | EDS_ITS ---
HPI History of Present Illness Chief Complaint: Chest Pain Informant: patient Narrative Narrative: Patient is a 69-year-old female with history of anxiety, GERD, hypertension (states she does not currently have hypertension nor does she take blood pressure medication) and vertigo/M?ni?re's disease presenting for left-sided chest discomfort. Patient notes that earlier today she had a dull ache in her left shoulder going down to her elbow. It seemed to improve within earlier in the evening she developed discomfort in her left thigh area and then around 530 or 6 PM developed a tightness in her left chest. States she is has been feeling well today has been very tired. Notes that she has recently had some stomach issues with increased acid reflux and bloating but that feels like it is more in her left side of her body. Also notes for couple weeks she has been having episodes of tingling on the left side of her body. Last for few hours at a time. She denies any shortness of breath. She denies any swelling of her legs. States she felt just fine yesterday. She is not sure if this is anxiety or something more. Came in for further evaluation. [facility] Medical History Meniere's disease HTN (hypertension) Vertigo Home Medications ?Medication ?Instructions ?Recorded ?Last Taken ?Type aspirin 81 mg chewable tablet 81 mg PO DAILY@0800 ##30 01/16/18 Unknown Rx lorazepam 0.5 mg tablet (Ativan) 0.5 mg PO BID PRN anx iety #6 tabs 08/08/25 Unknown Rx omeprazole 20 mg capsule,delayed 20 mg PO DAILY Unknown History release Allergy/AdvReac Type Severity Reaction Status Date / Time cefazolin (From [facility]) Allergy Shortness Verified 08/08/25 18:09 of breath codeine Allergy Unknown Verified 08/08/25 18:09 Social History household members: spouse Smoking Status: Never smoker ROS ROS ED Constitutional Constitutional ED: Denies chills or fever(s) ENT ENT ED: Denies sore throat Cardiovascular Cardiovascular: Reports as per HPI and chest pain; Denies palpitations Respiratory/Chest Respiratory/Chest: Denies cough or dyspnea Gastrointestinal Gastrointestinal: Reports abdominal pain and other Details: Reports mild GI upset/acid reflux and abdominal bloating ; Denies diarrhea or nausea Musculoskeletal Musculoskeletal: Reports myalgias; Denies arthralgias Integumentary Denies Abrasions or rash Neurologic Neurologic: Reports paresthesias LUE and LLE (Has had intermittent paresthesias for the past few days to weeks. None currently) Psychiatric Psychiatric: Reports anxiety Hematologic/Lymphatic Hematologic/Lymphatic: Denies easy bleeding or easy bruising EXAM Physical Exam Const Vital Signs: 08/08/25 18:07 08/08/25 18:09 08/08/25 18:14 Temperature 97.1 F L Temperature Source Temporal Pulse Rate 84 83 Respiratory Rate 16 18 Respiratory Effort Normal Non-Labored Blood Pressure 211/91 H 206/106 H Blood Pressure Mean 131 139 Pulse Ox 98 100 Oxygen Delivery Method Room Air Room Air 08/08/25 18:52 08/08/25 19:00 08/08/25 19:00 Temperature Temperature Source Pulse Rate 79 77 Respiratory Rate 17 18 Respiratory Effort Blood Pressure 195/90 H 175/83 H Blood Pressure Mean 125 113 Pulse Ox 98 99 Oxygen Delivery Method Room Air Room Air Room Air 08/08/25 20:00 08/08/25 21:00 08/08/25 21:30 Temperature Temperature Source Pulse Rate 77 88 78 Respiratory Rate 18 17 18 Respiratory Effort Blood Pressure 181/82 H 182/94 H 194/92 H Blood Pressure Mean 115 123 126 Pulse Ox 98 100 98 Oxygen Delivery Method Room Air Room Air Room Air 08/08/25 22:00 08/08/25 22:00 08/08/25 22:30 Temperature Temperature Source Pulse Rate 83 81 76 Respiratory Rate 18 18 18 Respiratory Effort Blood Pressure 191/88 H 191/88 H 170/71 H Blood Pressure Mean 122 122 104 Pulse Ox 99 99 93 Oxygen Delivery Method Room Air Room Air 08/08/25 23:00 08/08/25 23:30 Temperature 98 F Temperature Source Pulse Rate 70 71 Respiratory Rate 14 16 Respiratory Effort Blood Pressure 142/63 H 136/64 H Blood Pressure Mean 89 88 Pulse Ox 96 95 Oxygen Delivery Method Room Air Positive well nourished and well developed General Appearance ED: well developed and NAD HEENT Reports moist mucous membranes normocephalic and atraumatic Eyes PERRL and EOMs intact bilaterally Neck supple and no JVD Chest Wall inspection of chest normal Chest Narrative: No chest wall crepitus. Mild tenderness palpation of the left anterior chest wall. Resp normal respiratory effort and clear to auscultation bilaterally Cardio regular rate, regular rhythm and no murmurs Cardio Narrative: 2+ radial DP pulses GI normal to inspection, nondistended, normoactive bowel sounds and soft to palpation Extremity normal to inspection General Extremety ED: Negative for edema General Extremity: Negative for edema Neuro oriented x3, CN's II-XII intact bilaterally and no sensory deficits noted Neuro Narrative: NIH equals 0 Sensorium / Orientation: awake and alert Motor Exam: strength 5/5 throughout; Negative for general weakness Psych Mood & Affect: anxious Skin no rashes or lesions noted and no wounds Heart Score History: Slightly/Non-Suspicious ECG: Normal Age: >/= 65 years Risk Factors: 1 or 2 Risk Factors Troponin: </= Normal Limit Score: 3 MDM MDM MDM Narrative Medical decision making narrative: Patient is evaluated for left-sided chest discomfort as well as elevated blood pressure. She also reports she has had this vague intermittent tingling on the left side of her body. Does not sound consistent with ACS however given her elevated blood pressure did also consider TIA or intracranial hemorrhage. In addition to cardiac workup CT of the brain is obtained. Will check TSH to ensure she does not have acute thyroid abnormality causing her symptoms. Check BMP to check for any electrolyte derangement or signs of endorgan damage from her elevated blood pressure. CT of the brain does not show any acute process. CBC and BMP is normal. Initial high-sensitivity troponin is normal at 13. TSH is normal. Delta high- sensitivity troponin is now at 16. While this technically is a delta of less than 4 given her significantly elevated blood pressure I did suggest we check a 4-hour troponin level. This repeat is only 18 and her total delta is less than 6 which is not consistent with ACS and low risk per our guidelines. Chest x-ray reviewed by myself as well as radiology does not show any acute process. After the second delta patient does start to become very anxious and feels that she should just leave the ER. I did encourage her to stay and she would like some anxiety medicine to be more comfortable. Also given Tylenol she states she has a headache. Is given a dose of IV Ativan 0.5 mg as well as acetaminophen. Repeat evaluation her blood pressure is now normalized to 136/64 she states her symptoms have resolved and she is feeling much better. Given her overall reassuring cardiac workup and this pretty significant change in blood pressure and symptoms I do wonder if there is a significant anxiety component to her presentation today. Patient would like to be discharged home. Given her largely negative workup I think this is reasonable. She is a good candidate for outpatient follow-up. Encouraged to follow-up with her primary care doctor for this as I do think she would benefit from further outpatient testing. Also discussed keeping a blood pressure log and checking her blood pressure once a day or every few days for which she follows with her primary care doctor. She verbalized agreement understand this plan. Will be given a short prescription for Ativan for breakthrough anxiety symptoms. Encouraged to return to the emergency room should she have worsening symptoms including worsening chest pain or continued elevated blood pressure readings. She normalized so much with only anxiety medicine and I am hesitant to start her any blood pressure medicine at this time. Will have her follow-up with her primary care doctor for this Lab Data Attestation: I reviewed the patient's lab results. Labs: Laboratory Results - last 24 hr 08/08/25 08/08/25 08/08/25 18:25 20:34 22:14 WBC 7.3 RBC 5.14 Hgb 14.7 Hct 45.0 MCV 87.5 MCH 28.6 MCHC 32.7 RDW Std Deviation 40.0 RDW Coeff of Melissa 12.6 Plt Count 296 MPV 10.0 Immature Gran % (Auto) 0.100 Neut % (Auto) 55.2 Lymph % (Auto) 34.1 [place] % (Auto) 7.2 Eos % (Auto) 3.0 Baso % (Auto) 0.4 Absolute Neuts (auto) 4.0 Absolute Lymphs (auto) 2.47 Nucleated RBC % 0 Sodium 139 Potassium 4.0 Chloride 103 Carbon Dioxide 24.1 Anion Gap 12 BUN 16 Creatinine 0.75 Estim Creat Clear Calc 70.75 Est GFR (MDRD) Non-Af 85 BUN/Creatinine Ratio 21.1 H Glucose 88 Calcium 9.4 Troponin T High Sens 13 Troponin T Hi Sens 2 Hr 16 H Troponin T Hi Sens 4Hr 18 H TSH 2.220 Radiography Chest X-Ray - ED: 1 View, Read by ED Physician, Read by Radiologist and No Acute Disease Diagnostic Testing: Clinical Impression(s) from Imaging Studies Chest X-Ray 08/08/25 18:55 IMPRESSION: Low lung volumes. No acute infiltrate seen. Other findings discussed above. Reading Location: [id number] Brain CT 08/08/25 19:51 IMPRESSION: Unremarkable head CT. Reading Location: [facility] Rhythm Strip Rhythm Strip: Sinus Rhythm Rate: 79 Ectopy: None EKG Initial EKG: Attestation: I personally reviewed and interpreted this EKG as follows: Interpretation: Sinus Rhythm Comments: Normal sinus rhythm rate of 79 bpm Left axis deviation Incomplete right bundle branch block Normal ST segment Prior EKG tracings: available for review Prior: Unchanged (From 11/10/2020) Discharge Plan Triage Chief Complaint: Chest Pain ED Provider: Tiffanie Cruz Dx/Rx/DC Orders Clinical Impression: Atypical chest pain, Anxiety, Elevated blood pressure reading Instructions: ED Chest Pain, Uncertain Cause, ED Hypertension, To Be Confirmed Prescriptions: New lorazepam [Ativan] 0.5 mg tablet 0.5 mg PO BID PRN (Reason: anxiety) Qty: 6 0RF No Action aspirin 81 MG tablet,chewable 81 mg PO DAILY@0800 Qty: 30 0RF omeprazole 20 mg capsule,delayed release(DR/EC) 20 mg PO DAILY Primary Care Provider: Neftali Lowe Referrals: Neftali Lowe MD [Primary Care Provider, Family Practice] Activity Restrictions/Additional Instructions: Your blood pressure was initially quite elevated however did normalize. Your workup overall was reassuring. Please follow-up with your family medicine doctor for blood pressure check and further evaluation of this chest pain. Be a progression or worsening symptoms please return to the emergency room. Recommend keeping a blood pressure log continue follow-up with family doctor (check your blood pressure once a day or every other day) so he can review it Print Language: Lithuanian Disposition Disposition: Home, Self Care Discharge Date/Time: 08/08/25 23:45
== END 2025-08-08 23:45 | disposition home or self-care (01) ==
PROVIDERS: Emergency Provider Emergency Medicine; PCP Family Medicine; Visit Provider Emergency Medicine
DX: R07.89 Other chest pain (principal); F41.9 Anxiety disorder, unspecified; R03.0 Elevated blood-pressure reading, without diagnosis of hypertension; Z79.82 Long term (current) use of aspirin; Z79.899 Other long term (current) drug therapy
CPT/HCPCS: 70450; 71045; 80048; 84443; 84484; 85025; 93005; 96374; 99284; A4216

== ENCOUNTER → 2025-09-12 | Outpatient (CLI) | payer BC, SELFPAY ==
--- OUTSIDE RECORDS SUMMARY | 2025-09-12 08:00 | XMS RPT_ITS | CCD ---
Author Organization [facility] Care Team Providers Care Relationship Specialist Name Role Phone Chrissy MCKEON, Dr. Lindsay Primary Care Physician Dr. Tiffanie Cruz DO Attending Physician Dr. Tiffanie Cruz DO Emergency Department Physi mariangel Neftali Lowe Primary Care Unavailable Tiffanie Cruz Attending Unavailable Carroll Saenz Attending Unavailable Neftali Lowe Primary Care Unavailable Fransisca Garduno Attending Unavailable Shaan SENIOR SALESFORCE DEVELOPERFransisca Referring UnavailNeftali Chavarria Primary Care Unavailable Neftali Lowe Primary Care Unavailable Neftali Lowe Attending Unavailable Allergies Allergy Classification Reported Allergen(s) Allergy Type Date of Onset Reaction(s) Facility (3 sources) ceFAZolin Drug Allergy 2 Shortness of breath [facility] (3 sources) Codeine Drug Allergy 2 Unknown [facility] (1 source) ceFAZolin Drug Allergy 5 [facility]ository (1 source) Codeine Drug Allergy 5 [facility] Medications Current Medications Medication Drug Class(es) Dates Sig (Normalized) Sig (Original) aspirin 81 mg chewable tablet (3 sources) Platelet Aggregation Inhibitor, Nonsteroidal Anti-inflammatory Drug Start: 01-16-2018 take 1 tablet by mouth once daily Aspirin 81 MG tablet,chewable Active 81 mg PO DAILY@0800 30 0 January 16, 2018 1:00am Complies with drug therapy LORazepam 0.5 mg oral tablet (1 source) Benzodiazepine Start: 08-08-2025 take 1 tablet by mouth twice daily as needed for anxiety omeprazole 20 mg delayed release oral capsule (1 source) Proton Pump Inhibitor Start: 08-08-2025 take 1 capsule by mouth once daily Omeprazole 20 mg capsule,delayed release(/EC) Active 20 mg PO DAILY August 08, 2025 12:00am Complies with drug therapy Completed/Discontinued Medications Medication Drug Class(es) Dates Sig (Normalized) Sig (Original) amLODIPine 5 mg oral tablet (3 sources) Dihydropyridine Calcium Channel Neville Start: 01-16-2018 End: 08-08-2025 take 1 tablet by mouth once daily Amlodipine 5 MG tablet Discontinued 5 mg PO DAILY 30 0 January 16, 2018 1:00am August 08, 2025 8:00pm atorvastatin 10 mg oral tablet (3 sources) HMG-CoA Reductase Inhibitor Start: 01-16-2018 End: 08-08-2025 take 1 tablet by mouth at bedtime Atorvastatin 10 MG tablet Discontinued 10 mg PO AT BEDTIME 30 0 January 16, 2018 1:00am August 08, 2025 8:00pm smoking cessation 12 hr buPROPion hydrochloride 150 mg extended release oral tablet (3 sources) Aminoketone Start: 01-15-2018 End: 08-08-2025 take 1 tablet by mouth once daily, then take 1 tablet by mouth every twelve hours Bupropion Hcl (Smoking Deter) 150 MG tablet extended release 12 hr Discontinued 150 mg PO DAILY January 15, 2018 1:00am August 08, 2025 8:00pm anxiety cetirizine hydrochloride 10 mg oral tablet (3 sources) Histamine-1 Receptor Antagonist Start: 01-15-2018 End: 08-08-2025 take 1 tablet by mouth once daily Cetirizine (Zyrtec) 10 MG tablet Discontinued 10 mg PO DAILY January 15, 2018 1:00am August 08, 2025 8:00pm Allergies dexamethasone 1 mg/ml / neomycin 3.5 mg/ml / polymyxin b 62632 unt/ml ophthalmic suspension (1 source) Aminoglycoside Antibacterial, Polymyxin-class Antibacterial, Corticosteroid Start: 11-10-2024 End: 08-08-2025 Neomycin-Polymyxin B-Dexameth 3.5mg/mL-10,000 unit/mL-0.1 % drops,suspension Discontinued NMA OPHTHALMIC November 10, 2024 1:00am August 08, 2025 8:00pm hydrOXYzine hydrochloride 25 mg oral tablet (3 sources) Antihistamine Start: 03-15-2023 End: 08-08-2025 take 1 tablet by mouth at bedtime as needed for anxiety Hydroxyzine Hcl 25 mg tablet Discontinued 25 mg PO AT BEDTIME as needed for anxiety 7 0 March 15, 2023 2:28pm August 08, 2025 8:00pm spironolactone 25 mg oral tablet (3 sources) Aldosterone Antagonist Start: 01-15-2018 End: 08-08-2025 take 1 tablet by mouth once daily Spironolactone 25 MG tablet Discontinued 25 mg PO DAILY January 15, 2018 1:00am August 08, 2025 8:00pm vertigo Problems Active Problems Problem Classification Problem Date Documented Da te Episodic/Chronic Anxiety disorders (3 sources) Anxiety; Translations: [Anxiety disorder, unspecified] 03-15-2023 Chronic Conditions associated with dizziness or vertigo (1 source) Vertigo; Translations: [Dizziness and giddiness] 11-18-2024 Episodic E Codes: Fall (3 sources) Fall; Translations: [Unspecified fall, initial encounter] 01-22-2022 Episodic Essential hypertension (1 source) Elevated blood pressure; Translations: [Essential (primary) hypertension] 11-18-2024 Chronic Nonspecific chest pain (4 sources) Atypical chest pain; Translations: [Other chest pain] Onset: 08-10-2025 03-15-2023 Episodic Other circulatory disease (1 source) Elevated blood pressure; Translations: [Elevated blood-pressure reading, without diagnosis of hypertension] 08-16-2025 Episodic Screening and history of mental health and substance abuse codes (1 source) H/O: anxiety state; Translations: [Personal history of other mental and behavioral disorders] 11-18-2024 Episodic Sprains and strains (3 sources) Sprain of knee; Translations: [Sprain of unspecified site of unspecified knee, initial encounter] 01-22-2022 Episodic Past or Other Problems Problem Classification Problem Date Documented Da te Episodic/Chronic Other lower respiratory disease (1 source) Shortness of breath; Translations: [Shortness of breath] Onset: 12-01-2024 Episodic Results Test Name Value Interpretation Reference Range Facility 12 Lead EKGon 08-08-2025 12 Lead EKG [facility] [address] [place] [address] 12 Lead EKG 08/08/25 1813 MR#: [id number] Acct: [id number] Name: CAN MALLORY Rep #: [id number] : 1955 69 From: Onesimo Parkinson MD Attending Dr: Status: DEP ER Ordering Dr: Tiffanie Cruz DO Date: 08/08/25 Location: ED Sex: F C Admitted: Test Reason : Blood Pressure : */* mmHG Vent. Rate : 79 BPM Atrial Rate : 79 BPM P-R Int : 154 ms QRS Dur : 100 ms QT Int : 386 ms P-R-T Axes : 8 -31 18 degrees QTcB Int : 442 ms Normal sinus rhythm Left axis deviation Incomplete right bundle branch block Nonspecific ST abnormality Abnormal ECG Confirmed by ONESIMO APRKINSON MD ([id number]), map editor ISAI GARCIA ([id number]) on 08/10/2025 8:31:42 AM Referred By: Confirmed By: ONESIMO PARKINSON MD 08/10/25 0831 Date Onesimo Parkinson MD CC: Dr. Tiffanie Cruz DO; Dr. Neftali Lowe MD Signed Normal [facility] Absolute lymphocyte countOrd ered By: ED PROVIDER on 08-08-2025 Lymphocytes Auto (Unsp spec) [#/Vol] 2.47 10*3/uL 0.83-4.51 [facility] Absolute neutrophil countOrd ered By: ED PROVIDER on 08-08-2025 Neutrophils (Bld) [#/Vol] 4.0 10*3/uL 2.0-7.7 [facility] Anion gap in Serum or Plasma Ordered By: ED PROVIDER on 08-08-2025 Anion gap [Moles/Vol] 12 mmol/L - [facility] Automated lymphocyte count a s percentage of total leukocytesOrdered By: ED PROVIDER on 08-08-2025 Lymphocytes/100 WBC Auto (Unsp spec) 34.1 % [facility] BUN/creatinine ratioOrdered By: ED PROVIDER on 08-08-2025 Urea nitrogen/Creatinine [Mass ratio] 21.1 mg/mg High 09-07 [facility] Basic Metabolic Profile (BMP )on 08-08-2025 BUN/CRE 21.1 RATIO High 10-20 [facility] Comment on above: Performed By: #### L 500.2500, L100.0100, L501.4021 #### [facility] [address] [place], [address] Calcium [Mass/Vol] 9.4 mg/dL Normal 7.6-11.0 [facility] Comment on above: Performed By: #### L 500.2500, L100.0100, L501.4021 #### [facility] [address] [place], [address] Chloride [Moles/Vol] 103 mmol/L Normal 98-[address] [facility] Comment on above: Performed By: #### L 500.2500, L100.0100, L501.4021 #### [facility] [address] [place], [address] CO2 [Moles/Vol] 24.1 mmol/L Normal 21.0-32.0 [facility] Comment on above: Performed By: #### L 500.2500, L100.0100, L501.4021 #### [facility] [address] [place], [address] Creatinine [Mass/Vol] 0.75 mg/dL Normal 0.70-1.20 [facility] Comment on above: Performed By: #### L 500.2500, L100.0100, L501.4021 #### [facility] [address] [place], [address] ECRCL 70.75 ml/min Normal 50-250 [facility] Comment on above: Performed By: #### L 500.2500, L100.0100, L501.4021 #### [facility] [address] [place], [address] GAP 12 Normal 5-15 [facility] Comment on above: Performed By: #### L 500.2500, L100.0100, L501.4021 #### [facility] [address] [place], [address] GFR/1.73 sq M.predicted among non-blacks MDRD (S/P/Bld) [Vol rate/Area] 85 mL/min/{1.73_m2} Normal >60 [facility] Comment on above: Result Comment: mL/m in/1.73m2 CKD-EPI Creatinine Equation (2020) Performed By: #### L 500.2500, L100.0100, L501.4021 #### [facility] [address] [place], [address] Glucose [Mass/Vol] 88 mg/dL Normal 70-99 [facility] Comment on above: Performed By: #### L 500.2500, L100.0100, L501.4021 #### [facility] [address] [place], [address] Potassium [Moles/Vol] 4.0 mmol/L Normal 3.3-5.1 [facility] Comment on above: Performed By: #### L 500.2500, L100.0100, L501.4021 #### [facility] [address] [place], [address] Sodium [Moles/Vol] 139 mmol/L Normal 133-145 [facility] Comment on above: Performed By: #### L 500.2500, L100.0100, L501.4021 #### [facility] [address] [place], [address] Urea nitrogen [Mass/Vol] 16 mg/dL Normal 4-19 [facility] Comment on above: Performed By: #### L 500.2500, L100.0100, L501.4021 #### [facility] [address] [place], [address] Basophil percentageOrdered B y: ED PROVIDER on 08-08-2025 Basophils/100 WBC (Bld) 0.4 % 0-1 [facility] Brain/Head without Contrasto n 08-08-2025 Brain/Head without Contrast [facility] Services [address] [place], [place] [address] Brain/Head without Contrast MR#: [id number] Acct: [id number] Name: CAN MALLORY Rep #: [id number] : 1955 F 69 From: Miguel Braden MD PCP: Dr. Neftali Lowe MD Status: REG ER Study: Brain/Head without Contrast Date of Exam: 07/21 Exam# [id number] Ordering Dr: Tiffanie Cruz DO PROCEDURE: CT BRAIN/HEAD WITHOUT CONTRAST 08/08/2025 REASON FOR EXAM: LEFT SIDED PARESTHESIAS TECHNIQUE: Procedure Code: CTBR Modality: CT Procedure: BRAIN/HEAD WITHOUT CONTRAST Coronal and Sagittal reconstruction series were provided. One or more dose reduction techniques were used (e.g., Automated exposure control, adjustment of the mA and/or kV according to patient size, use of iterative reconstruction technique. RADIATION DOSE SUMMARY: CTDlvol: 44.99 mGy DLP: 796.11 mGycm COMPARISON: None. FINDINGS: No acute intracranial hemorrhage, extra-axial collection, mass effect or evidence of acute infarct. Ventricles and subarachnoid spaces are normal in size. Orbital contents are unremarkable. Intact skull base and calvarium. Clear paranasal sinuses and mastoid air cells. CT/Brain/Head without Contrast IMPRESSION: Unremarkable head CT. Reading Location: [facility] CC: Dr. Tiffanie Cruz DO; Dr. eNftali Lowe MD [employer] Routeman: Signed Normal [facility] CBC W/Diff, Automatedon 07-21 Absolute Lymph 2.47 X10 3/uL Normal 0.83-4.51 [facility] Comment on above: Performed By: #### L 500.2500, L100.0100, L501.4021 #### [facility] [address] [place], [address] Absolute Neut 4.0 X10 3/uL Normal 2.0-7.7 [facility] Comment on above: Performed By: #### L 500.2500, L100.0100, L501.4021 #### [facility] [address] [place], [address] Basophils/100 WBC (Bld) 0.4 % Normal 0-1 [facility] Comment on above: Performed By: #### L 500.2500, L100.0100, L501.4021 #### [facility] [address] [place], [address] Eosinophils/100 WBC (Bld) 3.0 % Normal 0-5 [facility] Comment on above: Performed By: #### L 500.2500, L100.0100, L501.4021 #### [facility] [address] [place], [address] Erythrocyte distribution width (RBC) [Ratio] 12.6 % Normal 11.6-14.6 [facility] Comment on above: Performed By: #### L 500.2500, L100.0100, L501.4021 #### [facility] [address] [place], [address] Hematocrit (Bld) [Volume fraction] 45.0 % Normal 37-47 [facility] Comment on above: Performed By: #### L 500.2500, L100.0100, L501.4021 #### [facility] [address] [place], [address] Hemoglobin (Bld) [Mass/Vol] 14.7 g/dL Normal 12.0-15.0 [facility] Comment on above: Performed By: #### L 500.2500, L100.0100, L501.4021 #### [facility] [address] [place], [address] IG% 0.100 Normal 0.0-0.9 [facility] Comment on above: Result Comment: IG% - Immature Granulocytes (promyelocytes, myelocytes and metamyelocytes) > 1% indicates that a LEFT SHIFT is Present. Performed By: #### L 500.2500, L100.0100, L501.4021 #### [facility] [address] [place], [address] Lymphocytes/100 WBC (Bld) 34.1 % Normal 19-41 [facility] Comment on above: Performed By: #### L 500.2500, L100.0100, L501.4021 #### [facility] [address] [place], [address] MCH (RBC) [Entitic mass] 28.6 pg Normal 27.0-32.0 [facility] Comment on above: Performed By: #### L 500.2500, L100.0100, L501.4021 #### [facility] [address] [place], [address] MCHC (RBC) [Mass/Vol] 32.7 g/dL Normal 32-36 [facility] Comment on above: Performed By: #### L 500.2500, L100.0100, L501.4021 #### [facility] [address] [place], [address] MCV (RBC) [Entitic vol] 87.5 fL Normal 81-99 [facility] Comment on above: Performed By: #### L 500.2500, L100.0100, L501.4021 #### [facility] [address] [place], [address] Monocytes/100 WBC (Bld) 7.2 % Normal 0-10 [facility] Comment on above: Performed By: #### L 500.2500, L100.0100, L501.4021 #### [facility] [address] [place], [address] Neutrophils/100 WBC (Bld) 55.2 % Normal 47-70 [facility] Comment on above: Performed By: #### L 500.2500, L100.0100, L501.4021 #### [facility] [address] [place], [address] Nucleated RBC (Bld) [#/Vol] 0 10*3/uL Normal 0-5 [facility] Comment on above: Performed By: #### L 500.2500, L100.0100, L501.4021 #### [facility] [address] [place], [address] Platelet mean volume (Bld) [Entitic vol] 10.0 fL Normal 6.2-12.0 [facility] Comment on above: Performed By: #### L 500.2500, L100.0100, L501.4021 #### [facility] [address] [place], [address] Platelets (Bld) [#/Vol] 296 10*3/uL Normal 150-450 [facility] Comment on above: Performed By: #### L 500.2500, L100.0100, L501.4021 #### [facility] [address] [place], [address] RBC (Bld) [#/Vol] 5.14 10*6/uL Normal 4.2-5.4 [facility] Comment on above: Performed By: #### L 500.2500, L100.0100, L501.4021 #### [facility] [address] [place], [address] RDW SD 40.0 fl Normal 35.1-43.9 [facility] Comment on above: Performed By: #### L 500.2500, L100.0100, L501.4021 #### [facility] [address] [place], [address] WBC (Bld) [#/Vol] 7.3 10*3/uL Normal 4.4-11.0 [facility] Comment on above: Performed By: #### L 500.2500, L100.0100, L501.4021 #### [facility] [address] [place], [place], [address] Carbon dioxide, total [Moles /volume] in Central venous bloodOrdered By: ED PROVIDER on 08-08-2025 CO2 [Moles/Vol] 24.1 mmol/L 21.0-32.0 [facility] Chest 1 View (Portable)on Chest 1 View (Portable) [facility] Imaging Services [address] [place] [address] Chest 1 View (Portable) MR#: [id number] Acct: [id number] Name: CAN MALLORY Rep #: [id number] : 1955 F 69 From: Hector Brooks MD PCP: Dr. Neftali Lowe MD Status: PRE ER Study: Chest 1 View (Portable) Date of Exam: 08/08/25 Exam# [id number] Ordering Dr: Provider,Ed P. PROCEDURE: CHEST 1 VIEW (PORTABLE) 08/08/2025 REASON FOR EXAM: CHEST PAIN TECHNIQUE: Frontal view of the chest. COMPARISON: Chest x-ray March 15, 2023. Prior report is not available. FINDINGS: Lungs: The lungs are symmetrically expanded. Lung volumes are low. Slightly coarsened reticular lung markings again noted likely due to chronic interstitial thickening. There is no consolidation. There is no peribronchial thickening. There is no pulmonary vascular redistribution. Pleura: No significant pleural effusion seen. There is no evidence of pneumothorax. Mediastinum: There is no mediastinal widening or mediastinal shift. Heart: The cardiac silhouette is not enlarged. Jayson: The pulmonary jayson are not enlarged or retracted. Osseous: No acute fracture is seen. Mild degenerative changes of the spine and shoulders. RAD/Chest 1 View (Portable) IMPRESSION: Low lung volumes. No acute infiltrate seen. Other findings discussed above. Reading Location: [facility] CC: Dr. Neftali Lowe MD; ED PHYSICIAN PROVIDER [employer] Routeman: Signed Normal [facility] Chloride assayOrdered By: ED PROVIDER on 08-08-2025 Chloride [Moles/Vol] 103 mmol/L 98-[address] [facility] Electrocardiogram reportOrde red By: Onesimo Parkinson on 08-08-2025 EKG study [facility] [address] [place] [address] 12 Lead EKG 08/08/25 1813 MR#: [id number] Acct: [id number] Name: SHAWNEECAN Fabián Rep #:[id number] : 1955 69 From: Onesimo Parkinson MD Attending Dr: Status: DEP E R Ordering Dr: Tiffanie Cruz DO Date: 08/08/25 Location: ED Sex: F C Admitted: Test Reason : Blood Pressure : */* mmHG Vent. Rate : 79 BPM Atrial Rate : 79 BPM P-R Int : 154 ms QRS Dur : 100 ms QT Int : 386 ms P-R-T Axes : 8 -31 18 degrees QTcB Int : 442 ms Normal sinus rhythm Left axis deviation Incomplete right bundle branch block Nonspecific ST abnormality Abnormal ECG Confirmed by ARLYN MCKEON, ONESIMO ([id number]), map editor ISAI GARCIA ([id number]) on 08/10/2025 8:31:42 AM Referred By: Confirmed By: ONESIMO PARKINSON MD 08/10/25 0831 Date _ Onesimo Parkinson MD CC: Dr. Tiffanie Cruz DO; Dr. Neftali Lowe MD ~ Signed [facility] Other Emergency Department Summary on 08-08-2025 Emergency Department Summary [facility] Medical Records Department [address] [place] [address] Emergency Department Summary 08/08/25 MR#: [id number] Acct: [id number] Name: CAN MALLORY Rep #: [id number] : 1955 69 From: Tiffanie Cruz DO PCP: Dr. Neftali Lowe MD Status:DEP ER Location: ED HPI History of Present Illness Chief Complaint: Chest Pain Informant: patient Narrative Narrative: Patient is a 69-year-old female with history of anxiety, GERD, hypertension (states she does not currently have hypertension nor does she take blood pressure medication) and vertigo/M???ni???re 's disease presenting for left-sided chest discomfort. Patient notes that earlier today she had a dull ache in her left shoulder going down to her elbow. It seemed to improve within earlier in the evening she developed discomfort in her left thigh area and then around 530 or 6 PM developed a tightness in her left chest. States she is has been feeling well today has been very tired. Notes that she has recently had some stomach issues with increased acid reflux and bloating but that feels like it is more in her left side of her body. Also notes for couple weeks she has been having episodes of tingling on the left side of her body. Last for few hours at a time. She denies any shortness of breath. She denies any swelling of her legs. States she felt just fine yesterday. She is not sure if this is anxiety or something more. Came in for further evaluation. [facility] Medical History Meniere's disease HTN (hypertension) Vertigo Home Medications ???Medication ???Instructions ???Recorded ???Last Taken ???Type aspirin 81 mg chewable tablet 81 mg PO DAILY@0800 ##30 01/16/18 Unknown Rx lorazepam 0.5 mg tablet (Ativan) 0.5 mg PO BID PRN anxiety #6 tabs 08/08/25 Unknown Rx omeprazole 20 mg capsule,delayed 20 mg PO DAILY 08/08/25 Unknown Hi story release Allergy/AdvReac Type Severity Reaction Status Date / Time cefazolin (From [facility]) Allergy Shortness Verified 08/08/25 18:09 of breath codeine Allergy Unknown Verified 08/08/25 18:09 Social History household members: spouse Smoking Status: Never smoker ROS ROS ED Constitutional Constitutional ED: Denies chills or fever(s) ENT ENT ED: Denies sore throat Cardiovascular Cardiovascular: Reports as per HPI and chest pain; Denies palpitations Respiratory/Chest Respiratory/Chest: Denies cough or dyspnea Gastrointestinal Gastrointestinal: Reports abdominal pain and other Details: Reports mild GI upset/acid reflux and abdominal bloating ; Denies diarrhea or nausea Musculoskeletal Musculoskeletal: Reports myalgias; Denies arthralgias Integumentary Denies Abrasions or rash Neurologic Neurologic: Reports paresthesias LUE and LLE (Has had intermittent paresthesias for the past few days to weeks. None currently) Psychiatric Psychiatric: Reports anxiety Hematologic/Lymphat ic Hematologic/Lymphat ic: Denies easy bleeding or easy bruising EXAM Physical Exam Const Vital Signs: 08/08/25 18:07 08/08/25 18:09 08/08/25 18:14 Temperature 97.1 F L Temperature Source Temporal Pulse Rate 84 83 Respiratory Rate 16 18 Respiratory Effort Normal Non-Labored Blood Pressure 211/91 H 206/106 H Blood Pressure Mean 131 139 Pulse Ox 98 100 Oxygen Delivery Method Room Air Room Air 08/08/25 18:52 08/08/25 19:00 08/08/25 19:00 Temperature Temperature Source Pulse Rate 79 77 Respiratory Rate 17 18 Respiratory Effort Blood Pressure 195/90 H 175/83 H Blood Pressure Mean 125 113 Pulse Ox 98 99 Oxygen Delivery Method Room Air Room Air Room Air 08/08/25 20:00 08/08/25 21:00 08/08/25 21:30 Temperature Temperature Source Pulse Rate 77 88 78 Respiratory Rate 18 17 18 Respiratory Effort Blood Pressure 181/82 H 182/94 H 194/92 H Blood Pressure Mean 115 123 126 Pulse Ox 98 100 98 Oxygen Delivery Method Room Air Room Air Room Air 08/08/25 22:00 08/08/25 22:00 08/08/25 22:30 Temperature Temperature Source Pulse Rate 83 81 76 Respiratory Rate 18 18 18 Respiratory Effort Blood Pressure 191/88 H 191/88 H 170/71 H Blood Pressure Mean 122 122 104 Pulse Ox 99 99 93 Oxygen Delivery Method Room Air Room Air 08/08/25 23:00 08/08/25 23:30 Temperature 98 F Temperature Source Pulse Rate 70 71 Respiratory Rate 14 16 Respiratory Effort Blood Pressure 142/63 H 136/64 H Blood Pressure Mean 89 88 Pulse Ox 96 95 Oxygen Delivery Method Room Air Positive well nourished and well developed General Appearance ED: well developed and NAD HEENT Reports moist mucous membra (more content not included)... Normal [facility] Eosinophil percentageOrdered By: ED PROVIDER on 08-08-2025 Eosinophils/100 WBC (Bld) 3.0 % 0-5 [facility] Erythrocyte distribution wid th ratioOrdered By: ED PROVIDER on 08-08-2025 Erythrocyte distribution width (RBC) [Ratio] 12.6 % 11.6-14.6 [facility] Erythrocyte distribution wid th standard deviationOrdered By: ED PROVIDER on 08-08-2025 Erythrocyte distribution width (RBC) [Ratio] 40.0 fl 35.1-43.9 [facility] Glomerular filtration rate ( GFR) estimation/1.73 sq m using serum, plasma, or whole bOrdered By: ED PROVIDER on 08-08-2025 GFR/1.73 sq M.predicted among non-blacks MDRD (S/P/Bld) [Vol rate/Area] 85 mL/min/{1.73_m2} >60 [facility] Comment on above: mL/min/1.73m2 CKD-EP I Creatinine Equation (2020) Hematocrit Auto (Bld) [Volum e fraction]Ordered By: ED PROVIDER on 08-08-2025 Hematocrit (Bld) [Volume fraction] 45.0 % 37-47 [facility] Hemoglobin measurementOrdere d By: ED PROVIDER on 08-08-2025 Hemoglobin (Bld) [Mass/Vol] 14.7 g/dL 12.0-15.0 [facility] Immature granulocytes/100 WB C Auto (Bld)Ordered By: ED PROVIDER on 08-08-2025 Immature granulocytes/100 WBC (Bld) 0.100 % 0.0-0.9 [facility] Comment on above: IG% - Immature Granu locytes (promyelocytes, myelocytes and metamyelocytes) > 1% indicates that a LEFT SHIFT is Present. L501.4021on 08-08-2025 Trop T High Sen 13 ng/L Normal <=14 [facility] Comment on above: Performed By: #### L 500.2500, L100.0100, L501.4021 #### [facility] [address] [place], [address] MCV (mean corpuscular volume ) determinationOrdered By: ED PROVIDER on 08-08-2025 MCV (RBC) [Entitic vol] 87.5 fL 81-99 [facility] Mean corpuscular hemoglobin (MCH) determinationOrdered By: ED PROVIDER on 08-08-2025 MCH (RBC) [Entitic mass] 28.6 pg 27.0-32.0 [facility] Mean corpuscular hemoglobin concentration (MCHC) determinationOrdered By: ED PROVIDER on 08-08-2025 MCHC (RBC) [Mass/Vol] 32.7 g/dL 32-36 [facility] Mean platelet volume determi nationOrdered By: ED PROVIDER on 08-08-2025 Platelet mean volume (Bld) [Entitic vol] 10.0 fL 6.2-12.0 [facility] Monocyte percentageOrdered B y: ED PROVIDER on 08-08-2025 Monocytes/100 WBC (Bld) 7.2 % 0-10 [facility] Neutrophil percentageOrdered By: ED PROVIDER on 08-08-2025 Neutrophils/100 WBC (Bld) 55.2 % 47-70 [facility] Nucleated red blood cell per centageOrdered By: ED PROVIDER on 08-08-2025 Nucleated RBC/100 WBC (Bld) [Ratio] 0 % 0-5 [facility] Platelet countOrdered By: ED PROVIDER on 08-08-2025 Platelets (Bld) [#/Vol] 296 10*3/uL 150-450 [facility] Potassium measurement (mass/ volume)Ordered By: ED PROVIDER on 08-08-2025 Potassium (Unsp spec) [Mass/Vol] 4.0 mmol/L 3.3-5.1 [facility] RBC Auto (Bld) [#/Vol]Ordere d By: ED PROVIDER on 08-08-2025 RBC (Bld) [#/Vol] 5.14 10*6/uL 4.2-5.4 [facility] Serum creatinine measurement (mass/volume)Ordered By: ED PROVIDER on 08-08-2025 Creatinine [Mass/Vol] 0.75 mg/dL 0.70-1.20 [facility] Serum glucose measurement (m ass/volume)Ordered By: ED PROVIDER on 08-08-2025 Glucose [Mass/Vol] 88 mg/dL 70-99 [facility] Serum or plasma calcium bridger urement (mass/volume)Ordered By: ED PROVIDER on 08-08-2025 Calcium [Mass/Vol] 9.4 mg/dL 7.6-11.0 [facility] Serum or plasma urea nitroge n measurement (mass/volume)Ordered By: ED PROVIDER on 08-08-2025 Urea nitrogen [Mass/Vol] 16 mg/dL 4-19 [facility] Sodium levelOrdered By: ED P LAUREN on 08-08-2025 Sodium [Moles/Vol] 139 mmol/L 133-145 [facility] TSH DL <= 0.005 mIU/L QnOrde red By: Tiffanie Cruz on 08-08-2025 TSH Qn 2.220 uIU/mL 0.300-4.200 [facility] Thyroid Stim Hormone (TSH)on 08-08-2025 TSH 2.220 uIU/mL Normal 0.300-4.200 [facility] Comment on above: Performed By: #### L 501.9520 ####[facility] [address] [place], [place], [address]([phone] Troponin T HS 2 HRon 025 Trop T High Sen 16 ng/L High <=14 [facility] Comment on above: Performed By: #### L 499.0042 #### [facility] [address] [place], [place], [address] [phone] Troponin T HS 4 HRon 025 Trop T High Sen 18 ng/L High <=14 [facility] Comment on above: Performed By: #### L 499.0043 #### [facility] [address] [facility] [place], [place], [address] [phone]) Troponin T.cardiac [Mass/vol ume] in Serum or Plasma by High sensitivity methodOrdered By: Tiffanie Cruz on 08-08-2025 Troponin T.cardiac High sensitivity method [Mass/Vol] 18 ng/L High <14 [facility] Troponin T.cardiac High sensitivity method [Mass/Vol] 16 ng/L High <14 [facility] Troponin T.cardiac [Mass/vol ume] in Serum or Plasma by High sensitivity methodOrdered By: ED PROVIDER on 08-08-2025 Troponin T.cardiac High sensitivity method [Mass/Vol] 13 ng/L <14 [facility] White blood cell (WBC) count Ordered By: ED PROVIDER on 08-08-2025 WBC (Bld) [#/Vol] 7.3 10*3/uL 4.4-11.0 [facility] 12 Lead EKGon 11-10-2024 12 Lead EKG [facility] [address] [place] [address] 12 Lead EKG 11/10/24 1021 MR#: [id number] Acct: [id number] Name: CAN MALLORY Rep #: [id number] : 1955 68 From: Onesimo Parkinson MD Attending Dr: Status: DEP ER Ordering [...] Nonspecific ST abnormality Abnormal ECG Confirmed by ARLYN MCKOEN, ONESIMO ([id number]), map editor PAUL BETANCOURT ([id number]) on 11/13/2024 2:21:33 PM Referred By: KAY/PIO Confirmed By: ONESIMO PARKINSON MD 11/13/24 1421 Date Onesimo Parkinson MD CC: Dr. Neftali Lowe MD; Dr. Carroll Saenz MD Signed Normal [facility] Basic Metabolic Profile (BMP )on 11-10-2024 BUN/CRE 24.6 RATIO High 09-07 [facility] Comment on above: Performed By: #### L 100.0100, L500.2500 ####[facility] [address] [place], [address] CA,Total 9.4 mg/dL Normal 8.5-10.1 [facility] Comment on above: Performed By: #### L 100.0100, L500.2500 ####[facility] [address] [place], [address] Chloride [Moles/Vol] 103 mmol/L Normal 98-[address] [facility] Comment on above: Performed By: #### L 100.0100, L500.2500 ####[facility] [address] [place], [address] CO2 [Moles/Vol] 26.0 mmol/L Normal 21.0-32.0 [facility] Comment on above: Performed By: #### L 100.0100, L500.2500 ####[facility] [address] [place], [address] Creatinine [Mass/Vol] 0.85 mg/dL Normal 0.55-1.02 [facility] Comment on above: Result Comment: The validity of the calculated GFR GFRAA in patients over 70 years has not been determined. Clinical correlation is essential. Performed By: #### L 100.0100, L500.2500 ####[facility] [address] [place], [address] ECRCL 2.31 ml/min Normal [facility] Comment on above: Performed By: #### L 100.0100, L500.2500 ####[facility] [address] [place], [address] EST GFR - AA 85 mL/min Normal >60 [facility] Comment on above: Result Comment: Afri can Iraqi GFR Calc Performed By: #### L 100.0100, L500.2500 ####[facility] [address] [place], [address] GAP 6 Normal 5-15 [facility] Comment on above: Performed By: #### L 100.0100, L500.2500 ####[facility] [address] [place], [address] GFR/1.73 sq M.predicted among non-blacks MDRD (S/P/Bld) [Vol rate/Area] 70 mL/min/{1.73_m2} Normal >60 [facility] Comment on above: Result Comment: Non- GFR Calc Performed By: #### L 100.0100, L500.2500 ####[facility] [address] [place], [address] Glucose [Mass/Vol] 114 mg/dL High 74-106 [facility] Comment on above: Result Comment: Fast ing Glucose result from 100 to 125 mg/dL suggests IMPAIRED HOMEOSTASIS per A.D.A. criteria. Performed By: #### L 100.0100, L500.2500 ####[facility] [address] [place], [address] Potassium [Moles/Vol] 4.4 mmol/L Normal 3.5-5.1 [facility] Comment on above: Result Comment: Mode rate Hemolysis, Result may be falsely increased. Performed By: #### L 100.0100, L500.2500 ####[facility] [address] [place], [address] Sodium [Moles/Vol] 135 mmol/L Low 136-145 [facility] Comment on above: Performed By: #### L 100.0100, L500.2500 ####[facility] [address] [place], [address] Urea nitrogen [Mass/Vol] 21 mg/dL High 7-18 [facility] Comment on above: Performed By: #### L 100.0100, L500.2500 ####[facility] [address] [place], [address] CBC W/Diff, Automatedon 12-2 -2023 Absolute Lymph 1.20 X10 3/uL Normal 0.83-4.51 [facility] Comment on above: Performed By: #### L 100.0100, L500.2500 ####[facility] [address] [place], [address] Absolute Neut 4.3 X10 3/uL Normal 2.0-7.7 [facility] Comment on above: Performed By: #### L 100.0100, L500.2500 ####[facility] [address] [place], [address] Basophils/100 WBC (Bld) 0.6 % Normal 0-1 [facility] Comment on above: Performed By: #### L 100.0100, L500.2500 ####[facility] [address] [place], [address] Eosinophils/100 WBC (Bld) 1.8 % Normal 0-5 [facility] Comment on above: Performed By: #### L 100.0100, L500.2500 ####[facility] [address] [place], [address] Erythrocyte distribution width (RBC) [Ratio] 12.7 % Normal 11.6-14.6 [facility] Comment on above: Performed By: #### L 100.0100, L500.2500 ####[facility] [address] [place], [address] Hematocrit (Bld) [Volume fraction] 47.8 % High 37-47 [facility] Comment on above: Performed By: #### L 100.0100, L500.2500 ####[facility] [address] [place], [address] Hemoglobin (Bld) [Mass/Vol] 15.2 g/dL High 12.0-15.0 [facility] Comment on above: Performed By: #### L 100.0100, L500.2500 ####[facility] [address] [place], [address] IG% 0.500 Normal 0.0-0.9 [facility] Comment on above: Result Comment: IG% - Immature Granulocytes (promyelocytes, myelocytes and metamyelocytes) > 1% indicates that a LEFT SHIFT is Present. Performed By: #### L 100.0100, L500.2500 ####[facility] [address] [place], [address] Lymphocytes/100 WBC (Bld) 19.4 % Normal 19-41 [facility] Comment on above: Performed By: #### L 100.0100, L500.2500 ####[facility] [address] [place], [address] MCH (RBC) [Entitic mass] 28.3 pg Normal 27.0-32.0 [facility] Comment on above: Performed By: #### L 100.0100, L500.2500 ####[facility] [address] [place], [address] MCHC (RBC) [Mass/Vol] 31.8 g/dL Low 32-36 [facility] Comment on above: Performed By: #### L 100.0100, L500.2500 ####[facility] [address] [place], [address] MCV (RBC) [Entitic vol] 88.8 fL Normal 81-99 [facility] Comment on above: Performed By: #### L 100.0100, L500.2500 ####[facility] [address] [place], [address] Monocytes/100 WBC (Bld) 7.8 % Normal 0-10 [facility] Comment on above: Performed By: #### L 100.0100, L500.2500 ####[facility] [address] [place], [address] Neutrophils/100 WBC (Bld) 69.9 % Normal 47-70 [facility] Comment on above: Performed By: #### L 100.0100, L500.2500 ####[facility] [address] [place], [address] Nucleated RBC (Bld) [#/Vol] 0 10*3/uL Normal 0-5 [facility] Comment on above: Performed By: #### L 100.0100, L500.2500 ####[facility] [address] [place], [address] Platelet mean volume (Bld) [Entitic vol] 9.8 fL Normal 6.2-12.0 [facility] Comment on above: Performed By: #### L 100.0100, L500.2500 ####[facility] [address] [place], [address] Platelets (Bld) [#/Vol] 292 10*3/uL Normal 150-450 [facility] Comment on above: Performed By: #### L 100.0100, L500.2500 ####[facility] [address] [place], [address] RBC (Bld) [#/Vol] 5.38 10*6/uL Normal 4.2-5.4 [facility] Comment on above: Performed By: #### L 100.0100, L500.2500 ####[facility] [address] [place], [address] RDW SD 41.0 fl Normal 35.1-43.9 [facility] Comment on above: Performed By: #### L 100.0100, L500.2500 ####[facility] [address] [place], [address] WBC (Bld) [#/Vol] 6.2 10*3/uL Normal 4.4-11.0 [facility] Comment on above: Performed By: #### L 100.0100, L500.2500 ####[facility] [address] [place], [address] Emergency Department Summary on 11-10-2024 Emergency Department Summary [facility] Medical Records Department [address] [place] [address] Emergency Department Summary 11/10/24 MR#: [id number] Acct: [id number] Name: CAN MALLORY Rep #: [id number] : 1955 68 From: Carroll Saenz MD PCP: Dr. Neftali Lowe MD Status:REG ER Location: ED HPI History of Present Illness Chief Complaint: Shortness of Breath Detail of Chief Complaint: Bilateral blurred vision, movement and problems with balance Informant: patient and spouse/S.O. Onset/Context/Timin g Onset: Hours Context: Sudden Onset Timing: Intermittent [...] symptoms. Prior similar symptoms: Yes (Vertigo) Recent Illness/Hospitaliza tion: No PFSH PFSH Medical History Meniere's disease HTN (hypertension) Vertigo Home Medications ???Medication ???Instructions ???Recorded ???Last Taken ???Type bupropion HCl (smoking deter) 150 150 mg PO DAILY anxiety 01/15/18 01/15/18 08:00 History mg tablet,12 hr sustained-release(s moking deterrent) cetirizine 10 mg tablet (Zyrtec) 10 [...] PRN anxiety #7 tabs 03/15/23 Unknown Rx neomycin-polymyxin- dexameth 3.5 drp ophthalmic (eye) 11/10/24 Unknown History mg/mL-10,000 unit/mL-0.1% eye drops Allergy/AdvReac Type Severity Reaction Status Date / Time cefazolin (From [facility]) Allergy Shortness Verified 01/14/22 11:34 of breath [...] Denies depression Endocrine Endocrinology: Denies cold intolerance Hematologic/Lymphat ic Hematologic/Lymphat ic: Denies systems reviewed and no addt'l complaints, [...] developed and (more content not included)... Normal [facility] Basic Metabolic Profile (BMP )on 10-13-2024 BUN/CRE 22.1 RATIO High - [facility] Comment on above: Performed By: #### L 500.4100, L500.2500 #### [facility] [address] [place], [address] CA,Total 9.1 mg/dL Normal 8.5-10.1 [facility] Comment on above: Performed By: #### L 500.4100, L500.2500 #### [facility] [address] [place], [address] Chloride [Moles/Vol] 107 mmol/L Normal 98-[address] [facility] Comment on above: Performed By: #### L 500.4100, L500.2500 #### [facility] [address] [place], [address] CO2 [Moles/Vol] 26.0 mmol/L Normal 21.0-32.0 [facility] Comment on above: Performed By: #### L 500.4100, L500.2500 #### [facility] [address] [place], [address] Creatinine [Mass/Vol] 0.72 mg/dL Normal 0.55-1.02 [facility] Comment on above: Result Comment: The validity of the calculated GFR GFRAA in patients over 70 years has not been determined. Clinical correlation is essential. Performed By: #### L 500.4100, L500.2500 #### [facility] [address] [place], [address] EST GFR - AA 102 mL/min Normal >60 [facility] Comment on above: Result Comment: Afri can Iraqi GFR Calc Performed By: #### L 500.4100, L500.2500 #### [facility] [address] [place], [address] GAP 6 Normal 5-15 [facility] Comment on above: Performed By: #### L 500.4100, L500.2500 #### [facility] [address] [place], [address] GFR/1.73 sq M.predicted among non-blacks MDRD (S/P/Bld) [Vol rate/Area] 84 mL/min/{1.73_m2} Normal >60 [facility] Comment on above: Result Comment: Non- GFR Calc Performed By: #### L 500.4100, L500.2500 #### [facility] [address] [place], [address] Glucose [Mass/Vol] 94 mg/dL Normal 74-106 [facility] Comment on above: Performed By: #### L 500.4100, L500.2500 #### [facility] [address] [place], [address] Potassium [Moles/Vol] 4.4 mmol/L Normal 3.5-5.1 [facility] Comment on above: Performed By: #### L 500.4100, L500.2500 #### [facility] [address] [place], [address] Sodium [Moles/Vol] 139 mmol/L Normal 136-145 [facility] Comment on above: Performed By: #### L 500.4100, L500.2500 #### [facility] [address] [place], [address] Urea nitrogen [Mass/Vol] 16 mg/dL Normal 7-18 [facility] Comment on above: Performed By: #### L 500.4100, L500.2500 #### [facility] [address] [place], [address] Lipid Profileon 10-13-2024 Cholesterol [Mass/Vol] 205 mg/dL High 200 [facility] Comment on above: Result Comment: <200 mg/dL Desirable 200-240 mg/dL Borderline >240 mg/dL High Risk Performed By: #### L 500.4100, L500.2500 ####[facility] [address] [place], [address] Cholesterol in HDL [Mass/Vol] 67 mg/dL Normal [facility] Comment on above: Result Comment: The drugs N-Acetylcysteine and Metamizole may falsely depress this assay. Reference Range HDL <40 mg/dL Low HDL Cholesterol HDL >or= 60 mg/dL High HDL Cholesterol Performed By: #### L 500.4100, L500.2500 ####[facility] [address] [place], [address] Cholesterol in LDL [Mass/Vol] 122 mg/dL Normal 0-130 [facility] Comment on above: Performed By: #### L 500.4100, L500.2500 ####[facility] [address] [place], [address] Cholesterol in VLDL [Mass/Vol] 16 mg/dL Normal 5-40 [facility] Comment on above: Performed By: #### L 500.4100, L500.2500 ####[facility] [address] [place], [place], [address] Triglyceride [Mass/Vol] 79 mg/dL Normal [facility] Comment on above: Result Comment: The drugs N-Acetylcysteine and Metamizole may falsely depress this assay. Serum Triglycerides Reference Interval Normal <150 mg/dL Borderline high 150 - 199 mg/dL High 200 - 499 mg/dL Very High > or = 500 mg/dL Performed By: #### L 500.4100, L500.2500 ####[facility] [address] [place], [address] Basophil percentageOrdered B y: Neftali Lowe on 09-14-2023 Chloride [Moles/Vol] 105 mmol/L 98-[address] [facility] Cholesterol [Mass/Vol] 234 mg/dL <200 [facility] Comment on above: <200 mg/dL Desirable 200-240 mg/dL Borderline >240 mg/dL High Risk Glucose [Mass/Vol] 92 mg/dL 74-106 [facility] Potassium [Moles/Vol] 4.2 mmol/L 3.5-5.1 [facility] Comment on above: Slight Hemolysis, Re sult may be falsely increased. Sodium [Moles/Vol] 137 mmol/L 136-145 [facility] Triglyceride [Mass/Vol] 134 mg/dL <199 [facility] Comment on above: The drugs N-Acetylcy steine and Metamizole may falsely depress this assay.Serum Triglycerides Reference Interval Normal <150 mg/dL Borderline high 150 - 199 mg/dL High 200 - 499 mg/dL Very High > or = 500 mg/dL Laboratory - Chemistry and C hemistry - challengeOrdered By: Neftali Lowe on 09-14-2023 CO2 [Moles/Vol] 26.0 mmol/L 21.0-32.0 [facility] Urea nitrogen/Creatinine [Mass ratio] 23.8 mg/mg - [facility] No Panel InformationOrdered By: Neftali Lowe on 09-14-2023 Estimated GFR (MDRD) Amer 97 mL/min >60 [facility] Comment on above: GFR Calc Estimated GFR (MDRD) Non-Af Amer 80 mL/min >60 [facility] Comment on above: Non- GFR Calc Serum or plasma calcium bridger urement (mass/volume)Ordered By: Neftali Lowe on 09-14-2023 Calcium [Mass/Vol] 9.0 mg/dL 8.5-10.1 [facility] Serum or plasma cholesterol in HDL measurement (mass/volume)Ordered By: Neftali Lowe on 09-14-2023 Cholesterol in HDL [Mass/Vol] 65 mg/dL >40 [facility] Comment on above: The drugs N-Acetylcy steine and Metamizole may falsely depress this assay. Reference Range HDL <40 mg/dL Low HDL Cholesterol HDL >or= 60 mg/dL High HDL Cholesterol Serum or plasma cholesterol in VLDL measurement (mass/volume)Ordered By: Neftali Lowe on 09-14-2023 Cholesterol in VLDL [Mass/Vol] 27 mg/dL 5-40 [facility] Serum or plasma creatinine m easurement (mass/volume)Ordered By: Neftali Lowe on 09-14-2023 Creatinine [Mass/Vol] 0.76 mg/dL 0.55-1.02 [facility] Comment on above: The validity of the calculated GFR & GFRAA in patients over 70 years has not been determined. Clinical correlation is essential. Serum or plasma low density lipoprotein (LDL) cholesterol measurement (mass/volume)Ordered By: Neftali Lowe on 09-14-2023 Cholesterol in LDL [Mass/Vol] 142 mg/dL 0-130 [facility] Serum or plasma urea nitroge n measurement (mass/volume)Ordered By: Neftali Lowe on 09-14-2023 Urea nitrogen [Mass/Vol] 18 mg/dL 7-18 [facility] Thin prep Papanicolaou smear with manual screeningOrdered By: Neftali Lowe on 09-14-2023 Thin prep Papanicolaou smear with manual screening 6 5-15 [facility] Absolute lymphocyte countOrd ered By: Dr. Curz on 03-15-2023 Lymphocytes Auto (Unsp spec) [#/Vol] 1.23 10*3/uL 0.83-4.51 [facility] Basophil percentageOrdered B y: Dr. Cruz on 03-15-2023 Basophils/100 WBC (Bld) 0.4 % 0-1 [facility] Chloride [Moles/Vol] 106 mmol/L 98-[address] [facility] Eosinophils/100 WBC (Bld) 1.4 % 0-5 [facility] Glucose [Mass/Vol] 118 mg/dL 74-106 [facility] Comment on above: Fasting Glucose resu lt from 100 to 125 mg/dL suggests IMPAIRED HOMEOSTASIS per A.D.A. criteria. Neutrophils (Bld) [#/Vol] 5.4 10*3/uL 2.0-7.7 [facility] Neutrophils/100 WBC (Bld) 73.9 % 47-70 [facility] Potassium [Moles/Vol] 3.6 mmol/L 3.5-5.1 [facility] Sodium [Moles/Vol] 137 mmol/L 136-145 [facility] WBC (Bld) [#/Vol] 7.4 10*3/uL 4.4-11.0 [facility] Blood erythrocytes count (nu mber/volume)Ordered By: Dr. Cruz on 03-15-2023 RBC (Bld) [#/Vol] 5.23 10*6/uL 4.2-5.4 [facility] Blood hemoglobin measurement (mass/volume)Ordered By: Dr. Cruz on 03-15-2023 Hemoglobin (Bld) [Mass/Vol] 14.9 g/dL 12.0-15.0 [facility] Blood lymphocytes/100 leukoc ytesOrdered By: Dr. Cruz on 03-15-2023 Lymphocytes/100 WBC (Bld) 16.7 % 19-41 [facility] Blood monocytes/100 leukocyt esOrdered By: Dr. Cruz on 03-15-2023 Monocytes/100 WBC (Bld) 7.2 % 0-10 [facility] Blood platelet mean volumeOr dered By: Dr. Cruz on 03-15-2023 Platelet mean volume (Bld) [Entitic vol] 10.0 fL 6.2-12.0 [facility] Determination of erythrocyte mean corpuscular volume (MCV)Ordered By: Dr. Cruz on 03-15-2023 MCV (RBC) [Entitic vol] 91.4 fL 81-99 [facility] Hematocrit Auto (Bld) [Volum e fraction]Ordered By: Dr. Cruz on 03-15-2023 Hematocrit (Bld) [Volume fraction] 47.8 % 37-47 [facility] - Chemistry and C hemistry - challengeOrdered By: Dr. Cruz on 03-15-2023 CO2 [Moles/Vol] 26.0 mmol/L 21.0-32.0 [facility] Magnesium [Mass/Vol] 2.4 mg/dL 1.6-2.[address] [facility] Urea nitrogen/Creatinine [Mass ratio] 19.0 mg/mg 10-20 [facility] - Hematology and Cell countsOrdered By: Dr. Cruz on 03-15-2023 Erythrocyte distribution width (RBC) [Entitic vol] 41.4 fL 35.1-43.9 [facility] Erythrocyte distribution width (RBC) [Ratio] 12.4 % 11.6-14.6 [facility] Immature granulocytes/100 WBC (Bld) 0.400 % 0.0-0.9 [facility] Comment on above: IG% - Immature Granu locytes (promyelocytes, myelocytes and metamyelocytes) > 1% indicates that a LEFT SHIFT is Present. MCH (RBC) [Entitic mass] 28.5 pg 27.0-32.0 [facility] Nucleated RBC/100 WBC (Bld) [Ratio] 0 % 0-5 [facility] [facility] MCHC Auto (RBC) [Mass/Vol]Or dered By: Dr. Cruz on 03-15-2023 MCHC (RBC) [Mass/Vol] 31.2 g/dL 32-36 [facility] No Panel InformationOrdered By: Dr. Cruz on 03-15-2023 Troponin I High Sensitivity 7 pg/mL 3.0-54.0 [facility] Comment on above: Please Note: New [place] t Units and Gender Specific Reference Ranges. For more information see Policy Stat Procedure Placida High Sensitivity Troponin (TNIH) and attachments. D-Dimer Quantitative (PE/DVT) 0.42 FEU/ug/m 0.27-0.49 [facility] Comment on above: NORMAL D-Dimer level (<0.50) indicates no DVT or PE. Estimated Creatinine Clearance Calc 54.58 ml/min [facility] Estimated GFR (MDRD) Amer 86 mL/min >60 [facility] Comment on above: GFR Calc Estimated GFR (MDRD) Non-Af Amer 71 mL/min >60 [facility] Comment on above: Non- GFR Calc Platelets bldOrdered By: Dr. Cruz on 03-15-2023 Platelets (Bld) [#/Vol] 317 10*3/uL 150-450 [facility] Serum or plasma calcium bridger urement (mass/volume)Ordered By: Dr. Cruz on 03-15-2023 Calcium [Mass/Vol] 9.4 mg/dL 8.5-10.1 [facility] Serum or plasma creatinine m easurement (mass/volume)Ordered By: Dr. Cruz on 03-15-2023 Creatinine [Mass/Vol] 0.84 mg/dL 0.55-1.02 [facility] Comment on above: The validity of the calculated GFR & GFRAA in patients over 70 years has not been determined. Clinical correlation is essential. Serum or plasma urea nitroge n measurement (mass/volume)Ordered By: Dr. Cruz on 03-15-2023 Urea nitrogen [Mass/Vol] 16 mg/dL 7-18 [facility] Thin prep Papanicolaou smear with manual screeningOrdered By: Dr. Cruz on 03-15-2023 Thin prep Papanicolaou smear with manual screening 5 5-15 [facility] CNPTOUTREACHon 12-19-[address] 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 Elderbrock Last patient activity 05-05-16 Last PCP visit 04-19-15 Based on this information has been removed as PCP. Patient identified by name and . Jah Kendall MA Allergies As of Date: 12/19/2019 Noted Allergy Reaction ANCEF (CEFAZOLIN SODIUM) 09/05/2007 12 - Shortness of Breath HYDROCODONE-ACETAMI NOPHEN 12/08/2010 11 - Vomiting Comments: told by hand surgeon not to take any pain meds in this class Z PACK (AZITHROMYCIN) 01/03/2011 5 - Intolerance Comments: cigarette smell Date Reviewed: 04/19/2015 Reviewed by: Karo Tapia Ma - Fully Assessed Reason for Visit: PHMA/Care Gap Outreach [1201] Prescriptions as of 12/19/2019 Sig: FAMCICLOVIR 500 [...] Meniere's disease [H81.09] 04/19/2015 Encounter Status:Closed by JAH KENDALL on 12/19/19 [facility] PROGRESSon 12-19-2019 PROGRESS HNO ID: [id number] Author: Jah Kendall Service: ? Author Type: Cloth Baler Type: Progress Notes Filed: 12/19/2019 2:57 PM Note Text: [facility] FIELD STAFF MANAGER QUICKNOTE Provider Action/FYI: Patients charted reviewed in teamlet with Dr. Montgomery Last patient activity 05-05-16 Last PCP visit 04-19-15 Based on this information has been removed as PCP. Patient identified by name and . Jah Kendall MA [facility] Vital Signs Date Time Vital Sign Value Performing Clinician Faci lity 08-08-2025 23:30-0400 Body temperature 98 [degF] Dr. Neftali Lowe MD Work Phone: [facility] 08-08-2025 23:30-0400 Diastolic blood pressure 64 mm[Hg] Dr. Neftali Lowe MD Work Phone: [phone] [place] [address] 08-08-2025 23:30-0400 Heart rate 71 /min Dr. Neftali Lowe MD Work Phone: 8([phone] [place] [address] 08-08-2025 23:30-0400 Respiratory rate 16 /min Dr. Neftali Lowe MD Work Phone: [facility] 08-08-2025 23:30-0400 SaO2% (BldA) [Mass fraction] 95 % Dr. Neftali Lowe MD Work Phone: [facility] 08-08-2025 23:30-0400 Systolic blood pressure 136 mm[Hg] Dr. Neftali Lowe MD Work Phone: [facility] 08-08-2025 18:09-0400 Body height 165.[address] Neftali Lowe MD Work Phone: [facility] 08-08-2025 18:09-0400 Body mass index (BMI) [Ratio] 32.3 kg/m2 Dr. Neftali oLwe MD Work Phone: [facility] 08-08-2025 18:09-0400 Body weight 88.[address] Neftali Lowe MD Work Phone: [facility] 08-15-2023 10:52-0400 Body height 162.56 cm [facility] 03-15-2023 14:34-0400 Diastolic blood pressure 86 mm[Hg] [facility] 03-15-2023 14:34-0400 Systolic blood pressure 159 mm[Hg] [facility] 03-15-2023 14:00-0400 Heart rate 66 /min [facility] 03-15-2023 14:00-0400 Respiratory rate 18 /min [facility] 03-15-2023 14:00-0400 SaO2% (BldA) [Mass fraction] 98 % [facility] 03-15-2023 09:58-0400 Body height 162.56 cm [facility] 03-15-2023 09:58-0400 Body mass index (BMI) [Ratio] 33.7 kg/m2 [facility] 03-15-2023 09:58-0400 Body temperature 97 [degF] [facility] 03-15-2023 09:58-0400 Body weight 89.08 kg [facility] Encounters Encounter Date Encounter Type Care Provider Facility Start: 08-26-2025 Encounter for genera l adult medical examination without abnormal findings Fransisca Garduno [facility] Start: 08-26-2025 ambulatory Fransisca Garduno Facil ity:[facility] Start: 08-08-2025 End: 08-08-2025 Emergency department patient visit Dr. Tiffanie Cruz DO -Emergency Department Work Phone: Start: 11-11-2024 Encounter for genera l adult medical examination without abnormal findings Neftali Lowe [facility] Start: 11-10-2024 End: 11-10-2024 Emergency department patient visit Carroll Saenz Facility:[facility] Start: 10-13-2024 End: 10-13-2024 ambulatory Neftali Lowe Facility:[facility] Start: 09-14-2023 End: 09-14-2023 ambulatory [facility] Work Phone: Start: 09-14-2023 End: 09-14-2023 Patient encounter procedure [facility] Start: 08-15-2023 End: 08-15-2023 Patient encounter procedure [facility]-Outpatient Bone Densitometry Work Phone: Start: 03-15-2023 End: 03-15-2023 Emergency department patient visit [facility]-Emergency Department Procedures Date Procedure Procedure Detail Performing Clinician Start: 08-08-2025 CT of head without contrast Dr. Neftali Lowe MD Work Phone: Start: 08-08-2025 Plain chest X-ray Dr. Jaime Lowe MD Work Phone: Start: 08-08-[address] Neftali Lowe MD Work Phone: Start: 08-15-2023 Dual energy X-ray absorptiometry Start: 03-15-2023 Plain chest X-ray Plan of Treatment Date Care Activity Detail Author Start: 08-08-2025 [facility] Start: 08-08-2025 End: 08-08-2025 [facility] Start: 03-15-2023 [facility] Patient Education [facility] Work Phone: Patient referral [facility] Work Phone: Payers Date Payer Category Payer Unknown [id number] 2024 Self-pay [id number] 2024 Unknown [id number] Unknown [id number] [id number] [id number] Unknown [id number] [id number] Unknown [id number] 2.16.8 [id number] Unknown [id number] [id number] Social History Date Type Detail Facility Start: [facility]23 [facility] Start: 1955 Sex Assigned At Female W [facility] Start: 09-20-2025 [facility] Never [facility] tobacco (finding) [facility] Sex Female [facility] Mental Status Date Assessment Result Facility 08-08-2025 Cognitive function Voice/Name [facility] Work Phone: 03-15-2023 Cognitive function Voice/Name [facility] Work Phone: Discharge summary 08-08-2025 Note Date & Type Note Facility 08-08-2025 Discharge summary [facility] Radiology Diagnostic study note 08-08-2025 Note Date & Type Note Facility 08-08-2025 Radiology Diagnostic study note [facility] Services [address] [place], [place] [address] Brain/Head without Contrast MR#: [id number] Acct: [id number] Name: CAN MALLORY Rep #: [id number] : 1955 F 69 From: Pako Braden MD PCP: Dr. Neftali Lowe MD Status: REG E R Study:Brain/Head without Contrast Date of Exa m: 08/08/25 Exam# [id number] Ordering Dr: Naman Cruz DO PROCEDURE: CT BRAIN/HEAD WITHOUT CONTRAST 08/08/2025 REASON FOR EXAM: LEFT SIDED PARESTHESIAS TECHNIQUE: Procedure Code: CTBR Modality: CT Procedure: BRAIN/HEAD WITHOUT CONTRAST Coronal and Sagittal reconstruction series were provided. One or more dose reduction techniques were used (e.g., Automated exposure control, adjustment of the mA and/or kV according to patient size, use of iterative reconstruction technique. RADIATION DOSE SUMMARY: CTDlvol: 44.99 mGy DLP: 796.11 mGycm COMPARISON: None. FINDINGS: No acute intracranial hemorrhage, extra-axial collection, mass effect or evidence of acute infarct. Ventricles and subarachnoid spaces are normal in size. Orbital contents are unremarkable. Intact skull base and calvarium. Clear paranasal sinuses and mastoid air cells. CT/Brain/Head without Contrast IMPRESSION: Unremarkable head CT. Reading Location: [facility] CC: Dr. Tiffanie Cruz DO; Dr. Neftali Lowe MD ~ [employer] Routeman: Signed [facility] Radiology Diagnostic study note 08-08-2025 Note Date & Type Note Facility 08-08-2025 Radiology Diagnostic study note [facility] Services [address] [place] [address] Chest 1 View (Portable) MR#: [id number] Acct: [id number] Name: CAN MALLORY Rep #: [id number] : 1955 F 69 From: Janine Brooks MD PCP: Dr. Neftali Lowe MD Status: PRE E R Study:Chest 1 View (Portable) Date of Exam: 08/08/25 Exam# [id number] Ordering Dr: Provider ,Ed P. PROCEDURE: CHEST 1 VIEW (PORTABLE) 08/08/2025 REASON FOR EXAM: CHEST PAIN TECHNIQUE: Frontal view of the chest. COMPARISON: Chest x-ray March 15, 2023. Prior report is not available. FINDINGS: Lungs: The lungs are symmetrically expanded. Lung volumes are low. Slightly coarsened reticular lung markings again noted likely due to chronic interstitial thickening. There is no consolidation. There is no peribronchial thickening. There is no pulmonary vascular redistribution. Pleura: No significant pleural effusion seen. There is no evidence of pneumothorax. Mediastinum: There is no mediastinal widening or mediastinal shift. Heart: The cardiac silhouette is not enlarged. Jayson: The pulmonary jayson are not enlarged or retracted. Osseous: No acute fracture is seen. Mild degenerative changes of the spine and shoulders. RAD/Chest 1 View (Portable) IMPRESSION: Low lung volumes. No acute infiltrate seen. Other findings discussed above. Reading Location: [id number] CC: Dr. Neftali Lowe MD; ED PHYSICIAN PROVIDER ~ [employer] Routeman: Signed [facility] Discharge summary 08-08-2025 Note Date & Type Note Facility 08-08-2025 Discharge summary Note Date/Time August 08, 2025 11:45pm [facility] Medical Records Department [address] [place] [address] Emergency Department Summary 08/08/25 MR#: [id number] Acct: [id number] Name: CAN MALLORY Rep #:[id number] : 1955 69 From: Tiffanie Welsh PCP: Dr. Neftali Lowe MD Status:DEP E R Location: ED [facility] History of Present Illness Chief Complaint: Chest Pain Informant: patient Narrative Narrative: Patient is a 69-year-old female with history of anxiety, GERD, hypertension (states she does not currently have hypertension nor does she take blood pressure medication) and vertigo/M?ni?re's disease presenting for left-sided chest discomfort. Patient notes that earlier today she had a dull ache in her left shoulder going down to her elbow. It seemed to improve within earlier in the evening she developed discomfort in her left thigh area and then around 530 or 6 PM developed a tightness in her left chest. States she is has been feelingwell today has been very tired. Notes that she has recently had some stomach issues with increased acid reflux and bloating but that feels like it is more inher left side of her body. Also notes for couple weeks she has been having episodes of tingling on the left side of her body. Last for few hours at a time. She denies any shortness of breath. She denies any swelling of her legs. States she felt just fine yesterday. She is not sure if this is anxiety or something more. Came in for further evaluation. [facility] Medical History Meniere's disease HTN (hypertension) Vertigo Home Medications ?Medication ?Instructions ?Recorded ?Last Taken ?Type aspirin 81 mg chewable tablet 81 mg PO DAILY@0800 ##30 01/16/18 Unknown Rx lorazepam 0.5 mg tablet (Ativan) 0.5 mg PO BID PRN anx iety #6 tabs 08/08/25 Unknown Rx omeprazole 20 mg capsule,delayed 20 mg PO DAILY Unknown History release Allergy/AdvReac Type Severity Reaction Status Date / Time cefazolin (From [facility]) Allergy Shortness Verified 08/08/25 18:09 of breath codeine Allergy Unknown Verified 08/08/25 18:09 Social History household members: spouse Smoking Status: Never smoker ROS ROS ED Constitutional Constitutional ED: Denies chills or fever(s) ENT ENT ED: Denies sore throat Cardiovascular Cardiovascular: Reports as per HPI and chest pain; Denies palpitations Respiratory/Chest Respiratory/Chest: Denies cough or dyspnea Gastrointestinal Gastrointestinal: Reports abdominal pain and other Details: Reports mild GI upset/acid reflux and abdominal bloating ; Denies diarrhea or nausea Musculoskeletal Musculoskeletal: Reports myalgias; Denies arthralgias Integumentary Denies Abrasions or rash Neurologic Neurologic: Reports paresthesias LUE and LLE (Has had intermittent paresthesias for the past few days to weeks. None currently) Psychiatric Psychiatric: Reports anxiety Hematologic/Lymphatic Hematologic/Lymphatic: Denies easy bleeding or easy bruising EXAM Physical Exam Const Vital Signs: 08/08/25 18:07 08/08/25 18:09 08/08/25 18:14 Temperature 97.1 F L Temperature Source Temporal Pulse Rate 84 83 Respiratory Rate 16 18 Respiratory Effort Normal Non-Labored Blood Pressure 211/91 H 206/106 H Blood Pressure Mean 131 139 Pulse Ox 98 100 Oxygen Delivery Method Room Air Room Air 08/08/25 18:52 08/08/25 19:00 08/08/25 19:00 Temperature Temperature Source Pulse Rate 79 77 Respiratory Rate 17 18 Respiratory Effort Blood Pressure 195/90 H 175/83 H Blood Pressure Mean 125 113 Pulse Ox 98 99 Oxygen Delivery Method Room Air Room Air Room Air 08/08/25 20:00 08/08/25 21:00 08/08/25 21:30 Temperature Temperature Source Pulse Rate 77 88 78 Respiratory Rate 18 17 18 Respiratory Effort Blood Pressure 181/82 H 182/94 H 194/92 H Blood Pressure Mean 115 123 126 Pulse Ox 98 100 98 Oxygen Delivery Method Room Air Room Air Room Air 08/08/25 22:00 08/08/25 22:00 08/08/25 22:30 Temperature Temperature Source Pulse Rate 83 81 76 Respiratory Rate 18 18 18 Respiratory Effort Blood Pressure 191/88 H 191/88 H 170/71 H Blood Pressure Mean 122 122 104 Pulse Ox 99 99 93 Oxygen Delivery Method Room Air Room Air 08/08/25 23:00 08/08/25 23:30 Temperature 98 F Temperature Source Pulse Rate 70 71 Respiratory Rate 14 16 Respiratory Effort Blood Pressure 142/63 H 136/64 H Blood Pressure Mean 89 88 Pulse Ox 96 95 Oxygen Delivery Method Room Air Positive well nourished and well developed General Appearance ED: well developed and NAD HEENT Reports moist mucous membranes normocephalic and atraumatic Eyes PERRL and EOMs intact bilaterally Neck supple and no JVD Chest Wall inspection of chest normal Chest Narrative: No chest wall crepitus. Mild tenderness palpation of the left anterior chest wall. Resp normal respiratory effort and clear to auscultation bilaterally Cardio regular rate, regular rhythm and no murmurs Cardio Narrative: 2+ radial DP pulses GI normal to inspection, nondistended, normoactive bowel sounds and soft to palpation Extremity normal to inspection General Extremety ED: Negative for edema General Extremity: Negative for edema Neuro oriented x3, CN's II-XII intact bilaterally and no sensory deficits noted Neuro Narrative: NIH equals 0 Sensorium / Orientation: awake and alert Motor Exam: strength 5/5 throughout; Negative for general weakness Psych Mood & Affect: anxious Skin no rashes or lesions noted and no wounds Heart Score History: Slightly/Non-Suspicious ECG: Normal Age: >/= 65 years Risk Factors: 1 or 2 Risk Factors Troponin: </= Normal Limit Score: 3 MDM MDM MDM Narrative Medical decision making narrative: Patient is evaluated for left-sided chest discomfort as well as elevated blood pressure. She also reports she has had this vague intermittent tingling on the left side of her body. Does not sound consistent with ACS however given her elevated blood pressure did also consider TIA or intracranial hemorrhage. In addition to cardiac workup CT of the brain is obtained. Will check TSH to ensure she does not have acute thyroid abnormality causing hersymptoms. Check BMP to check for any electrolyte derangement or signs of endorgan damage from her elevated blood pressure. CT of the brain does not show any acute process. CBC and BMP is normal. Initial high-sensitivity troponin is normal at 13. TSH is normal. Delta high-sensitivity troponin is now at 16. While this technically is a delta of less than 4 given her significantly elevated blood pressure I did suggest we check a 4-hour troponin level. This repeat is only 18 and her total delta is less than 6 which is not consistent with ACS and low risk per our guidelines. Chest x-ray reviewed by myself as well as radiology does not show any acute process. After the second delta patient does start to become very anxious and feels that she should just leave the ER. I did encourage her to stay and she would like some anxiety medicine to be more comfortable. Also given Tylenol she states shehas a headache. Is given a dose of IV Ativan 0.5 mg as well as acetaminophen. Repeat evaluation her blood pressure is now normalized to 136/64 she states her symptoms have resolved and she is feeling much better. Given her overall reassuring cardiac workup and this pretty significant change in blood pressure and symptoms I do wonder if there is a significant anxiety component to her presentation today. Patient would like to be discharged home. Given her largely negative workup I think this is reasonable. She is a good candidate for outpatient follow-up. Encouraged to follow-up with her primary care doctor for this as I do think she would benefit from further outpatient testing. Also discussed keeping a blood pressure log and checking her blood pressure once a day or every few days for which she follows with her primary care doctor. She verbalized agreement understand this plan. Will be given a short prescription for Ativan for breakthrough anxiety symptoms. Encouraged to return to the emergency room should she have worsening symptoms including worsening chest pain or continued elevated blood pressure readings. She normalized so much with only anxiety medicine and I am hesitant to start her any blood pressure medicine at this time. Will have her follow-up with her primary care doctor for this Lab Data Attestation: I reviewed the patient's lab results. Labs: Laboratory Results - last 24 hr 08/08/25 08/08/25 08/08/25 18:25 20:34 22:14 WBC 7.3 RBC 5.14 Hgb 14.7 Hct 45.0 MCV 87.5 MCH 28.6 MCHC 32.7 RDW Std Deviation 40.0 RDW Coeff of Melissa 12.6 Plt Count 296 MPV 10.0 Immature Gran % (Auto) 0.100 Neut % (Auto) 55.2 Lymph % (Auto) 34.1 Jasper % (Auto) 7.2 Eos % (Auto) 3.0 Baso % (Auto) 0.4 Absolute Neuts (auto) 4.0 Absolute Lymphs (auto) 2.47 Nucleated RBC % 0 Sodium 139 Potassium 4.0 Chloride 103 Carbon Dioxide 24.1 Anion Gap 12 BUN 16 Creatinine 0.75 Estim Creat Clear Calc 70.75 Est GFR (MDRD) Non-Af 85 BUN/Creatinine Ratio 21.1 H Glucose 88 Calcium 9.4 Troponin T High Sens 13 Troponin T Hi Sens 2 Hr 16 H Troponin T Hi Sens 4Hr 18 H TSH 2.220 Radiography Chest X-Ray - ED: 1 View, Read by ED Physician, Read by Radiologist and No AcuteDisease Diagnostic Testing: Clinical Impression(s) from Imaging Studies Chest X-Ray 08/08/25 18:55 IMPRESSION: Low lung volumes. No acute infiltrate seen. Other findings discussed above. Reading Location: [facility] Brain CT 08/08/25 19:51 IMPRESSION: Unremarkable head CT. Reading Location: [facility] Rhythm Strip Rhythm Strip: Sinus Rhythm Rate: 79 Ectopy: None EKG Initial EKG: Attestation: I personally reviewed and interpreted this EKG as follows: Interpretation: Sinus Rhythm Comments: Normal sinus rhythm rate of 79 bpm Left axis deviation Incomplete right bundle branch block Normal ST segment Prior EKG tracings: available for review Prior: Unchanged (From 11/10/2020) Discharge Plan Triage Chief Complaint: Chest Pain ED Provider: Tiffanie Cruz Dx/Rx/DC Orders Clinical Impression: Atypical chest pain, Anxiety, Elevated blood pressure reading Instructions: ED Chest Pain, Uncertain Cause, ED Hypertension, To Be Confirmed Prescriptions: New lorazepam [Ativan] 0.5 mg tablet 0.5 mg PO BID PRN (Reason: anxiety) Qty: 6 0RF No Action aspirin 81 MG tablet,chewable 81 mg PO DAILY@0800 Qty: 30 0RF omeprazole 20 mg capsule,delayed release(DR/EC) 20 mg PO DAILY Primary Care Provider: Neftali Lowe Referrals: Neftali Lowe MD [Primary Care Provider, Family Practice] Activity Restrictions/Additional Instructions: Your blood pressure was initially quite elevated however did normalize. Your workup overall was reassuring. Please follow-up with your family medicine doctor for blood pressure check and further evaluation of this chest pain. Be aprogression or worsening symptoms please return to the emergency room. Recommend keeping a blood pressure log continue follow-up with family doctor (check your blood pressure once a day or every other day) so he can review it Print Language: Polish Disposition Disposition: Home, Self Care Discharge Date/Time: 08/08/25 23:45 What to do if you have Problems For any increased pain, shortness of breath, bleeding, nausea or vomiting, chestpain, or any unexpected problems, contact your Primary Care Provider. Call [facility] ([phone]) or report to the closest Emergency Room. Call 911 if necessary. 08/09/25 0136 <Electronically signed by Tiffanie Cruz DO> Cosigner Signature (if applicable): CC: Dr. Neftali Lowe MD ~ Signed [facility] Work Phone: Evaluation note Note Date & Type Note Facility Evaluation note No assessment information availa ble [facility] Work Phone: Hospital Discharge instructions Note Date [...] attack, pneumonia, collapsed lung or blood clots. [facility] Work Phone: Hospital Discharge instructions Note Date & Type Note Facility Hospital Discharge instructions Additional Instructions Your blood pressure was initially quite elevated however did normalize. Your workup overall was reassuring. Please follow-up with your family medicine doctor for blood pressure check and further evaluation of this chest pain. Be a progression or worsening symptoms please return to the emergency room. Recommend keeping a blood pressure log continue follow-up with family doctor (check your blood pressure once a day or every other day) so he can review it [facility] Work Phone: Reason for referral (narrative) Note Date & Type Note Facility Reason for referral (narrative) No reason for referral information available [facility] Work Phone: Summary Purpose Family History No Family History Records Found Relationship Condition Age at Onset Recorded Date/T leo Unknown Family History?No pe rtinent history Unknown January 15, 2018 11:22pm Family History?No pe rtinent history Unknown January 15, 2018 11:22pm Advance Directives No Advanced Directives Records Found Advance Directive Response Recorded Date/ Time Living Will No March 15, 2023 10:18am Power of Provider Relations Representative No March 15 10:18am Advance Directive Response Recorded Date/ Time Do you have a Healthcare Power of Provider Relations Representative? 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 Neftali Lowe MD Primary care physician Active Team Status: Inactive Member Role/Relationship Status Dates Dr. Neftali Lowe MD Primary care physician Active Start: August 08, 2025 End: August 08, 2025 Dr. Tiffanie Cruz DO Attending physician Active Start: August 08, 2025 End: August 08, 2025 Dr. Tiffanie Cruz DO Emergency Departm ent Physician Active Start: August 08, 2025 End: August 08, 2025 Goals (unrecognized section and content) Goals may be documented in a n alternate sectionGoals may be documented in an alternate sectionGoals may be documented in an [...] BE BASED ON THE PRIMARY CLINICAL RECORDS. [employer] provides no warranty or guarantee of the accuracy or completeness of information in this document.
[2025-09-12 09:23] LABS: Cholesterol 224 mg/dL (<=200); Low Density Lipoprotein Calc. 141 mg/dL; Triglycerides 92 mg/dL; Very Low Density Lipoprotein 18 mg/dL (5-40); cholesterol:hdl ratio screen 3.36
== END | disposition home or self-care (01) ==
LOC: LAB 07:58
PROVIDERS: PCP Family Medicine; Referring Provider Registered Nurse
DX: Z00.00 Encounter for general adult medical examination without abnormal findings (principal)
CPT/HCPCS: 36415; 80061